=== PATIENT | female | born 1965 | race American Indian/Alaskan Native ===

== ENCOUNTER 2018-04-30 17:01 | Emergency (ER) | payer MEDICARE ==
--- NOTE | 2018-04-30 17:50 | Emergency Department Report ---
Blank Doc - Documentation Documentation: Pt reports cyst on lt breast x 3 days. similar episode abscess on stomach.H/O HIV, DM and HTN. denies fever. Taking HIV medicine and sleeping pills. reports hiv and PCP md TIMMONS Skin: Indurated area to LUQ abdomen. TTP. positive fluctuance his initial assessment diagnostic orders/clinical plan/treatment (s) is/Are subject change based on patient's health status, clinical progression and re- assessment by fellow clinical providers in the ED. Further treatment and work-up at subsequent clinical providers discetion. Patient/guardians urged not to elope from s their condition may be serious if not clinically assessed and managed. Inital order include:incision and drainage of wound, wound CX
[2018-04-30 22:14] LABS: Basophils % (Auto) 0.5 % (0.0-1.8); Eosinophils # (Auto) 0.1 K/mm3 (0.0-0.4); Eosinophils % (Auto) 1.4 % (0.0-4.3); Hematocrit 30.1 % (30.3-42.9); Hemoglobin 10.4 gm/dl (10.1-14.3); Lymphocytes # (Auto) 1.4 K/mm3 (1.2-5.4); Lymphocytes % (Auto) 15.1 % (13.4-35.0); Mean Corpuscular HGB Conc 35 % (30-34); Mean Corpuscular Volume 97 fl (79-97); Monocytes # (Auto) 0.9 K/mm3 (0.0-0.8); Monocytes % (Auto) 9.6 % (0.0-7.3); Platelet Count 262 K/mm3 (140-440); Red Blood Count 3.11 M/mm3 (3.65-5.03); Red Cell Distribution Width 17.3 % (13.2-15.2)
[2018-04-30 22:23] LABS: Alanine Aminotransferase 46 units/L (7-56); Albumin 3.2 g/dL (3.9-5); BUN/Creatinine Ratio 17; Blood Urea Nitrogen 45 mg/dL (7-17); Calcium 8.7 mg/dL (8.4-10.2); Hemolysis Index 4
--- NOTE | 2018-04-30 23:21 | XRay Report ---
PROCEDURE: XR CHEST ROUTINE 2V TECHNIQUE: PA and lateral chest radiographs were obtained. HISTORY: Chest wall pain COMPARISONS: None. FINDINGS: Heart: Normal. Mediastinum/Vessels: Normal. Lungs/Pleural space: Normal. No pneumothorax is noted. Bony thorax: No acute osseous abnormality. No evidence for acute rib fracture is seen. IMPRESSION: No acute cardiopulmonary process seen.. This document is electronically signed by Myrna Wood MD., April 30 2018 10:36:49 PM ET
[2018-05-01] MEDS ORDERED: XYLOCAINE 1%/ EPI 1:100,000 INFILTRATI NR (01:00)
[2018-05-01] MEDS ORDERED: CATAPRES PO ONE (02:42)
--- NOTE | 2018-05-01 03:07 | Emergency Department Report ---
ED General Adult HPI - General Chief complaint: Skin/Abscess/Foreign Body Stated complaint: ABSCESS ON BREAST Time Seen by Provider: 04/30/18 17:44 Source: patient Mode of arrival: Ambulatory Limitations: No Limitations - History of Present Illness Initial comments: She is a 52-year-old female past medical history of HIV who presents with left chest wall abscess. She states that the pain is a 7 out 10 and it is an achy type of pain. Putting pressure on it makes it worse and nothing makes it better. Patient states that it's been there for the last 3 days this incredibly tender to touch. Severity scale (0 -10): 7 - Related Data Previous Rx's Medication Instructions Recorded Last Taken Type Sulfamethoxazole/Trimethoprim 1 each PO BID #12 tablet 05/01/18 Unknown Rx [Bactrim DS TAB] Sulfamethoxazole/Trimethoprim 1 each PO ONCE #12 tablet 05/01/18 Unknown Rx [Bactrim DS TAB] traMADol [Ultram 50 MG tab] 50 mg PO Q6HR PRN #11 tablet 05/01/18 Unknown Rx Allergies Allergy/AdvReac Type Severity Reaction Status Date / Time No Known Allergies Allergy Verified 05/01/18 00:55 ED Review of Systems ROS: Stated complaint: ABSCESS ON BREAST Other details as noted in HPI Constitutional: denies: chills, fever Eyes: denies: eye pain, eye discharge, vision change ENT: denies: ear pain, throat pain Respiratory: denies: cough, shortness of breath, wheezing Cardiovascular: denies: chest pain, palpitations Endocrine: no symptoms reported Gastrointestinal: denies: abdominal pain, nausea, diarrhea Genitourinary: denies: urgency, dysuria, discharge Musculoskeletal: denies: back pain, joint swelling, arthralgia Skin: as per HPI, rash. denies: lesions Neurological: denies: headache, weakness, paresthesias Psychiatric: denies: anxiety, depression Hematological/Lymphatic: denies: easy bleeding, easy bruising ED Past Medical Hx - Past Medical History Hx Hypertension: Yes Hx Diabetes: Yes Hx HIV: Yes - Surgical History Hx Cholecystectomy: Yes Additional Surgical History: abscess removed - Social History Smoking Status: Current Some Day Smoker Substance Use Type: None - Medications Home Medications: Home Medications Medication Instructions Recorded Confirmed Last Taken Type Sulfamethoxazole/Trimethoprim 1 each PO BID #12 tablet 03/03/19 Unknown Rx [Bactrim DS TAB] Sulfamethoxazole/Trimethoprim 1 each PO ONCE #12 tablet 05/01/18 Unknown Rx [Bactrim DS TAB] traMADol [Ultram 50 MG tab] 50 mg PO Q6HR PRN #11 tablet 05/01/18 Unknown Rx ED Physical Exam - General Limitations: No Limitations General appearance: alert, in no apparent distress - Head Head exam: Present: atraumatic, normocephalic - Eye Eye exam: Present: normal appearance - ENT ENT exam: Present: mucous membranes moist - Neck Neck exam: Present: normal inspection - Respiratory Respiratory exam: Present: normal lung sounds bilaterally, other (3x3 cm abscess). Absent: respiratory distress - Cardiovascular Cardiovascular Exam: Present: regular rate, normal rhythm. Absent: systolic murmur, diastolic murmur, rubs, gallop - GI/Abdominal GI/Abdominal exam: Present: soft, normal bowel sounds - Extremities Exam Extremities exam: Present: normal inspection - Back Exam Back exam: Present: normal inspection - Neurological Exam Neurological exam: Present: alert, oriented X3 - Psychiatric Psychiatric exam: Present: normal affect, normal mood - Skin Skin exam: Present: warm, dry, intact, normal color. Absent: rash ED Course Vital Signs 04/30/18 05/01/18 05/01/18 17:06 00:40 00:45 Temperature 98.7 F 99.2 F Pulse Rate 104 H 94 H Respiratory 16 16 Rate Blood Pressure 197/94 Blood Pressure 206/107 [Right] O2 Sat by Pulse 98 100 100 Oximetry 05/01/18 05/01/18 05/01/18 00:46 01:01 02:01 Temperature Pulse Rate 92 H 92 H 89 Respiratory 16 22 27 H Rate Blood Pressure 206/107 220/113 216/108 Blood Pressure [Right] O2 Sat by Pulse 100 99 100 Oximetry 05/01/18 02:55 Temperature Pulse Rate 93 H Respiratory Rate Blood Pressure 216/108 Blood Pressure [Right] O2 Sat by Pulse Oximetry - I & D Left Anterior Type of Procedure: Simple Site: under left breast Blade Size: 11 I & D Procedure: betadine prep, sterile dressing applied ED Medical Decision Making - Lab Data Result diagrams: 04/30/18 21:50 04/30/18 21:50 Lab Results 04/30/18 04/30/18 04/30/18 Range/Units 21:50 21:50 21:50 WBC 9.3 (4.5-11.0) K/mm3 RBC 3.11 L (3.65-5.03) M/mm3 Hgb 10.4 (10.1-14.3) gm/dl Hct 30.1 L (30.3-42.9) % MCV 97 (79-97) fl MCH 34 H (28-32) pg MCHC 35 H (30-34) % RDW 17.3 H (13.2-15.2) % Plt Count 262 (140-440) K/mm3 Lymph % (Auto) 15.1 (13.4-35.0) % [place] % (Auto) 9.6 H (0.0-7.3) % Eos % (Auto) 1.4 (0.0-4.3) % Baso % (Auto) 0.5 (0.0-1.8) % Lymph # 1.4 (1.2-5.4) K/mm3 [place] # 0.9 H (0.0-0.8) K/mm3 Eos # 0.1 (0.0-0.4) K/mm3 Baso # 0.0 (0.0-0.1) K/mm3 Seg Neutrophils % 73.4 H (40.0-70.0) % Seg Neutrophils # 6.8 (1.8-7.7) K/mm3 Sodium 136 L (137-145) mmol/L Potassium 4.2 (3.6-5.0) mmol/L Chloride 104.4 (98-107) mmol/L Carbon Dioxide 19 L (22-30) mmol/L Anion Gap 17 mmol/L BUN 45 H (7-17) mg/dL Creatinine 2.7 H (0.7-1.2) mg/dL Estimated GFR 18 ml/min BUN/Creatinine Ratio 17 % Glucose 105 H (65-100) mg/dL Lactic Acid 0.80 (0.7-2.0) mmol/L Calcium 8.7 (8.4-10.2) mg/dL Total Bilirubin < 0.20 (0.1-1.2) mg/dL AST 22 (5-40) units/L ALT 46 (7-56) units/L Alkaline Phosphatase 138 H (35-129) units/L C-Reactive Protein 2.00 H (0.00-1.30) mg/dL Total Protein 7.4 (6.3-8.2) g/dL Albumin 3.2 L (3.9-5) g/dL Albumin/Globulin Ratio 0.8 % HCG, Qual (Negative) 04/30/18 Range/Units 21:50 WBC (4.5-11.0) K/mm3 RBC (3.65-5.03) M/mm3 Hgb (10.1-14.3) gm/dl Hct (30.3-42.9) % MCV (79-97) fl MCH (28-32) pg MCHC (30-34) % RDW (13.2-15.2) % Plt Count (140-440) K/mm3 Lymph % (Auto) (13.4-35.0) % [place] % (Auto) (0.0-7.3) % Eos % (Auto) (0.0-4.3) % Baso % (Auto) (0.0-1.8) % Lymph # (1.2-5.4) K/mm3 [place] # (0.0-0.8) K/mm3 Eos # (0.0-0.4) K/mm3 Baso # (0.0-0.1) K/mm3 Seg Neutrophils % (40.0-70.0) % Seg Neutrophils # (1.8-7.7) K/mm3 Sodium (137-145) mmol/L Potassium (3.6-5.0) mmol/L Chloride (98-107) mmol/L Carbon Dioxide (22-30) mmol/L Anion Gap mmol/L BUN (7-17) mg/dL Creatinine (0.7-1.2) mg/dL Estimated GFR ml/min BUN/Creatinine Ratio % Glucose (65-100) mg/dL Lactic Acid (0.7-2.0) mmol/L Calcium (8.4-10.2) mg/dL Total Bilirubin (0.1-1.2) mg/dL AST (5-40) units/L ALT (7-56) units/L Alkaline Phosphatase (35-129) units/L C-Reactive Protein (0.00-1.30) mg/dL Total Protein (6.3-8.2) g/dL Albumin (3.9-5) g/dL Albumin/Globulin Ratio % HCG, Qual Negative (Negative) - Radiology Data Radiology results: report reviewed, image reviewed Chest x-ray: Shows no acute cardiopulmonary disease - Medical Decision Making Chief medical diagnosis: Abscess Differential diagnoses: Cellulitis, folliculitis Occupational oral pain medicine and antibiotics and I will incise and drain Patient's blood work is unremarkable I will send patient home with discharge instructions. Additonal verbal discharge instructions were given. Critical care attestation.: If time is entered above; I have spent that time in minutes in the direct care of this critically ill patient, excluding procedure time. ED Disposition Clinical Impression: Abscess Disposition: DC-01 TO HOME OR SELFCARE Is pt being admited?: No Does the pt Need Aspirin: No Condition: Stable Instructions: Abscess Incision and Drainage (ED) Prescriptions: Sulfamethoxazole/Trimethoprim [Bactrim DS TAB] 1 each PO BID #12 tablet traMADol [Ultram 50 MG tab] 50 mg PO Q6HR PRN #11 tablet PRN Reason: Pain Referrals: NAEEM GROVE MD [Staff Physician] - 3-5 Days
[2018-05-01] MEDS ORDERED: BACTRIM DS PO ONE (03:41)
[2018-05-01 04:13] VITALS: BP 197/81
== END 2018-05-01 04:13 | disposition home or self-care (01) ==
LOC: ED 17:01
DX: L02.213 Cutaneous abscess of chest wall (principal); I10 Essential (primary) hypertension; E11.9 Type 2 diabetes mellitus without complications; F17.200 Nicotine dependence, unspecified, uncomplicated
CPT/HCPCS: 36415; 71046; 80053; 82140; 84703; 85025; 86140; 87040; 99283

== ENCOUNTER 2018-05-05 14:19 | Emergency (ER) | payer MEDICARE ==
--- NOTE | 2018-05-05 14:51 | Emergency Department Report ---
HPI - General Chief Complaint: Medical Clearance Time Seen by Provider: 05/05/18 14:42 - HPI HPI: 52-year-old female presents to the emergency department for mental health evaluation. Per previous records, she appears to have a history o f HIV. She was here a few days ago and diagnosed with a chest wall abscess and discharged home. Currently, the patient appears to be having some psychosis and is a poor historian. She was placed in room 17 for evaluation. She took a bucket of medical supplies and fell down onto the ground. She then proceeded to go out into the hallway and laid down on a gurney that had no padding or mattress. The patient can answer a few questions but mostly says "I don't know" to questions asked such as how she got here, the reason she was brought in. ED Past Medical Hx - Past Medical History Hx Hypertension: Yes Hx Diabetes: Yes Hx Psychiatric Treatment: Yes (bipolar, schizophrenia) Hx Dementia: Yes Hx HIV: Yes - Surgical History Hx Cholecystectomy: Yes Additional Surgical History: abscess removed - Social History Smoking Status: Unknown if ever smoked - Medications Home Medications: Home Medications Medication Instructions Recorded Confirmed Last Taken Type Sulfamethoxazole/Trimethoprim 1 each PO BID #12 tablet 05/01/18 Unknown Rx [Bactrim DS TAB] Sulfamethoxazole/Trimethoprim 1 each PO ONCE #12 tablet 05/01/18 Unknown Rx [Bactrim DS TAB] traMADol [Ultram 50 MG tab] 50 mg PO Q6HR PRN #11 tablet 05/01/18 Unknown Rx ED Review of Systems ROS: Stated complaint: PSYCH Other details as noted in HPI Comment: Unobtainable due to pts medical conditions Physical Exam - Physical Exam Vital Signs: Vital Signs 05/05/18 14:36 Temperature 98.7 F Pulse Rate 78 Respiratory 16 Rate Blood Pressure 160/94 [Left] O2 Sat by Pulse 100 Oximetry Physical Exam: GENERAL: The patient is well-developed well-nourished. HEENT: Normocephalic. Atraumatic. Patient has moist mucous membranes. EYES: Extraocular motions are intact. Pupils are equal and reactive to light bilaterally. NECK: Supple. Trachea is midline. CHEST/LUNGS: Clear to auscultation. There is no respiratory distress noted. HEART/CARDIOVASCULAR: Regular. There is no tachycardia. There is no obvious murmur. ABDOMEN: Abdomen is soft, nontender. Patient has normal bowel sounds. There is no abdominal distention. SKIN: Skin is warm and dry. NEURO: Patient is awake but having psychosis. She will follow some commands. No slurred speech. No facial asymmetry. No lateralizing or focal deficits. MUSCULOSKELETAL: There is no tenderness or deformity. There is no limitation range of motion. There is no evidence of acute injury. ED Course Vital Signs 05/05/18 14:36 Temperature 98.7 F Pulse Rate 78 Respiratory 16 Rate Blood Pressure 160/94 [Left] O2 Sat by Pulse 100 Oximetry ED Medical Decision Making - Lab Data Result diagrams: 05/05/18 15:08 05/05/18 15:40 - Medical Decision Making This patient presents to the emergency department via EMS from home after her daughter called because the patient was having some type of a "psychotic break." I'm not aware of any diagnosed psychiatric conditions but apparently she has had this in the past. The patient got to the emergency department she started feeling some of the medical bit onto the ground. She then was found laying on the ground and on a unused gurney in the hallway. We were able to redirect her back into room 17. We're awaiting a urine sample to do a urinalysis and urine drug screen. Normal-appearing CBC and blood alcohol level. The metabolic panel shows some chronic kidney disease as she had a creatinine of 2.7 1 week ago here and it is currently 2.4 the patient has been admitted 1013 as she appears to be having some acute psychosis and would be unable to function or do her ADLs and her current condition. The patient has a urinary tract infection, antibiotics will be added. Vital signs stable throughout her ED course thus far. The patient appears medically cleared for psychiatric placement. - Differential Diagnosis schizophrenia, schizoaffective, bipolar disorder, substance abuse Critical Care Time: No Critical care attestation.: If time is entered above; I have spent that time in minutes in the direct care of this critically ill patient, excluding procedure time. ED Disposition Clinical Impression: Acute psychosis CKD (chronic kidney disease) Qualifiers: Chronic kidney disease stage: unspecified stage Qualified Code(s): N18.9 - Chronic kidney disease, unspecified Hypertension Qualifiers: Hypertension type: essential hypertension Qualified Code(s): I10 - Essential (primary) hypertension UTI (urinary tract infection) Qualifiers: Urinary tract infection type: acute cystitis Hematuria presence: without hematuria Qualified Code(s): N30.00 - Acute cystitis without hematuria Disposition: DC/TX-65 PSY HOSP/PSY UNIT Is pt being admited?: No Condition: Stable Instructions: Hypertension (ED) Referrals: MANDO ZARATE MD [Primary Care Provider] - 3-5 Days Time of Disposition: 19:29
[2018-05-05 15:26] LABS: Hematocrit 35.6 % (30.3-42.9); Hemoglobin 11.4 gm/dl (10.1-14.3); Mean Corpuscular Volume 100 fl (79-97); Red Blood Count 3.56 M/mm3 (3.65-5.03)
[2018-05-05 15:27] LABS: Mean Corpuscular HGB Conc 32 % (30-34); Platelet Count 217 K/mm3 (140-440); Red Cell Distribution Width 17.1 % (13.2-15.2)
[2018-05-05 15:28] LABS: Basophils % (Auto) 0.6 % (0.0-1.8); Eosinophils % (Auto) 2.5 % (0.0-4.3); Lymphocytes # (Auto) 1.3 K/mm3 (1.2-5.4); Lymphocytes % (Auto) 29.3 % (13.4-35.0); Monocytes % (Auto) 9.4 % (0.0-7.3)
[2018-05-05 15:29] LABS: Eosinophils # (Auto) 0.1 K/mm3 (0.0-0.4); Monocytes # (Auto) 0.4 K/mm3 (0.0-0.8)
[2018-05-05] MEDS ORDERED: GEODON IM ONE ×2 (15:51→16:25)
[2018-05-05 16:12] LABS: Calcium 9.2 mg/dL (8.4-10.2)
[2018-05-05] MEDS ORDERED: WATER FOR INJ (PF) ONE (16:25)
[2018-05-05] MEDS ORDERED: CATAPRES PO ONE (19:28)
[2018-05-06 04:26] LABS: Amphetamine Screen,Urine PRESUMPTIVE NEGATIVE; Benzodiazepines Screen,Urine PRESUMPTIVE NEGATIVE; Cannabinoid Screen,Urine PRESUMPTIVE NEGATIVE; Cocaine Screen,Urine PRESUMPTIVE NEGATIVE; Methadone Screen,Urine PRESUMPTIVE NEGATIVE; Opiate Screen,Urine PRESUMPTIVE NEGATIVE
[2018-05-06 04:27] LABS: Bilirubin,Urine NEG (Negative); Blood,Urine LG (Negative); Color,Urine Yellow (Yellow); Urobilinogen,Urine < 2.0 mg/dL (<2.0)
[2018-05-06 04:28] LABS: RBC,Urine > 182.0 /HPF (0.0-6.0); WBC,Urine > 182.0 /HPF (0.0-6.0)
[2018-05-06] MEDS ORDERED: MACROBID PO SCH (10:00)
--- NOTE | 2018-05-06 10:42 | Consultation ---
History of Present Illness - Reason for Consult Consult date: 05/06/18 Reason for consult: Mental health Evaluation Requesting physician: SEBASTIÁN JACOB - Chief Complaint Chief complaint: "What" - History of Present Psychiatric Illness 52-year-old female presents to the emergency department for mental health evaluation. Today the patient is calm, but disorganized during the assessment. She wasn't lucid throughout the interview. She stated that I the provider know why she came to the ER. At this time, the patient isn't a good historian. Medications and Allergies Allergies Allergy/AdvReac Type Severity Reaction Status Date / Time No Known Allergies Allergy Verified 05/05/18 14:30 Home Medications Medication Instructions Recorded Confirmed Last Taken Type Sulfamethoxazole/Trimethoprim 1 each PO BID #12 tablet 05/01/18 Unknown Rx [Bactrim DS TAB] Sulfamethoxazole/Trimethoprim 1 each PO ONCE #12 tablet 05/01/18 Unknown Rx [Bactrim DS TAB] traMADol [Ultram 50 MG tab] 50 mg PO Q6HR PRN #11 tablet 05/01/18 Unknown Rx Active Meds: Active Medications Nitrofurantoin Macrocrystals (Macrobid) 100 mg PO BID JAKE Stop: 05/12/18 22:01 Past psychiatric history - Past Medical History Past Medical History: HIV/AIDS Past Surgical History: Other (Unable to obtain) - past Psychiatric treatment and history psychiatric treatment history: Unable to obtain a psy hx and fam psy hx. - Social History Social history: other (Reside at a intermediate) Mental Status Exam - Vital signs Last Vital Signs Temp 98.2 F 05/06/18 01:42 Pulse 75 05/06/18 01:42 Resp 16 05/06/18 01:42 BP 132/67 05/06/18 01:42 Pulse Ox 97 05/06/18 01:42 - Exam Narrative exam: MSE: Appearance: calm Behavior: regular eye contact Speech: regular rate and loud tone; luxembour[place] speaking Mood: preoccupied, guarded Affect constricted Thought Process: disorganized Thought Content: unable to assess Motor Activity: in the bed Cognition: alert Insight: poor Judgment: unable to assess Results Result Diagrams: 05/05/18 15:08 05/05/18 15:40 Abnormal lab results 05/05/18 05/05/18 05/06/18 Range/Units 15:08 15:40 03:28 RBC 3.56 L (3.65-5.03) M/mm3 MCV 100 H (79-97) fl RDW 17.1 H (13.2-15.2) % [place] % (Auto) 9.4 H (0.0-7.3) % Carbon Dioxide 19 L (22-30) mmol/L BUN 32 H (7-17) mg/dL Creatinine 2.4 H (0.7-1.2) mg/dL Glucose 113 H (65-100) mg/dL Urine WBC (Auto) > 182.0 H (0.0-6.0) /HPF All other labs normal. Assessment and Plan Assessment and plan: Impression: Unspecified Psychosis. Today the patient is calm, but disorganized during the assessment. UDS is negative. DDx: Schizophrenia, Bipolar DO with psychosis Recommendation/Plan: Continue 1013. Diso: The patient was accepted at [facility] for inpatient psy services. Will staff with Dr Zaidi.
[2018-05-06 11:00] VITALS: BP 154/62
== END 2018-05-06 10:01 ==
LOC: ED 14:19
DX: F29 Unspecified psychosis not due to a substance or known physiological condition (principal)
CPT/HCPCS: 36415; 80048; 80307; 81001; 82962; 85025; 96372; 99285; G0480; J3486; 80320

== ENCOUNTER 2018-05-31 14:28 | Emergency (ER) | payer MEDICARE ==
[2018-05-31 14:42] VITALS: BP 198/111
--- NOTE | 2018-05-31 14:44 | Emergency Department Report ---
Blank Doc - Documentation Documentation: pt presents for psych evaluation, she is not anwering questions when asked but [place] and stating she doesnt feel good
[2018-05-31 15:31] LABS: Basophils # (Auto) 0.1 K/mm3 (0.0-0.1); Basophils % (Auto) 0.8 % (0.0-1.8); Eosinophils # (Auto) 0.1 K/mm3 (0.0-0.4); Eosinophils % (Auto) 0.9 % (0.0-4.3); Hematocrit 32.9 % (30.3-42.9); Hemoglobin 10.9 gm/dl (10.1-14.3); Lymphocytes % (Auto) 30.5 % (13.4-35.0); Mean Corpuscular HGB Conc 33 % (30-34); Mean Corpuscular Volume 94 fl (79-97); Monocytes # (Auto) 0.7 K/mm3 (0.0-0.8); Monocytes % (Auto) 11.2 % (0.0-7.3); Platelet Count 305 K/mm3 (140-440); Red Blood Count 3.52 M/mm3 (3.65-5.03); Red Cell Distribution Width 16.6 % (13.2-15.2)
[2018-05-31 15:52] LABS: Albumin 3.3 g/dL (3.9-5); Calcium 8.7 mg/dL (8.4-10.2)
== END 2018-05-31 15:47 | disposition left against medical advice (07) ==
LOC: ED 14:28
DX: F31.9 Bipolar disorder, unspecified (principal); Z53.21 Procedure and treatment not carried out due to patient leaving prior to being seen by health care provider
CPT/HCPCS: 36415; 80053; 80178; 80185; 82962; 85025; G0480; 80320

== ENCOUNTER 2018-05-31 17:00 | Inpatient (IN) | payer MEDICARE ==
--- NOTE | 2018-05-31 17:20 | Emergency Department Report ---
ED Psych HPI - General Stated Complaint: FALL Time Seen by Provider: 05/31/18 17:11 Source: RN notes reviewed, old records reviewed Mode of arrival: Stretcher Limitations: Other - History of Present Illness Initial Comments: 52-year-old female the past medical history HIV, diabetes, bipolar, hypertension, renal insufficiency, and schizophrenia presents to the hospital with pain all over after fall. Patient is a very poor historian. Patient was wheeled into the Department and states she can't walk due to generalized pain. This is patient's second visit today. Medical record reviewed. Patient was here May 05 with a similar presentation that includes psychosis and complaint of falls. She was placed on a 1013 and subsequently transferred to [facility] . Since then patient has been downgraded to the [facility] [place]. She walks here earlier with a unclear complaint other than she did not feel good. The police transported her back to the [place] after inpatient walked back over the patient. Patient was transported back to the ER via wheelchair from the [facility]'s [place] after being found on the lobby floor stating that she fell. She does not provide any other details other than she fell and she hurts all over. [place] was recontacted the patient is reportedly voluntary and they have no idea while patient presented to the ER twice today. - Related Data Previous Rx's Medication Instructions Recorded Last Taken Type Sulfamethoxazole/Trimethoprim 1 each PO BID #12 tablet 05/01/18 Unknown Rx [Bactrim DS TAB] Sulfamethoxazole/Trimethoprim 1 each PO ONCE #12 tablet 05/01/18 Unknown Rx [Bactrim DS TAB] traMADol [Ultram 50 MG tab] 50 mg PO Q6HR PRN #11 tablet 05/01/18 Unknown Rx Allergies Allergy/AdvReac Type Severity Reaction Status Date / Time No Known Allergies Allergy Verified 05/05/18 14:30 ED Review of Systems ROS: Stated complaint: FALL Other details as noted in HPI Comment: Unobtainable due to pts medical conditions ED Past Medical Hx - Past Medical History Hx Hypertension: Yes Hx Diabetes: Yes Hx Psychiatric Treatment: Yes (bipolar, schizophrenia) Hx Dementia: Yes Hx HIV: Yes - Surgical History Hx Cholecystectomy: Yes Additional Surgical History: abscess removed - Social History Smoking Status: Current Every Day Smoker Substance Use Type: Alcohol - Medications Home Medications: Home Medications Medication Instructions Recorded Confirmed Last Taken Type Sulfamethoxazole/Trimethoprim 1 each PO BID #12 tablet 05/01/18 Unknown Rx [Bactrim DS TAB] Sulfamethoxazole/Trimethoprim 1 each PO ONCE #12 tablet 05/01/18 Unknown Rx [Bactrim DS TAB] traMADol [Ultram 50 MG tab] 50 mg PO Q6HR PRN #11 tablet 05/01/18 Unknown Rx ED Physical Exam - Other Other exam information: General: Patient was not reliably follow commands or engage in conversation Head exam: Atraumatic, normocephalic Eyes exam: Normal appearance, pupils equal reactive to light, extraocular movements intact ENT: Moist mucous membrane, Neck exam: Normal inspection, full range of motion, no meningismus nontender Respiratory exam: Clear to auscultation bilateral, no wheezes, rales, crackles Cardiovascular: Normal rate and rhythm Abdomen: Soft, nondistended, and nontender, with normal bowel sounds, no rebound, or guarding Extremity: She complains of pain to all extremities with light palpation with no deformity or gross abnormality noted. Back: Normal Inspection, full range of motion, generalized pain with palpation without contusion noted. Neurologic: Patient is alert but does close her eyes and stopped responding to questions but easily arousable with tactile stimulation. Patient is able to sit up and apparently slouches over light she cannot support her weight but that she does not fall to the ground. She will not stand up or ambulate. Psychiatric: Poor eye contact, flat affect, patient answers I don't know to most questions Skin: Warm, dry, intact ED Course Vital Signs 05/31/18 17:46 Temperature 98.9 F Pulse Rate 101 H Respiratory 18 Rate Blood Pressure 145/84 Blood Pressure 145/84 [Right] O2 Sat by Pulse 98 Oximetry - Consultations Consultation #1: 05/31/18 19:27 Dr Frost (nephro) consulted. Will evaluate pt ED Medical Decision Making - Lab Data Laboratory Results - last 72 hr 05/31/18 05/31/18 05/31/18 17:38 17:56 17:56 POC Glucose 103 Total Creatine Kinase 256 H CK-MB (CK-2) 7.0 H CK-MB (CK-2) Rel Index 2.7 Troponin T 0.023 Plasma/Serum Alcohol < 0.01 please refer to recent visit today for additional labs - EKG Data -: EKG Interpreted by Me EKG shows normal: sinus rhythm, axis (qrs 34), QRS complexes (qrsd 85), ST-T waves (no stemi/t inv) Rate: normal (90) - Radiology Data Radiology results: report reviewed PROCEDURE: CT HEAD/BRAIN WO CON TECHNIQUE: CT images of the head were obtained without the use of IV contrast HISTORY: fall, psychosis COMPARISONS: None FINDINGS: No CT evidence of intracranial mass, hemorrhage, acute territorial infarction, or hydrocephalus. Intracranial arteries are symmetric in density. Calvarium is intact. The visualized paranasal sin uses and mastoids are aerated. IMPRESSION: No CT evidence of acute intracranial abnormality. - Medical Decision Making pt represents with c/o falls. poor historian with hx of psychosis. Pt was able to ambulate with nurse assistance. mild worsening creatine with worsening potassium. ct head, ekg neg. no external/physical signs of injury. Hx of hiv as per med record with no hiv testing or cd4 on record. pt tx with meds for hyperkalemia. nephrology consulted. Urine collection pending since pt had a uti on recent visit. Plan to admit to hospital for further treatment - Differential Diagnosis uti, encephalopathy, psychosis, injury Critical Care Time: No Critical care attestation.: If time is entered above; I have spent that time in minutes in the direct care of this critically ill patient, excluding procedure time. ED Disposition Clinical Impression: Frequent falls, Generalized weakness, History of HIV infection, Schizophrenia, Psychosis, Poor historian, Acute on chronic renal insufficiency, Hyperkalemia Disposition: OP ADMIT IP TO THIS HOSP Is pt being admited?: Yes Condition: Stable Time of Disposition: 19:13 (hosptialist)
[2018-05-31] MEDS ORDERED: KIONEX PO ONE (17:34)
[2018-05-31] MEDS ORDERED: PROVENTIL IH ONE (17:35)
[2018-05-31] MEDS ORDERED: NACL 0.9% 500 ML 500 ML IV ONE (17:39)
[2018-05-31] MEDS ORDERED: LASIX IV ONE (17:40)
[2018-05-31] MEDS ORDERED: NACL 0.9% 1000 ML 1,000 ML IV ONE (17:40)
--- NOTE | 2018-05-31 18:40 | Cat Scan Report ---
PROCEDURE: CT HEAD/BRAIN WO CON TECHNIQUE: CT images of the head were obtained without the use of IV contrast HISTORY: fall, psychosis COMPARISONS: None FINDINGS: No CT evidence of intracranial mass, hemorrhage, acute territorial infarction, or hydrocephalus. Intr acranial arteries are symmetric in density. Calvarium is intact. The visualized paranasal sinuses and mastoids are aerated. IMPRESSION: No CT evidence of acute intracranial abnormality. This document is electronically signed by Beti Simms MD., May 31 2018 06:38:17 PM ET
[2018-05-31] MEDS ORDERED: HumuLIN R IV ONE (19:05)
[2018-05-31] MEDS ORDERED: D50W (25GM) Vial IV ONE (19:05)
[2018-05-31] MEDS ORDERED: D50W (25GM) Syringe IV ONE (20:00)
[2018-05-31 20:11] LABS: Amphetamine Screen,Urine PRESUMPTIVE NEGATIVE; Benzodiazepines Screen,Urine PRESUMPTIVE NEGATIVE; Cannabinoid Screen,Urine PRESUMPTIVE NEGATIVE; Cocaine Screen,Urine PRESUMPTIVE NEGATIVE; Methadone Screen,Urine PRESUMPTIVE NEGATIVE; Opiate Screen,Urine PRESUMPTIVE NEGATIVE
[2018-05-31 20:13] LABS: Bacteria,Urine 1+ /HPF (Negative); Bilirubin,Urine NEG (Negative); Blood,Urine SM (Negative); Color,Urine Yellow (Yellow); Urobilinogen,Urine < 2.0 mg/dL (<2.0)
[2018-05-31 20:15] LABS: WBC,Urine > 182.0 /HPF (0.0-6.0)
[2018-05-31] MEDS ORDERED: SODIUM CHLORIDE FLUSH SYRINGE 10 ML IV PRN (21:28)
[2018-05-31] MEDS ORDERED: TYLENOL PO PRN (21:28)
[2018-05-31] MEDS ORDERED: ZOFRAN IV PRN (21:28)
--- NOTE | 2018-05-31 21:32 | History and Physical Report ---
History of Present Illness Date of examination: 05/31/18 Date of admission: 05/31/2018 Chief complaint: Generalized pain History of present illness: Patient is a 52-year-old female with PMHx of HIV, DM type 2, bipolar, hypertension, renal insufficiency, schizophrenia and morbid obesity who was brought to the hospital after falling in front of the hospital ([facility]) today. Patient is unable to provide any medical history, she complains of pain all over her body mostly from the fall. No family was available, most of the history was obtained from patient's chart and from pt's nurse. Apparently patient is currently in a mental facility, she is unable to recall her medical condition nor provide the list of her home medications. Pt was assessed, Labs were reviewed, cardiac workup was initiated because of troponin level of 0.23. Patient is admitted for further evaluation and treatment. Past History Past Medical History: diabetes, HIV/AIDS, hypertension, hyperlipidemia Past Surgical History: No surgical history Medications and Allergies Allergies Allergy/AdvReac Type Severity Reaction Status Date / Time No Known Allergies Allergy Verified 05/05/18 14:30 Home Medications Medication Instructions Recorded Confirmed Last Taken Type Sulfamethoxazole/Trimethoprim 1 each PO BID #12 tablet 05/01/18 Unknown Rx [Bactrim DS TAB] Sulfamethoxazole/Trimethoprim 1 each PO ONCE #12 tablet 05/01/18 Unknown Rx [Bactrim DS TAB] traMADol [Ultram 50 MG tab] 50 mg PO Q6HR PRN #11 tablet 05/01/18 Unknown Rx Review of Systems Cardiovascular: chest pain Gastrointestinal: abdominal pain Exam - Constitutional Vitals: Temp Pulse Resp BP Pulse Ox 98.9 F 98 H 23 134/80 100 05/31/18 17:46 05/31/18 21:00 05/31/18 21:00 05/31/18 21:00 05/31/18 19:45 General appearance: Present: no acute distress - EENT Eyes: Present: EOM intact ENT: hearing intact - Neck Neck: Present: normal ROM - Respiratory Respiratory effort: normal Respiratory: bilateral: CTA - Cardiovascular Heart Sounds: Present: S1 & S2 Peripheral Pulses: within normal limits - Abdominal General gastrointestinal: Present: tender, distended Female genitourinary: Present: deferred - Rectal Rectal Exam: deferred - Integumentary Integumentary: Present: warm, dry - Musculoskeletal Musculoskeletal: generalized weakness - Psychiatric Psychiatric: cooperative - Neurologic Neurologic: CNII-XII intact Results - Labs CBC & Chem 7: 05/31/18 23:39 Labs: Laboratory Last Values POC Glucose 103 (70-105) 05/31/18 17:38 Total Creatine Kinase 256 units/L (30-135) H 05/31/18 17:56 CK-MB (CK-2) 7.0 ng/mL (0.0-4.0) H 05/31/18 17:56 CK-MB (CK-2) Rel Index 2.7 (0-4) 05/31/18 17:56 Troponin T 0.023 ng/mL (0.00-0.029) 05/31/18 17:56 Urine Color Yellow (Yellow) 05/31/18 19:32 Urine Turbidity Cloudy (Clear) 05/31/18 19:32 Urine pH 6.0 (5.0-7.0) 05/31/18 19:32 Ur Specific [place] 1.009 (1.003-1.030) 05/31/18 19:32 Urine Protein 100 mg/dl mg/dL (Negative) 05/31/18 19:32 Urine Glucose (UA) Neg mg/dL (Negative) 05/31/18 19:32 Urine Ketones Neg mg/dL (Negative) 05/31/18 19:32 Urine Blood Sm (Negative) 05/31/18 19:32 Urine Nitrite Neg (Negative) 05/31/18 19:32 Urine Bilirubin Neg (Negative) 05/31/18 19:32 Urine Urobilinogen < 2.0 mg/dL (<2.0) 05/31/18 19:32 Ur Leukocyte Esterase Lg (Negative) 05/31/18 19:32 Urine WBC (Auto) > 182.0 /HPF (0.0-6.0) H 05/31/18 19:32 Urine RBC (Auto) 83.0 /HPF (0.0-6.0) 05/31/18 19:32 U Epithel Cells (Auto) 4.0 /HPF (0-13.0) 05/31/18 19:32 Urine Bacteria (Auto) 1+ /HPF (Negative) 05/31/18 19:32 Urine WBC Clumps 3+ /HPF 05/31/18 19:32 Urine Yeast (Budding) 2+ /HPF 05/31/18 19:32 Urine Opiates Screen Presumptive negative 05/31/18 19:32 Urine Methadone Screen Presumptive negative 05/31/18 19:32 Ur Barbiturates Screen Presumptive negative 05/31/18 19:32 Ur Phencyclidine Scrn Presumptive negative 05/31/18 19:32 Ur Amphetamines Screen Presumptive negative 05/31/18 19:32 U Benzodiazepines Scrn Presumptive negative 05/31/18 19:32 Urine Cocaine Screen Presumptive negative 05/31/18 19:32 U Marijuana (THC) Screen Presumptive negative 05/31/18 19:32 Drugs of Abuse Note Disclamer 05/31/18 19:32 Plasma/Serum Alcohol < 0.01 % (0-0.07) 05/31/18 17:56 Assessment and Plan Assessment and plan: 1. Elevated troponin I 2. Acute renal insufficiency 3. DM type II 4. Hypertension 5. Hyperlipidemia 6. Morbid obesity 7. Schizophrenia 8. HIV infection (unknown CD4, viral load) 9. Hyperkalemia 10. Dementia Plan: Patient is admitted for acute psychosis Troponin every 6 hours 2 Monitor blood pressure/VS Continue to monitor mental status Resume home meds DVT prophylaxis Accu-Chek before meals and at bedtime with insulin sliding scale Patient's condition and plan of care discussed with Dr. Newell Advance Directives: Yes VTE prophylaxis?: Chemical Plan of care discussed with patient/family: Yes
[2018-05-31] MEDS ORDERED: NITROSTAT SL PRN (21:44)
[2018-06-01 00:13] LABS: Calcium 8.7 mg/dL (8.4-10.2)
[2018-06-01] MEDS ORDERED: NACL 0.9% 1000 ML 1,000 ML ONE (00:34)
[2018-06-01] MEDS: NACL 0.9% 1000 ML 1,000 ML IV SCH ×2 (02:43→06:22)
[2018-06-01] MEDS: HumuLIN R SUB-Q SCH ×4 (02:44→21:25)
[2018-06-01] MEDS: SODIUM CHLORIDE FLUSH SYRINGE 10 ML IV SCH ×3 (02:45→21:25)
[2018-06-01] MEDS: DUONEB *Not for PRN Use IH SCH ×4 (03:05→20:09)
[2018-06-01 05:50] LABS: Basophils % (Auto) 0.7 % (0.0-1.8); Eosinophils # (Auto) 0.1 K/mm3 (0.0-0.4); Eosinophils % (Auto) 1.1 % (0.0-4.3); Hematocrit 29.4 % (30.3-42.9); Hemoglobin 9.7 gm/dl (10.1-14.3); Lymphocytes # (Auto) 1.9 K/mm3 (1.2-5.4); Lymphocytes % (Auto) 40.1 % (13.4-35.0); Mean Corpuscular HGB Conc 33 % (30-34); Mean Corpuscular Volume 93 fl (79-97); Monocytes # (Auto) 0.6 K/mm3 (0.0-0.8); Monocytes % (Auto) 13.7 % (0.0-7.3); Platelet Count 245 K/mm3 (140-440); Red Blood Count 3.16 M/mm3 (3.65-5.03); Red Cell Distribution Width 16.5 % (13.2-15.2)
[2018-06-01 06:23] LABS: Calcium 8.3 mg/dL (8.4-10.2)
[2018-06-01] MEDS: ECOTRIN PO SCH (09:38)
--- NOTE | 2018-06-01 09:49 | Consultation ---
History of Present Illness - Reason for Consult Consult date: 06/01/18 acute renal failure Requesting physician: DALJIT CHIRINOS - History of Present Illness Patient is a 52-year-old female with PMHx of HIV, DM type 2, bipolar, hypertension, renal insufficiency, schizophrenia and morbid obesity who was brought to the hospital after falling [facility]. Patient is unable to provide any medical history, she complains of pain all over her body mostly from the fall. No family was available, most of the history was obtained from patient's chart and from pt's nurse. Apparently patient is currently in a mental facility. Renal consult requested for a serum creatinine of 3.3. Review of records indicate that she had a serum creatinine approximately 2.7 last month. Patient however does not acknowledge any history of kidney disease. Denies any significant nonsteroidal intake Past History Past Medical History: diabetes, HIV/AIDS, hypertension, hyperlipidemia Past Surgical History: No surgical history Medications and Allergies Allergies Allergy/AdvReac Type Severity Reaction Status Date / Time No Known Allergies Allergy Verified 05/05/18 14:30 Home Medications Medication Instructions Recorded Confirmed Last Taken Type Sulfamethoxazole/Trimethoprim 1 each PO BID #12 tablet 05/01/18 Unknown Rx [Bactrim DS TAB] Sulfamethoxazole/Trimethoprim 1 each PO ONCE #12 tablet 05/01/18 Unknown Rx [Bactrim DS TAB] traMADol [Ultram 50 MG tab] 50 mg PO Q6HR PRN #11 tablet 05/01/18 Unknown Rx Active Meds: Active Medications Acetaminophen (Tylenol) 650 mg PO Q4H PRN PRN Reason: Pain MILD(1-3)/Fever >100.5/BROOKS Albuterol/Ipratropium (Duoneb *Not For Prn Use*) 1 ampul IH Q6HRT [facility] Last Admin: 06/01/18 07:51 Dose: 1 ampul Documented by: Aspirin (Ecotrin) 325 mg PO QDAY [facility] Last Admin: 06/01/18 09:38 Dose: 325 mg Documented by: Sodium Chloride (Nacl 0.9% 1000 Ml) 1,000 mls @ 75 mls/hr IV DIRECT [facility] Last Admin: 06/01/18 06:22 Dose: 75 mls/hr Documented by: Insulin Human Regular (Humulin R) 0 units SUB-Q ACHS [facility]; Protocol Last Admin: 06/01/18 08:54 Dose: Not Given Documented by: Nitroglycerin (Nitrostat) 0.4 mg SL .Q5MIN PRN PRN Reason: Chest Pain Ondansetron HCl (Zofran) 4 mg IV Q8H PRN PRN Reason: Nausea And Vomiting Sodium Chloride (Sodium Chloride Flush Syringe 10 Ml) 10 ml IV BID [facility] Last Admin: 06/01/18 09:38 Dose: 10 ml Documented by: Sodium Chloride (Sodium Chloride Flush Syringe 10 Ml) 10 ml IV PRN PRN PRN Reason: LINE FLUSH Review of Systems All systems: negative (negative except as noted above) Exam - Vital Signs Vital signs: Vital Signs Temp Pulse Resp BP Pulse Ox 98.9 F 101 H 18 145/84 98 05/31/18 17:46 05/31/18 17:46 05/31/18 17:46 05/31/18 17:46 05/31/18 17:46 - General Appearance General appearance: well-developed, well-nourished, appears stated age EENT: PERRL, mucous membranes moist Neck: Present: neck supple, trachea midline. Absent: JVD/HJR, Masses Respiratory: Clear to Ascultation Heart: regular, normal heart rate, S1S2, no murmurs Gastrointestinal: Present: normal, normoactive bowel sounds Integumentary: no rash, warm and dry, other (no edema) Results - Lab Results 06/01/18 05:19 06/01/18 05:19 Most recent lab results Calcium 8.3 mg/dL (8.4-10.2) L 06/01/18 05:19 Assessment and Plan Impression * Acute on chronic renal failure * Bipolar disorder * HIV disease * Hypertension * Diabetes * Obesity * Urinary tract infection Recommendations * A urine does show pyuria as well as 2+ dipstick protein. She may have underlying diabetic nephropathy * Check fractional excretion of sodium and urine for eosinophils * Renal ultrasound to assess kidney size and echogenicity * It appears the patient does have a history of underlying chronic kidney disease. * Baseline creatinine however is not known. As noted above her serum creatinine was 2.7 in April 2018 * Recent rise in creatinine may be due to Bactrim which she was taking at the time of admission. She may have a prerenal component as well * Agree with IV hydration * Monitor fluid status and electrolytes closely * Avoid nephrotoxins * Thank you very much for the consultation. Shall follow along with you
--- NOTE | 2018-06-01 13:03 | Progress Note ---
Assessment and Plan Assessment and plan: Acute on chronic kidney disease. Nephrology following. Renal ultrasound to assess kidney size and echogenicity. Baseline creatinine however is not known. As noted above her serum creatinine was 2.7 in April 2018 UTI. IV antibiotics and follow-up blood and urine cultures. HIV disease. Consider ID consultation. Hypertension. Resume antihypertensive medications. Diabetes mellitus type 2. Continue Accu-Cheks and sliding scale regular insulin Schizophrenia. ? Acute psychosis. Psychiatric consultation. Morbid obesity. History Interval history: No new issues since admission. Hospitalist Physical - Constitutional Vitals: Temp Pulse Resp BP Pulse Ox 97.6 F 78 20 151/84 95 06/01/18 09:56 06/01/18 09:56 06/01/18 09:56 06/01/18 09:56 06/01/18 09:56 General appearance: Present: no acute distress - EENT Eyes: Present: PERRL, EOM intact ENT: hearing intact, clear oral mucosa, dentition normal - Neck Neck: Present: supple, normal ROM - Respiratory Respiratory effort: normal Respiratory: bilateral: CTA - Cardiovascular Rhythm: regular Heart Sounds: Present: S1 & S2. Absent: gallop, rub - Extremities Extremities: no ischemia, No edema, Full ROM - Abdominal General gastrointestinal: soft, non-tender, non-distended, normal bowel sounds - Integumentary Integumentary: Present: clear, warm, dry - Neurologic Neurologic: CNII-XII intact, moves all extremities Results - Labs CBC & Chem 7: 06/01/18 05:19 06/01/18 05:19 Labs: Laboratory Last Values WBC 4.7 K/mm3 (4.5-11.0) 06/01/18 05:19 RBC 3.16 M/mm3 (3.65-5.03) L 06/01/18 05:19 Hgb 9.7 gm/dl (10.1-14.3) L 06/01/18 05:19 Hct 29.4 % (30.3-42.9) L 06/01/18 05:19 MCV 93 fl (79-97) 06/01/18 05:19 MCH 31 pg (28-32) 06/01/18 05:19 MCHC 33 % (30-34) 06/01/18 05:19 RDW 16.5 % (13.2-15.2) H 06/01/18 05:19 Plt Count 245 K/mm3 (140-440) 06/01/18 05:19 Lymph % (Auto) 40.1 % (13.4-35.0) H 06/01/18 05:19 [place] % (Auto) 13.7 % (0.0-7.3) H 06/01/18 05:19 Eos % (Auto) 1.1 % (0.0-4.3) 06/01/18 05:19 Baso % (Auto) 0.7 % (0.0-1.8) 06/01/18 05:19 Lymph # 1.9 K/mm3 (1.2-5.4) 06/01/18 05:19 [place] # 0.6 K/mm3 (0.0-0.8) 06/01/18 05:19 Eos # 0.1 K/mm3 (0.0-0.4) 06/01/18 05:19 Baso # 0.0 K/mm3 (0.0-0.1) 06/01/18 05:19 Seg Neutrophils % 44.4 % (40.0-70.0) 06/01/18 05:19 Seg Neutrophils # 2.1 K/mm3 (1.8-7.7) 06/01/18 05:19 Sodium 137 mmol/L (137-145) 06/01/18 05:19 Potassium 4.5 mmol/L (3.6-5.0) 06/01/18 05:19 Chloride 105.6 mmol/L (98-107) 06/01/18 05:19 Carbon Dioxide 21 mmol/L (22-30) L 06/01/18 05:19 Anion Gap 15 mmol/L 06/01/18 05:19 BUN 34 mg/dL (7-17) H 06/01/18 05:19 Creatinine 3.3 mg/dL (0.7-1.2) H 06/01/18 05:19 Estimated GFR 18 ml/min 06/01/18 05:19 BUN/Creatinine Ratio 10 % 06/01/18 05:19 Glucose 95 mg/dL (65-100) 06/01/18 05:19 POC Glucose 86 (70-105) 06/01/18 11:47 Calcium 8.3 mg/dL (8.4-10.2) L 06/01/18 05:19 Total Creatine Kinase 256 units/L (30-135) H 05/31/18 17:56 CK-MB (CK-2) 7.0 ng/mL (0.0-4.0) H 05/31/18 17:56 CK-MB (CK-2) Rel Index 2.7 (0-4) 05/31/18 17:56 Troponin T 0.023 ng/mL (0.00-0.029) 06/01/18 05:19 Urine Color Yellow (Yellow) 05/31/18 19:32 Urine Turbidity Cloudy (Clear) 05/31/18 19:32 Urine pH 6.0 (5.0-7.0) 05/31/18 19:32 Ur Specific [place] 1.009 (1.003-1.030) 05/31/18 19:32 Urine Protein 100 mg/dl mg/dL (Negative) 05/31/18 19:32 Urine Glucose (UA) Neg mg/dL (Negative) 05/31/18 19:32 Urine Ketones Neg mg/dL (Negative) 05/31/18 19:32 Urine Blood Sm (Negative) 05/31/18 19:32 Urine Nitrite Neg (Negative) 05/31/18 19:32 Urine Bilirubin Neg (Negative) 05/31/18 19:32 Urine Urobilinogen < 2.0 mg/dL (<2.0) 05/31/18 19:32 Ur Leukocyte Esterase Lg (Negative) 05/31/18 19:32 Urine WBC (Auto) > 182.0 /HPF (0.0-6.0) H 05/31/18 19:32 Urine RBC (Auto) 83.0 /HPF (0.0-6.0) 05/31/18 19:32 U Epithel Cells (Auto) 4.0 /HPF (0-13.0) 05/31/18 19:32 Urine Bacteria (Auto) 1+ /HPF (Negative) 05/31/18 19:32 Urine WBC Clumps 3+ /HPF 05/31/18 19:32 Urine Yeast (Budding) 2+ /HPF 05/31/18 19:32 Urine Opiates Screen Presumptive negative 05/31/18 19:32 Urine Methadone Screen Presumptive negative 05/31/18 19:32 Ur Barbiturates Screen Presumptive negative 05/31/18 19:32 Ur Phencyclidine Scrn Presumptive negative 05/31/18 19:32 Ur Amphetamines Screen Presumptive negative 05/31/18 19:32 U Benzodiazepines Scrn Presumptive negative 05/31/18 19:32 Urine Cocaine Screen Presumptive negative 05/31/18 19:32 U Marijuana (THC) Screen Presumptive negative 05/31/18 19:32 Drugs of Abuse Note Disclamer 05/31/18 19:32 Plasma/Serum Alcohol < 0.01 % (0-0.07) 05/31/18 17:56 Active Medications - Current Medications Current Medications: Generic Name Dose Route Start Last Admin Trade Name Freq PRN Reason Stop Dose Admin Acetaminophen 650 mg 05/31/18 21:28 Tylenol PO Q4H PRN Pain MILD(1-3)/Fever >100.5/BROOKS Albuterol/Ipratropium 1 ampul 06/01/18 02:00 06/01/18 07:51 Duoneb *Not For Prn Use* IH 1 ampul Q6HRT [facility]KE Administration Aspirin 325 mg 06/01/18 10:00 06/01/18 09:38 Ecotrin PO 325 mg QDAY [facility]KE Administration Sodium Chloride 1,000 mls @ 75 mls/hr 05/31/18 22:00 06/01/18 06:22 Nacl 0.9% 1000 Ml IV 75 mls/hr DIRECT JAKE Administration Insulin Human Regular 0 units 05/31/18 22:00 06/01/18 08:54 Humulin R SUB-Q Not Given ACHS [facility] Protocol Levofloxacin 250 mg 06/01/18 11:00 Levaquin PO Q24HR JAKE Nitroglycerin 0.4 mg 05/31/18 21:44 Nitrostat SL .Q5MIN PRN Chest Pain Ondansetron HCl 4 mg 05/31/18 21:28 Zofran IV Q8H PRN Nausea And Vomiting Sodium Chloride 10 ml 05/31/18 22:00 06/01/18 09:38 Sodium Chloride Flush Syringe 10 Ml IV 10 ml BID JAKE Administration Sodium Chloride 10 ml 05/31/18 21:28 Sodium Chloride Flush Syringe 10 Ml IV PRN PRN LINE FLUSH
[2018-06-01 13:22] LABS: Chol/HDL Ratio 6.37 %
[2018-06-01] MEDS: LEVAQUIN PO SCH (15:01)
[2018-06-01] MEDS ORDERED: PROVENTIL IH PRN (21:52)
[2018-06-02] MEDS: NACL 0.9% 1000 ML 1,000 ML IV SCH (00:11)
[2018-06-02 05:33] LABS: Basophils % (Auto) 0.6 % (0.0-1.8); Eosinophils # (Auto) 0.1 K/mm3 (0.0-0.4); Eosinophils % (Auto) 2.1 % (0.0-4.3); Hematocrit 30.5 % (30.3-42.9); Hemoglobin 9.9 gm/dl (10.1-14.3); Lymphocytes # (Auto) 1.5 K/mm3 (1.2-5.4); Lymphocytes % (Auto) 32.8 % (13.4-35.0); Mean Corpuscular HGB Conc 33 % (30-34); Mean Corpuscular Volume 95 fl (79-97); Monocytes # (Auto) 0.6 K/mm3 (0.0-0.8); Platelet Count 258 K/mm3 (140-440); Red Blood Count 3.23 M/mm3 (3.65-5.03)
[2018-06-02 05:59] LABS: Calcium 8.2 mg/dL (8.4-10.2)
[2018-06-02] MEDS: HumuLIN R SUB-Q SCH ×3 (09:27→22:31)
[2018-06-02] MEDS: SODIUM CHLORIDE FLUSH SYRINGE 10 ML IV SCH ×2 (09:28→22:31)
[2018-06-02] MEDS: ECOTRIN PO SCH (09:28)
[2018-06-02] MEDS: LEVAQUIN PO SCH (09:28)
--- NOTE | 2018-06-02 09:58 | Progress Note ---
Assessment and Plan Impression * Acute on chronic renal failure * Bipolar disorder * HIV disease * Hypertension * Diabetes * Obesity * Urinary tract infection Recommendations * Patient's renal function seems to be improving. She may have had a prerenal component. Continue IV hydration for now * Renal function shows a left kidney to be smaller and a right nonobstructing kidney stone * A urine does show some eosinophils. * It appears the patient does have a history of underlying chronic kidney disease. * Baseline creatinine however is not known. Serum creatinine was 2.7 in April 2018 * Recent rise in creatinine may be due to Bactrim which she was taking at the time of admission. She may have a prerenal component as well * Monitor fluid status and electrolytes closely * Avoid nephrotoxins Subjective Date of service: 06/02/18 Interval history: Patient is comfortable today. Denies any shortness of breath. Still has some nausea. Objective - Vital Signs Vital signs: Vital Signs - 12hr 06/01/18 06/02/18 06/02/18 23:43 00:00 03:30 Temperature 98.1 F 98.3 F Pulse Rate 91 H 78 Respiratory 16 16 Rate Blood Pressure 142/77 148/86 O2 Sat by Pulse 96 98 Oximetry 06/02/18 06/02/18 04:00 08:24 Temperature 97.9 F Pulse Rate 81 68 Respiratory 16 Rate Blood Pressure 189/84 O2 Sat by Pulse 99 Oximetry - General Appearance General appearance: well-developed, well-nourished, appears stated age, obese EENT: PERRL, mucous membranes moist Neck: no JVD, no thyromegaly, no carotid bruit, supple Respiratory: Present: Clear to Ascultation Cardiology: regular, normal heart rate, S1S2, no murmurs Gastrointestinal: normal, normoactive bowel sounds Integumentary: no rash, other (no edema) - Lab 06/02/18 04:59 06/02/18 04:59 Most recent lab results Calcium 8.2 mg/dL (8.4-10.2) L 06/02/18 04:59 Magnesium 1.80 mg/dL (1.7-2.3) 06/02/18 04:59 Medications & Allergies - Medications Allergies/Adverse Reactions: Allergies No Known Allergies Allergy (Verified 05/05/18 14:30) Home Medications: Home Medications Medication Instructions Recorded Confirmed Last Taken Type Sulfamethoxazole/Trimethoprim 1 each PO BID #12 tablet 05/01/18 Unknown Rx [Bactrim DS TAB] Sulfamethoxazole/Trimethoprim 1 each PO ONCE #12 tablet 05/01/18 Unknown Rx [Bactrim DS TAB] traMADol [Ultram 50 MG tab] 50 mg PO Q6HR PRN #11 tablet 05/01/18 Unknown Rx Active Medications: Generic Name Dose Route Start Last Admin Trade Name Freq PRN Reason Stop Dose Admin Acetaminophen 650 mg 05/31/18 21:28 Tylenol PO Q4H PRN Pain MILD(1-3)/Fever >100.5/BROOKS Albuterol 2.5 mg 06/01/18 21:52 Proventil IH Q4HRT PRN Shortness Of Breath Aspirin 325 mg 06/01/18 10:00 06/02/18 09:28 Ecotrin PO 325 mg QDAY [facility] Administration Sodium Chloride 1,000 mls @ 75 mls/hr 05/31/18 22:00 06/02/18 00:11 Nacl 0.9% 1000 Ml IV 75 mls/hr DIRECT JAKE Administration Insulin Human Regular 0 units 05/31/18 22:00 06/02/18 09:27 Humulin R SUB-Q Not Given ACHS [facility] Protocol Levofloxacin 250 mg 06/01/18 11:00 06/02/18 09:28 Levaquin PO 250 mg Q24HR [facility] Administration Nitroglycerin 0.4 mg 05/31/18 21:44 Nitrostat SL .Q5MIN PRN Chest Pain Ondansetron HCl 4 mg 05/31/18 21:28 Zofran IV Q8H PRN Nausea And Vomiting Sodium Chloride 10 ml 05/31/18 22:00 06/02/18 09:28 Sodium Chloride Flush Syringe 10 Ml IV 10 ml BID [facility]KE Administration Sodium Chloride 10 ml 05/31/18 21:28 Sodium Chloride Flush Syringe 10 Ml IV PRN PRN LINE FLUSH
--- NOTE | 2018-06-02 12:33 | Consultation ---
History of Present Illness Consult date: 06/02/18 Requesting physician: MICHELLE SHEN Consult reason: bradycardia History of present illness: The pt is a 52-year-old female with PMHx of HIV, DM type 2, bipolar, hypertension, renal insufficiency, schizophrenia and morbid obesity. She c/o weakness. She is a rather poor historian and does not provide any additional d etails. Per the chart, she was brought to the hospital after falling in front of the hospital ([facility]) today. Medical record reviewed. Patient was here May 05 with a similar presentation that includes psychosis and complaint of falls. She was placed on a 1013 and subsequently transferred to [facility]. Since then patient has been downgraded to the [facility] [place]. Patient was transported back to the ER via wheelchair from the [facility] after being found on the lobby floor stating that she fell. Pt does admit that she has "fell out a heap of times" over the past several months. It is unclear whether these were syncopal events. Pt was found to have inter mittent wenckebach AV block on telemetry and thus cardiology has been consulted. Past History Past Medical History: diabetes, HIV/AIDS, hypertension, hyperlipidemia Past Surgical History: No surgical history Medications and Allergies Allergies Allergy/AdvReac Type Severity Reaction Status Date / Time No Known Allergies Allergy Verified 05/05/18 14:30 Home Medications Medication Instructions Recorded Confirmed Last Taken Type Sulfamethoxazole/Trimethoprim 1 each PO BID #12 tablet 05/01/18 Unknown Rx [Bactrim DS TAB] Sulfamethoxazole/Trimethoprim 1 each PO ONCE #12 tablet 05/01/18 Unknown Rx [Bactrim DS TAB] traMADol [Ultram 50 MG tab] 50 mg PO Q6HR PRN #11 tablet 05/01/18 Unknown Rx Active Meds: Active Medications Acetaminophen (Tylenol) 650 mg PO Q4H PRN PRN Reason: Pain MILD(1-3)/Fever >100.5/BROOKS Albuterol (Proventil) 2.5 mg IH Q4HRT PRN PRN Reason: Shortness Of Breath Aspirin (Ecotrin) 325 mg PO QDAY [facility] Last Admin: 06/02/18 09:28 Dose: 325 mg Documented by: Sodium Chloride (Nacl 0.9% 1000 Ml) 1,000 mls @ 75 mls/hr IV DIRECT [facility] Last Admin: 06/02/18 00:11 Dose: 75 mls/hr Documented by: Insulin Human Regular (Humulin R) 0 units SUB-Q ACHS [facility]; Protocol Last Admin: 06/02/18 09:27 Dose: Not Given Documented by: Levofloxacin (Levaquin) 250 mg PO Q24HR [facility] Last Admin: 06/02/18 09:28 Dose: 250 mg Documented by: Nitroglycerin (Nitrostat) 0.4 mg SL .Q5MIN PRN PRN Reason: Chest Pain Ondansetron HCl (Zofran) 4 mg IV Q8H PRN PRN Reason: Nausea And Vomiting Sodium Chloride (Sodium Chloride Flush Syringe 10 Ml) 10 ml IV BID [facility] Last Admin: 06/02/18 09:28 Dose: 10 ml Documented by: Sodium Chloride (Sodium Chloride Flush Syringe 10 Ml) 10 ml IV PRN PRN PRN Reason: LINE FLUSH Review of Systems All systems: negative Constitutional: weakness (generalized) Physical Examination Vital Signs Temp Pulse Resp BP Pulse Ox 98.9 F 101 H 18 145/84 98 05/31/18 17:46 05/31/18 17:46 05/31/18 17:46 05/31/18 17:46 05/31/18 17:46 General appearance: no acute distress HEENT: Positive: PERRL, Normocephaly, Mucus Membranes Moist Neck: Positive: neck supple, trachea midline Cardiac: Positive: Reg Rate and Rhythm Lungs: Positive: Normal Exam Neuro: Positive: Grossly Intact, Other (sleepy) Abdomen: Negative: Tender Skin: Negative: Rash Musculoskeletal: No Pain Extremities: Absent: edema Results 06/02/18 04:59 06/02/18 04:59 Lipids 06/01/18 Range/Units 11:51 Triglycerides 150 H (2-149) mg/dL Cholesterol 204 H (50-199) mg/dL HDL Cholesterol 32 L (40-59) mg/dL Cholesterol/HDL Ratio 6.37 % CBC 06/02/18 Range/Units 04:59 WBC 4.7 (4.5-11.0) K/mm3 RBC 3.23 L (3.65-5.03) M/mm3 Hgb 9.9 L (10.1-14.3) gm/dl Hct 30.5 (30.3-42.9) % Plt Count 258 (140-440) K/mm3 Lymph # 1.5 (1.2-5.4) K/mm3 Long # 0.6 (0.0-0.8) K/mm3 Eos # 0.1 (0.0-0.4) K/mm3 Baso # 0.0 (0.0-0.1) K/mm3 Comprehensive Metabolic Panel 06/01/18 06/02/18 Range/Units 09:51 04:59 Sodium 140 142 (137-145) mmol/L Potassium 4.6 (3.6-5.0) mmol/L Chloride 107.1 H (98-107) mmol/L Carbon Dioxide 22 (22-30) mmol/L BUN 33 H (7-17) mg/dL Creatinine 3.0 H 2.9 H (0.7-1.2) mg/dL Glucose 90 (65-100) mg/dL Calcium 8.2 L (8.4-10.2) mg/dL - Imaging and Cardiology Echo: pending EKG: report reviewed, image reviewed EKG interpretations - Telemetry EKG Rhythm: Sinus Rhythm - EKG Sinus rhythms and dysrhythmias: sinus rhythm Assessment and Plan Pt known to have frequent falls. Pt does admit that she has "fell out a heap of times" over the past several months. It is unclear whether these were syncopal events. Pt was found to have intermittent wenckebach AV block on telemetry and thus cardiology has been consulted. Unable to discern if pt's falls are r/t AV block. Pt noted to be sleeping deeply on evaluation - ? sleep apnea. Will obtain echo and check thyroid. Avoid AV jacklyn blocking agents. ECG shows NSR with normal QT. Recommend OP sleep study for possible TAMMY and can consider 30 day event monitor as OP. The patient has been seen in conjunction with Dr. Dawn who agrees with the assessment and plan of care. - Patient Problems (1) Wenckebach second degree AV block Current Visit: Yes Status: Acute (2) Frequent falls Current Visit: Yes Status: Acute (3) Generalized weakness Current Visit: Yes Status: Acute (4) HTN (hypertension) Current Visit: Yes Status: Chronic (5) Diabetes Current Visit: Yes Status: Chronic (6) Psychiatric disorder Current Visit: Yes Status: Acute (7) UTI (urinary tract infection) Current Visit: Yes Status: Acute (8) Acute on chronic renal insufficiency Current Visit: Yes Status: Acute (9) History of HIV infection Current Visit: Yes Status: Chronic
--- NOTE | 2018-06-02 13:16 | Progress Note ---
Assessment and Plan Assessment and plan: Virgilio second-degree AV block. Check thyroid function and echocardiogram. Cardiology consulted and following. Can consider 30 day event monitor as OP. Frequent falls. Etiology likely secondary to above Acute on chronic kidney disease. Nephrology following. Renal ultrasound to assess kidney size and echogenicity. Baseline creatinine however is not known. As noted above her serum creatinine was 2.7 in April 2018 UTI. IV antibiotics and follow-up blood and urine cultures. HIV disease. Consider ID consultation. Hypertension. Resume antihypertensive medications. Diabetes mellitus type 2. Continue Accu-Cheks and sliding scale regular insulin Schizophrenia. Psychiatric consultation. Morbid obesity. History Interval history: Patient with episode of AV block captured on telemetry monitoring. Hospitalist Physical - Constitutional Vitals: Temp Pulse Resp BP Pulse Ox 97.9 F 68 16 189/84 99 06/02/18 08:24 06/02/18 08:24 06/02/18 08:24 06/02/18 08:24 06/02/18 08:24 General appearance: Present: no acute distress - EENT Eyes: Present: PERRL, EOM intact ENT: hearing intact, clear oral mucosa, dentition normal - Neck Neck: Present: supple, normal ROM - Respiratory Respiratory effort: normal Respiratory: bilateral: CTA - Cardiovascular Rhythm: regular Heart Sounds: Present: S1 & S2. Absent: gallop, rub - Extremities Extremities: no ischemia, No edema, Full ROM - Abdominal General gastrointestinal: soft, non-tender, non-distended, normal bowel sounds - Integumentary Integumentary: Present: clear, warm, dry - Neurologic Neurologic: CNII-XII intact, moves all extremities Results - Labs CBC & Chem 7: 06/02/18 04:59 06/02/18 04:59 Labs: Laboratory Last Values WBC 4.7 K/mm3 (4.5-11.0) 06/02/18 04:59 RBC 3.23 M/mm3 (3.65-5.03) L 06/02/18 04:59 Hgb 9.9 gm/dl (10.1-14.3) L 06/02/18 04:59 Hct 30.5 % (30.3-42.9) 06/02/18 04:59 MCV 95 fl (79-97) 06/02/18 04:59 MCH 31 pg (28-32) 06/02/18 04:59 MCHC 33 % (30-34) 06/02/18 04:59 RDW 17.0 % (13.2-15.2) H 06/02/18 04:59 Plt Count 258 K/mm3 (140-440) 06/02/18 04:59 Lymph % (Auto) 32.8 % (13.4-35.0) 06/02/18 04:59 [place] % (Auto) 12.0 % (0.0-7.3) H 06/02/18 04:59 Eos % (Auto) 2.1 % (0.0-4.3) 06/02/18 04:59 Baso % (Auto) 0.6 % (0.0-1.8) 06/02/18 04:59 Lymph # 1.5 K/mm3 (1.2-5.4) 06/02/18 04:59 [place] # 0.6 K/mm3 (0.0-0.8) 06/02/18 04:59 Eos # 0.1 K/mm3 (0.0-0.4) 06/02/18 04:59 Baso # 0.0 K/mm3 (0.0-0.1) 06/02/18 04:59 Seg Neutrophils % 52.5 % (40.0-70.0) 06/02/18 04:59 Seg Neutrophils # 2.5 K/mm3 (1.8-7.7) 06/02/18 04:59 Sodium 142 mmol/L (137-145) 06/02/18 04:59 Potassium 4.6 mmol/L (3.6-5.0) 06/02/18 04:59 Chloride 107.1 mmol/L (98-107) H 06/02/18 04:59 Carbon Dioxide 22 mmol/L (22-30) 06/02/18 04:59 Anion Gap 18 mmol/L 06/02/18 04:59 BUN 33 mg/dL (7-17) H 06/02/18 04:59 Creatinine 2.9 mg/dL (0.7-1.2) H 06/02/18 04:59 Estimated GFR 20 ml/min 06/02/18 04:59 BUN/Creatinine Ratio 11 % 06/02/18 04:59 Glucose 90 mg/dL (65-100) 06/02/18 04:59 POC Glucose 95 (70-105) 06/02/18 12:11 Calcium 8.2 mg/dL (8.4-10.2) L 06/02/18 04:59 Magnesium 1.80 mg/dL (1.7-2.3) 06/02/18 04:59 Total Creatine Kinase 256 units/L (30-135) H 05/31/18 17:56 CK-MB (CK-2) 7.0 ng/mL (0.0-4.0) H 05/31/18 17:56 CK-MB (CK-2) Rel Index 2.7 (0-4) 05/31/18 17:56 Troponin T 0.030 ng/mL (0.00-0.029) H D 06/01/18 11:51 Triglycerides 150 mg/dL (2-149) H 06/01/18 11:51 Cholesterol 204 mg/dL (50-199) H 06/01/18 11:51 LDL Cholesterol Direct 167 mg/dL (50-130) H 06/01/18 11:51 HDL Cholesterol 32 mg/dL (40-59) L 06/01/18 11:51 Cholesterol/HDL Ratio 6.37 % 06/01/18 11:51 Urine Color Yellow (Yellow) 05/31/18 19:32 Urine Turbidity Cloudy (Clear) 05/31/18 19:32 Urine pH 6.0 (5.0-7.0) 05/31/18 19:32 Ur Specific [place] 1.009 (1.003-1.030) 05/31/18 19:32 Urine Protein 100 mg/dl mg/dL (Negative) 05/31/18 19:32 Urine Glucose (UA) Neg mg/dL (Negative) 05/31/18 19:32 Urine Ketones Neg mg/dL (Negative) 05/31/18 19:32 Urine Blood Sm (Negative) 05/31/18 19:32 Urine Nitrite Neg (Negative) 05/31/18 19:32 Urine Bilirubin Neg (Negative) 05/31/18 19:32 Urine Urobilinogen < 2.0 mg/dL (<2.0) 05/31/18 19:32 Ur Leukocyte Esterase Lg (Negative) 05/31/18 19:32 Urine WBC (Auto) > 182.0 /HPF (0.0-6.0) H 05/31/18 19:32 Urine RBC (Auto) 83.0 /HPF (0.0-6.0) 05/31/18 19:32 U Epithel Cells (Auto) 4.0 /HPF (0-13.0) 05/31/18 19:32 Urine Bacteria (Auto) 1+ /HPF (Negative) 05/31/18 19:32 Urine WBC Clumps 3+ /HPF 05/31/18 19:32 Urine Yeast (Budding) 2+ /HPF 05/31/18 19:32 Urine Eosinophils >5% (None Seen) 06/01/18 14:30 Urine Opiates Screen Presumptive negative 05/31/18 19:32 Urine Methadone Screen Presumptive negative 05/31/18 19:32 Ur Barbiturates Screen Presumptive negative 05/31/18 19:32 Ur Phencyclidine Scrn Presumptive negative 05/31/18 19:32 Ur Amphetamines Screen Presumptive negative 05/31/18 19:32 U Benzodiazepines Scrn Presumptive negative 05/31/18 19:32 Urine Cocaine Screen Presumptive negative 05/31/18 19:32 U Marijuana (THC) Screen Presumptive negative 05/31/18 19:32 Drugs of Abuse Note Disclamer 05/31/18 19:32 Plasma/Serum Alcohol < 0.01 % (0-0.07) 05/31/18 17:56 Active Medications - Current Medications Current Medications: Generic Name Dose Route Start Last Admin Trade Name Freq PRN Reason Stop Dose Admin Acetaminophen 650 mg 05/31/18 21:28 Tylenol PO Q4H PRN Pain MILD(1-3)/Fever >100.5/BROOKS Albuterol 2.5 mg 06/01/18 21:52 Proventil IH Q4HRT PRN Shortness Of Breath Aspirin 325 mg 06/01/18 10:00 06/02/18 09:28 Ecotrin PO 325 mg QDAY JAKE Administration Sodium Chloride 1,000 mls @ 75 mls/hr 05/31/18 22:00 06/02/18 00:11 Nacl 0.9% 1000 Ml IV 75 mls/hr DIRECT JAKE Administration Insulin Human Regular 0 units 05/31/18 22:00 06/02/18 09:27 Humulin R SUB-Q Not Given ACHS JAKE Protocol Levofloxacin 250 mg 06/01/18 11:00 06/02/18 09:28 Levaquin PO 250 mg Q24HR JAKE Administration Nitroglycerin 0.4 mg 05/31/18 21:44 Nitrostat SL .Q5MIN PRN Chest Pain Ondansetron HCl 4 mg 05/31/18 21:28 Zofran IV Q8H PRN Nausea And Vomiting Sodium Chloride 10 ml 05/31/18 22:00 06/02/18 09:28 Sodium Chloride Flush Syringe 10 Ml IV 10 ml BID JAKE Administration Sodium Chloride 10 ml 05/31/18 21:28 Sodium Chloride Flush Syringe 10 Ml IV PRN PRN LINE FLUSH
--- NOTE | 2018-06-02 14:42 | Ultrasound Report ---
Renal sonogram: History: JOSE. Findings: Right kidney 12.9 x 5.6 x 5.5 cm. Cortical thickness 1.3 cm. Single nonobstructing calculus upper pole right kidney measures 2.3 x 0.2 cm. Single nonobstructing calculus upper lateral right kidney measures 0.2 x 0.2 cm. Left kidney 9.8 x 6.3 x 6.1 cm. Cortical thickness to centimeter. Bladder not optimally visualized due to patient body habitus. Impression: Nonobstructing calculi right kidney.
--- NOTE | 2018-06-02 16:50 | Consultation ---
History of Present Illness - Reason for Consult Consult date: 06/02/18 Reason for consult: Initial Psychiatric Evaluation - History of Present Psychiatric Illness Patient is a 52 female who presents to the emergency room with a past medical history HIV, diabetes, hypertension, and renal insufficiency. Patient has a PPHx of schizophrenia and bipolar. She presented to the hospital with pain all over after fall. Patient is a very poor historian. Patient was wheeled into the Department and states she can't walk due to generalized pain.Today the patient is calm and cooperative during the assessment. She presents with impoverished thought content. She endorses intermittent auditory hallucinations. She reports appropriate energy, sleep fluctuations, and good appetite. She denies SI/HI, VH's, and delusions. Patient is unable to recall the last time she was compliant with psychiatric medication. Current Psychiatric Medications: " I don't know." Past Psychiatric History: Schizophrenia ( " I don't know") ; " I don't know"- previous inpatient psychiatric hospitalization; no outpatient psychiatrist; no previous suicide attempt. Past Medication Trials: " I don't know." History of Alcohol/ Drug Abuse: Patient denies drug/alcohol abuse. History of Trauma/Abuse: Patient denies sexual, physical, and mental abuse. Social History: 10th grade- highest level of education; monthly income SSI- " I don't know"- amount ; 1 daughter- 25 years old; single ; poor support system; no pending legal issues. Family History of Psychiatric Illness/Substance Abuse: Patient denies. Medications and Allergies Allergies Allergy/AdvReac Type Severity Reaction Status Date / Time No Known Allergies Allergy Verified 05/05/18 14:30 Home Medications Medication Instructions Recorded Confirmed Last Taken Type Atovaquone [Mepron] 750 mg PO DAILY 06/02/18 06/02/18 Unknown History Citalopram Hydrobromide 20 mg PO DAILY 06/02/18 06/02/18 Unknown History [Citalopram HBr] Dolutegravir [Tivicay] 50 mg PO DAILY 06/02/18 06/02/18 Unknown History Lisinopril [Prinivil] 5 mg PO DAILY 06/02/18 06/02/18 Unknown History Montelukast Sodium 10 mg PO DAILY 06/02/18 06/02/18 Unknown History Quetiapine Fumarate [QUEtiapine 400 mg PO BID 06/02/18 06/02/18 Unknown History Fumarate] Rilpivirine (Nf) [Edurant (Nf)] 25 mg PO QDAY 06/02/18 06/02/18 Unknown History Rosuvastatin (Nf) [Crestor] 5 mg PO QHS 06/02/18 06/02/18 Unknown History hydrALAZINE [Apresoline] 25 mg PO Q8HR 06/02/18 06/02/18 Unknown History lamiVUDine [Lamivudine] 150 mg PO DAILY 06/02/18 06/02/18 Unknown History Active Meds: Active Medications Acetaminophen (Tylenol) 650 mg PO Q4H PRN PRN Reason: Pain MILD(1-3)/Fever >100.5/BROOKS Albuterol (Proventil) 2.5 mg IH Q4HRT PRN PRN Reason: Shortness Of Breath Aspirin (Ecotrin) 325 mg PO QDAY [facility] Last Admin: 06/02/18 09:28 Dose: 325 mg Documented by: Sodium Chloride (Nacl 0.9% 1000 Ml) 1,000 mls @ 75 mls/hr IV DIRECT [facility] Last Admin: 06/02/18 00:11 Dose: 75 mls/hr Documented by: Insulin Human Regular (Humulin R) 0 units SUB-Q ACHS [facility]; Protocol Last Admin: 06/02/18 09:27 Dose: Not Given Documented by: Levofloxacin (Levaquin) 250 mg PO Q24HR [facility] Last Admin: 06/02/18 09:28 Dose: 250 mg Documented by: Nitroglycerin (Nitrostat) 0.4 mg SL .Q5MIN PRN PRN Reason: Chest Pain Ondansetron HCl (Zofran) 4 mg IV Q8H PRN PRN Reason: Nausea And Vomiting Sodium Chloride (Sodium Chloride Flush Syringe 10 Ml) 10 ml IV BID [facility] Last Admin: 06/02/18 09:28 Dose: 10 ml Documented by: Sodium Chloride (Sodium Chloride Flush Syringe 10 Ml) 10 ml IV PRN PRN PRN Reason: LINE FLUSH Mental Status Exam - Vital signs Last Vital Signs Temp 97.9 F 06/02/18 08:24 Pulse 68 06/02/18 08:24 Resp 16 06/02/18 08:24 BP 189/84 06/02/18 08:24 Pulse Ox 99 06/02/18 08:24 - Exam Narrative exam: Mental Status Exam Appearance: calm Behavior: regular eye contact Speech: regular rate and tone Mood: " I feel alright" Affect: congruent to mood Thought Process: organized; impoverished Thought Content: no gestures of SI/HI's, VH's, and delusions; intermittent AH's - currently denies Motor Activity: ambulatory Cognition: A/O x 3 Insight: poor Judgment: fair Results Result Diagrams: 06/02/18 04:59 06/02/18 04:59 Abnormal lab results 06/02/18 06/02/18 Range/Units 04:59 04:59 RBC 3.23 L (3.65-5.03) M/mm3 Hgb 9.9 L (10.1-14.3) gm/dl RDW 17.0 H (13.2-15.2) % [place] % (Auto) 12.0 H (0.0-7.3) % Chloride 107.1 H (98-107) mmol/L BUN 33 H (7-17) mg/dL Creatinine 2.9 H (0.7-1.2) mg/dL Calcium 8.2 L (8.4-10.2) mg/dL All other labs normal. Assessment and Plan Assessment and plan: Impression: PPHx Schizophrenia. Psychosis Unspecified. Today the patient is calm and cooperative during the assessment. She denies SI/HI's, A/VH's, and delusions. Thought content is impoverished. UDS negative. Recommendation/Plan: 1. Will reassess in 24 hour. 2. Attempt to gain collateral to determine proper disposition. 3. Start Risperdal 0.5 mg po QHS psychosis. Discussed metabolic side effects. Disposition: Will reassess in 24 hours. Medication management. Staffed with Dr. Melanie Moreno.
[2018-06-02] MEDS: RisperDAL PO SCH (22:30)
[2018-06-03 05:53] LABS: Calcium 8.5 mg/dL (8.4-10.2)
[2018-06-03] MEDS: HumuLIN R SUB-Q SCH ×4 (08:00→21:35)
[2018-06-03] MEDS: ECOTRIN PO SCH (10:09)
[2018-06-03] MEDS: LEVAQUIN PO SCH (10:09)
[2018-06-03] MEDS: SODIUM CHLORIDE FLUSH SYRINGE 10 ML IV SCH ×2 (10:11→21:33)
--- NOTE | 2018-06-03 11:08 | Progress Note ---
Assessment and Plan Echo reviewed - EF 55-60%, mild LVH, no significant valvular abnormalities. Thyroid profile WNL. No acute events noted on tele overnight although pt is not wearing tele box this morning. Cont to avoid AV jacklyn blocking agents. ECG shows NSR with normal QT. Recommend OP sleep study for possible TAMMY and can consider 30 day event monitor as OP. Currently stable cardiac status. Nothing further to add from cardiac perspective at this time. Will sign off. Recommend follow up in our office with Dr. Dawn within 1-2 weeks of hospital discharge ([phone]). The patient has been seen in conjunction with Dr. Dawn who agrees with the assessment and plan of care. - Patient Problems (1) Wenckebach second degree AV block Current Visit: Yes Status: Acute (2) Frequent falls Current Visit: Yes Status: Acute (3) Generalized weakness Current Visit: Yes Status: Acute (4) HTN (hypertension) Current Visit: Yes Status: Chronic (5) Diabetes Current Visit: Yes Status: Chronic (6) Psychiatric disorder Current Visit: Yes Status: Acute (7) UTI (urinary tract infection) Current Visit: Yes Status: Acute (8) Acute on chronic renal insufficiency Current Visit: Yes Status: Acute (9) History of HIV infection Current Visit: Yes Status: Chronic Subjective Date of service: 06/03/18 Principal diagnosis: wenckebach Interval history: pt resting in bed, no current cardiac complaints. Tele reviewed - no acute events noted on tele overnight although pt is not wearing tele box this morning. Objective Vital Signs Temp Pulse Resp BP Pulse Ox 06/03/18 04:09 97.7 F 74 12 140/66 98 06/02/18 23:14 97.8 F 74 16 156/92 94 06/02/18 21:25 18 97 06/02/18 19:22 72 06/02/18 19:18 98.2 F 71 16 141/80 100 06/02/18 17:04 98.6 F 76 16 156/70 99 - Physical Examination General: No Apparent Distress HEENT: Positive: PERRL, Normocephaly, Mucus Membranes Moist Neck: Positive: neck supple, trachea midline Cardiac: Positive: Reg Rate and Rhythm, S1/S2 Lungs: Positive: clear to auscultation Neuro: Positive: Grossly Intact, Other (sleepy) Abdomen: Negative: Tender Skin: Negative: Rash Musculoskeletal: No Pain Extremities: Absent: edema - Labs and Meds Comprehensive Metabolic Panel 06/03/18 Range/Units 05:08 Sodium 139 (137-145) mmol/L Potassium 4.7 (3.6-5.0) mmol/L Chloride 107.7 H (98-107) mmol/L Carbon Dioxide 21 L (22-30) mmol/L BUN 33 H (7-17) mg/dL Creatinine 3.0 H (0.7-1.2) mg/dL Glucose 93 (65-100) mg/dL Calcium 8.5 (8.4-10.2) mg/dL - Imaging and Cardiology EKG: report reviewed, image reviewed Echo: pending - EKG Sinus rhythms and dysrhythmias: sinus rhythm
--- NOTE | 2018-06-03 13:05 | Progress Note ---
Assessment and Plan Assessment and plan: Virgilio second-degree AV block. Check thyroid function and echocardiogram. Cardiology consulted and following. Consider 30 day event monitor as OP. Frequent falls. ?Etiology likely secondary to above Acute on chronic kidney disease. Nephrology following. Renal ultrasound reveals no obstruction. Baseline creatinine however is not known. As noted above her serum creatinine was 2.7 in April 2018 UTI. IV antibiotics and follow-up blood and urine cultures. HIV disease. Consider ID consultation. Hypertension. Resume antihypertensive medications. Diabetes mellitus type 2. Continue Accu-Cheks and sliding scale regular insulin Schizophrenia/psychosis. Psychiatry following Morbid obesity. History Interval history: Patient no issues overnight Hospitalist Physical - Constitutional Vitals: Temp Pulse Resp BP Pulse Ox 97.7 F 74 12 140/66 98 06/03/18 04:09 06/03/18 04:09 06/03/18 04:09 06/03/18 04:09 06/03/18 04:09 General appearance: Present: no acute distress - EENT Eyes: Present: PERRL, EOM intact ENT: hearing intact, clear oral mucosa, dentition normal - Neck Neck: Present: supple, normal ROM - Respiratory Respiratory effort: normal Respiratory: bilateral: CTA - Cardiovascular Rhythm: regular Heart Sounds: Present: S1 & S2. Absent: gallop, rub - Extremities Extremities: no ischemia, No edema, Full ROM - Abdominal General gastrointestinal: soft, non-tender, non-distended, normal bowel sounds - Integumentary Integumentary: Present: clear, warm, dry - Neurologic Neurologic: CNII-XII intact, moves all extremities Results - Labs CBC & Chem 7: 06/02/18 04:59 06/03/18 05:08 Labs: Laboratory Last Values WBC 4.7 K/mm3 (4.5-11.0) 06/02/18 04:59 RBC 3.23 M/mm3 (3.65-5.03) L 06/02/18 04:59 Hgb 9.9 gm/dl (10.1-14.3) L 06/02/18 04:59 Hct 30.5 % (30.3-42.9) 06/02/18 04:59 MCV 95 fl (79-97) 06/02/18 04:59 MCH 31 pg (28-32) 06/02/18 04:59 MCHC 33 % (30-34) 06/02/18 04:59 RDW 17.0 % (13.2-15.2) H 06/02/18 04:59 Plt Count 258 K/mm3 (140-440) 06/02/18 04:59 Lymph % (Auto) 32.8 % (13.4-35.0) 06/02/18 04:59 [place] % (Auto) 12.0 % (0.0-7.3) H 06/02/18 04:59 Eos % (Auto) 2.1 % (0.0-4.3) 06/02/18 04:59 Baso % (Auto) 0.6 % (0.0-1.8) 06/02/18 04:59 Lymph # 1.5 K/mm3 (1.2-5.4) 06/02/18 04:59 [place] # 0.6 K/mm3 (0.0-0.8) 06/02/18 04:59 Eos # 0.1 K/mm3 (0.0-0.4) 06/02/18 04:59 Baso # 0.0 K/mm3 (0.0-0.1) 06/02/18 04:59 Seg Neutrophils % 52.5 % (40.0-70.0) 06/02/18 04:59 Seg Neutrophils # 2.5 K/mm3 (1.8-7.7) 06/02/18 04:59 Sodium 139 mmol/L (137-145) 06/03/18 05:08 Potassium 4.7 mmol/L (3.6-5.0) 06/03/18 05:08 Chloride 107.7 mmol/L (98-107) H 06/03/18 05:08 Carbon Dioxide 21 mmol/L (22-30) L 06/03/18 05:08 Anion Gap 15 mmol/L 06/03/18 05:08 BUN 33 mg/dL (7-17) H 06/03/18 05:08 Creatinine 3.0 mg/dL (0.7-1.2) H 06/03/18 05:08 Estimated GFR 20 ml/min 06/03/18 05:08 BUN/Creatinine Ratio 11 % 06/03/18 05:08 Glucose 93 mg/dL (65-100) 06/03/18 05:08 POC Glucose 83 (70-105) 06/03/18 07:51 Calcium 8.5 mg/dL (8.4-10.2) 06/03/18 05:08 Magnesium 1.80 mg/dL (1.7-2.3) 06/02/18 04:59 Total Creatine Kinase 256 units/L (30-135) H 05/31/18 17:56 CK-MB (CK-2) 7.0 ng/mL (0.0-4.0) H 05/31/18 17:56 CK-MB (CK-2) Rel Index 2.7 (0-4) 05/31/18 17:56 Troponin T 0.030 ng/mL (0.00-0.029) H D 06/01/18 11:51 Triglycerides 150 mg/dL (2-149) H 06/01/18 11:51 Cholesterol 204 mg/dL (50-199) H 06/01/18 11:51 LDL Cholesterol Direct 167 mg/dL (50-130) H 06/01/18 11:51 HDL Cholesterol 32 mg/dL (40-59) L 06/01/18 11:51 Cholesterol/HDL Ratio 6.37 % 06/01/18 11:51 TSH 1.750 mlU/mL (0.270-4.200) 06/02/18 13:29 Free T4 1.03 ng/dL (0.76-1.46) 06/02/18 13:29 Urine Color Yellow (Yellow) 05/31/18 19:32 Urine Turbidity Cloudy (Clear) 05/31/18 19:32 Urine pH 6.0 (5.0-7.0) 05/31/18 19:32 Ur Specific [place] 1.009 (1.003-1.030) 05/31/18 19:32 Urine Protein 100 mg/dl mg/dL (Negative) 05/31/18 19:32 Urine Glucose (UA) Neg mg/dL (Negative) 05/31/18 19:32 Urine Ketones Neg mg/dL (Negative) 05/31/18 19:32 Urine Blood Sm (Negative) 05/31/18 19:32 Urine Nitrite Neg (Negative) 05/31/18 19:32 Urine Bilirubin Neg (Negative) 05/31/18 19:32 Urine Urobilinogen < 2.0 mg/dL (<2.0) 05/31/18 19:32 Ur Leukocyte Esterase Lg (Negative) 05/31/18 19:32 Urine WBC (Auto) > 182.0 /HPF (0.0-6.0) H 05/31/18 19:32 Urine RBC (Auto) 83.0 /HPF (0.0-6.0) 05/31/18 19:32 U Epithel Cells (Auto) 4.0 /HPF (0-13.0) 05/31/18 19:32 Urine Bacteria (Auto) 1+ /HPF (Negative) 05/31/18 19:32 Urine WBC Clumps 3+ /HPF 05/31/18 19:32 Urine Yeast (Budding) 2+ /HPF 05/31/18 19:32 Urine Eosinophils >5% (None Seen) 06/01/18 14:30 Urine Opiates Screen Presumptive negative 05/31/18 19:32 Urine Methadone Screen Presumptive negative 05/31/18 19:32 Ur Barbiturates Screen Presumptive negative 05/31/18 19:32 Ur Phencyclidine Scrn Presumptive negative 05/31/18 19:32 Ur Amphetamines Screen Presumptive negative 05/31/18 19:32 U Benzodiazepines Scrn Presumptive negative 05/31/18 19:32 Urine Cocaine Screen Presumptive negative 05/31/18 19:32 U Marijuana (THC) Screen Presumptive negative 05/31/18 19:32 Drugs of Abuse Note Disclamer 05/31/18 19:32 Plasma/Serum Alcohol < 0.01 % (0-0.07) 05/31/18 17:56 Active Medications - Current Medications Current Medications: Generic Name Dose Route Start Last Admin Trade Name Freq PRN Reason Stop Dose Admin Acetaminophen 650 mg 05/31/18 21:28 Tylenol PO Q4H PRN Pain MILD(1-3)/Fever >100.5/BROOKS Albuterol 2.5 mg 06/01/18 21:52 Proventil IH Q4HRT PRN Shortness Of Breath Aspirin 325 mg 06/01/18 10:00 06/03/18 10:09 Ecotrin PO 325 mg QDAY JAKE Administration Sodium Chloride 1,000 mls @ 75 mls/hr 05/31/18 22:00 06/02/18 00:11 Nacl 0.9% 1000 Ml IV 75 mls/hr DIRECT JAKE Administration Insulin Human Regular 0 units 04/02/19 22:00 06/02/18 22:31 Humulin R SUB-Q Not Given ACHS [facility] Protocol Levofloxacin 250 mg 06/01/18 11:00 06/03/18 10:09 Levaquin PO 250 mg Q24HR JAKE Administration Nitroglycerin 0.4 mg 05/31/18 21:44 Nitrostat SL .Q5MIN PRN Chest Pain Ondansetron HCl 4 mg 05/31/18 21:28 Zofran IV Q8H PRN Nausea And Vomiting Risperidone 0.5 mg 06/02/18 22:00 06/02/18 22:30 Risperdal PO 0.5 mg QHS JAKE Administration Sodium Chloride 10 ml 05/31/18 22:00 06/03/18 10:11 Sodium Chloride Flush Syringe 10 Ml IV 10 ml BID JAKE Administration Sodium Chloride 10 ml 05/31/18 21:28 Sodium Chloride Flush Syringe 10 Ml IV PRN PRN LINE FLUSH
--- NOTE | 2018-06-03 15:19 | Progress Note ---
Assessment and Plan Impression * Acute on chronic renal failure * Bipolar disorder * HIV disease * Hypertension * Diabetes * Obesity * Urinary tract infection Recommendations * Her serum creatinine seems to be leveling off. Continue IV hydration for now * Renal function shows a left kidney to be smaller and a right nonobstructing kidney stone * Her urine does show some eosinophils. If renal function deteriorates, may need to give her a trial of steroids * It appears the patient does have a history of underlying chronic kidney disease. * Baseline creatinine however is not known. Serum creatinine was 2.7 in April 2018 * Recent rise in creatinine may be due to Bactrim which she was taking at the time of admission. She may have a prerenal component as well * Monitor fluid status and electrolytes closely * Avoid nephrotoxins Subjective Date of service: 06/03/18 Principal diagnosis: [email or web address] Interval history: Patient is comfortable today. Denies any shortness of breath. No nausea or vomiting. Objective - Vital Signs Vital signs: Vital Signs - 12hr 06/03/18 06/03/18 06/03/18 04:09 07:48 12:42 Temperature 97.7 F 98.2 F 98.5 F Pulse Rate 74 80 77 Respiratory 12 20 20 Rate Blood Pressure 140/66 152/83 168/82 O2 Sat by Pulse 98 99 100 Oximetry - General Appearance General appearance: well-developed, well-nourished, appears stated age EENT: PERRL, mucous membranes moist Neck: no JVD, no thyromegaly, no carotid bruit, supple Respiratory: Present: Clear to Ascultation Cardiology: regular, normal heart rate, S1S2, no murmurs Gastrointestinal: normal, normoactive bowel sounds Integumentary: no rash, other (no edema) - Lab 06/02/18 04:59 06/03/18 05:08 Most recent lab results Calcium 8.5 mg/dL (8.4-10.2) 06/03/18 05:08 Magnesium 1.80 mg/dL (1.7-2.3) 06/02/18 04:59 Medications & Allergies - Medications Allergies/Adverse Reactions: Allergies No Known Allergies Allergy (Verified 05/05/18 14:30) Home Medications: Home Medications Medication Instructions Recorded Confirmed Last Taken Type Atovaquone [Mepron] 750 mg PO DAILY 06/02/18 06/02/18 Unknown History Citalopram Hydrobromide 20 mg PO DAILY 06/02/18 06/02/18 Unknown History [Citalopram HBr] Dolutegravir [Tivicay] 50 mg PO DAILY 06/02/18 06/02/18 Unknown History Lisinopril [Prinivil] 5 mg PO DAILY 06/02/18 06/02/18 Unknown History Montelukast Sodium 10 mg PO DAILY 06/02/18 06/02/18 Unknown History Quetiapine Fumarate [QUEtiapine 400 mg PO BID 06/02/18 06/02/18 Unknown History Fumarate] Rilpivirine (Nf) [Edurant (Nf)] 25 mg PO QDAY 06/02/18 06/02/18 Unknown History Rosuvastatin (Nf) [Crestor] 5 mg PO QHS 06/02/18 06/02/18 Unknown History hydrALAZINE [Apresoline] 25 mg PO Q8HR 06/02/18 06/02/18 Unknown History lamiVUDine [Lamivudine] 150 mg PO DAILY 06/02/18 06/02/18 Unknown History Active Medications: Generic Name Dose Route Start Last Admin Trade Name Freq PRN Reason Stop Dose Admin Acetaminophen 650 mg 05/31/18 21:28 Tylenol PO Q4H PRN Pain MILD(1-3)/Fever >100.5/BROOKS Albuterol 2.5 mg 06/01/18 21:52 Proventil IH Q4HRT PRN Shortness Of Breath Aspirin 325 mg 06/01/18 10:00 06/03/18 10:09 Ecotrin PO 325 mg QDAY JAKE Administration Sodium Chloride 1,000 mls @ 75 mls/hr 05/31/18 22:00 06/02/18 00:11 Nacl 0.9% 1000 Ml IV 75 mls/hr DIRECT JAKE Administration Insulin Human Regular 0 units 05/31/18 22:00 06/02/18 22:31 Humulin R SUB-Q Not Given ACHS JAKE Protocol Levofloxacin 250 mg 06/01/18 11:00 06/03/18 10:09 Levaquin PO 250 mg Q24HR JAKE Administration Nitroglycerin 0.4 mg 05/31/18 21:44 Nitrostat SL .Q5MIN PRN Chest Pain Ondansetron HCl 4 mg 05/31/18 21:28 Zofran IV Q8H PRN Nausea And Vomiting Risperidone 0.5 mg 06/02/18 22:00 06/02/18 22:30 Risperdal PO 0.5 mg QHS JAKE Administration Sodium Chloride 10 ml 05/31/18 22:00 06/03/18 10:11 Sodium Chloride Flush Syringe 10 Ml IV 10 ml BID JAKE Administration Sodium Chloride 10 ml 05/31/18 21:28 Sodium Chloride Flush Syringe 10 Ml IV PRN PRN LINE FLUSH
[2018-06-03] MEDS: RisperDAL PO SCH (21:32)
[2018-06-04 05:44] LABS: Basophils % (Auto) 0.4 % (0.0-1.8); Eosinophils # (Auto) 0.1 K/mm3 (0.0-0.4); Hemoglobin 9.9 gm/dl (10.1-14.3); Lymphocytes # (Auto) 1.9 K/mm3 (1.2-5.4); Lymphocytes % (Auto) 36.8 % (13.4-35.0); Mean Corpuscular HGB Conc 33 % (30-34); Mean Corpuscular Volume 93 fl (79-97); Monocytes # (Auto) 0.6 K/mm3 (0.0-0.8); Monocytes % (Auto) 11.5 % (0.0-7.3); Platelet Count 253 K/mm3 (140-440); Red Blood Count 3.22 M/mm3 (3.65-5.03)
[2018-06-04 06:02] LABS: Calcium 8.5 mg/dL (8.4-10.2)
[2018-06-04] MEDS: HumuLIN R SUB-Q SCH ×4 (09:22→22:16)
[2018-06-04] MEDS: SODIUM CHLORIDE FLUSH SYRINGE 10 ML IV SCH ×2 (10:25→21:37)
[2018-06-04] MEDS: ECOTRIN PO SCH (10:25)
[2018-06-04] MEDS: LEVAQUIN PO SCH (10:25)
--- NOTE | 2018-06-04 12:04 | Progress Note ---
Assessment and Plan Impression * Acute on chronic renal failure * Bipolar disorder * HIV disease * Hypertension * Diabetes * Obesity * Urinary tract infection Recommendations * Her serum creatinine has improved. Renal function is back to baseline. * Discontinue IV fluid * Renal ultrasound shows a left kidney to be smaller and a right nonobstructing kidney stone * It appears the patient does have a history of underlying chronic kidney disease. * Baseline creatinine however is not known. Serum creatinine was 2.7 in April 2018 * Recent rise in creatinine may be due to Bactrim which she was taking at the time of admission. She may have a prerenal component as well * Monitor fluid status and electrolytes closely * Avoid nephrotoxins * No objection to discharge from renal standpoint Subjective Date of service: 06/04/18 Principal diagnosis: [email or web address] Interval history: Patient is comfortable today. Denies any shortness of breath. No nausea or vomiting. Objective - Vital Signs Vital signs: Vital Signs - 12hr 06/04/18 06/04/18 06/04/18 04:56 08:00 09:20 Temperature 98.3 F 98.3 F Pulse Rate 80 Respiratory 20 20 Rate Blood Pressure 151/83 142/82 - General Appearance General appearance: well-developed, well-nourished, appears stated age EENT: PERRL, mucous membranes moist Neck: no JVD, no thyromegaly, no carotid bruit, supple Respiratory: Present: Clear to Ascultation Cardiology: regular, normal heart rate, S1S2, no murmurs Gastrointestinal: normal, normoactive bowel sounds Integumentary: no rash, other (no edema) - Lab 06/04/18 05:13 06/04/18 05:13 Most recent lab results Calcium 8.5 mg/dL (8.4-10.2) 06/04/18 05:13 Magnesium 1.80 mg/dL (1.7-2.3) 06/02/18 04:59 Medications & Allergies - Medications Allergies/Adverse Reactions: Allergies No Known Allergies Allergy (Verified 05/05/18 14:30) Home Medications: Home Medications Medication Instructions Recorded Confirmed Last Taken Type Atovaquone [Mepron] 750 mg PO DAILY 06/02/18 06/02/18 Unknown History Citalopram Hydrobromide 20 mg PO DAILY 06/02/18 06/02/18 Unknown History [Citalopram HBr] Dolutegravir [Tivicay] 50 mg PO DAILY 06/02/18 06/02/18 Unknown History Lisinopril [Prinivil] 5 mg PO DAILY 06/02/18 06/02/18 Unknown History Montelukast Sodium 10 mg PO DAILY 06/02/18 06/02/18 Unknown History Quetiapine Fumarate [QUEtiapine 400 mg PO BID 06/02/18 06/02/18 Unknown History Fumarate] Rilpivirine (Nf) [Edurant (Nf)] 25 mg PO QDAY 06/02/18 06/02/18 Unknown History Rosuvastatin (Nf) [Crestor] 5 mg PO QHS 06/02/18 06/02/18 Unknown History hydrALAZINE [Apresoline] 25 mg PO Q8HR 06/02/18 06/02/18 Unknown History lamiVUDine [Lamivudine] 150 mg PO DAILY 06/02/18 06/02/18 Unknown History Active Medications: Generic Name Dose Route Start Last Admin Trade Name Freq PRN Reason Stop Dose Admin Acetaminophen 650 mg 05/31/18 21:28 Tylenol PO Q4H PRN Pain MILD(1-3)/Fever >100.5/BROOKS Albuterol 2.5 mg 06/01/18 21:52 Proventil IH Q4HRT PRN Shortness Of Breath Aspirin 325 mg 06/01/18 10:00 06/04/18 10:25 Ecotrin PO 325 mg QDAY JAKE Administration Sodium Chloride 1,000 mls @ 75 mls/hr 05/31/18 22:00 06/02/18 00:11 Nacl 0.9% 1000 Ml IV 75 mls/hr DIRECT JAKE Administration Insulin Human Regular 0 units 05/31/18 22:00 06/04/18 11:56 Humulin R SUB-Q Not Given ACHS JAKE Protocol Levofloxacin 250 mg 06/01/18 11:00 06/04/18 10:25 Levaquin PO 250 mg Q24HR JAKE Administration Nitroglycerin 0.4 mg 05/31/18 21:44 Nitrostat SL .Q5MIN PRN Chest Pain Ondansetron HCl 4 mg 05/31/18 21:28 Zofran IV Q8H PRN Nausea And Vomiting Risperidone 0.5 mg 06/02/18 22:00 06/03/18 21:32 Risperdal PO 0.5 mg QHS JAKE Administration Sodium Chloride 10 ml 05/31/18 22:00 06/04/18 10:25 Sodium Chloride Flush Syringe 10 Ml IV 10 ml BID JAKE Administration Sodium Chloride 10 ml 05/31/18 21:28 Sodium Chloride Flush Syringe 10 Ml IV PRN PRN LINE FLUSH
--- NOTE | 2018-06-04 12:55 | Progress Note ---
Assessment and Plan Assessment and plan: Virgilio second-degree AV block. Echo reviewed - EF 55-60%, mild LVH, no significant valvular abnormalities. Thyroid profile WNL. Consider 30 day event monitor as OP. Frequent falls. ?Etiology likely secondary to above Acute on chronic kidney disease. Nephrology following. Renal ultrasound re veals no obstruction. Baseline creatinine however is not known. As noted above her serum creatinine was 2.7 in April 2018 UTI. IV antibiotics and follow-up blood and urine cultures. HIV disease. Consider ID consultation. Hypertension. Resume antihypertensive medications. Diabetes mellitus type 2. Continue Accu-Cheks and sliding scale regular insulin Schizophrenia/psychosis. Psychiatry following Morbid obesity. Disposition. Anticipate discharge in a.m. PT evaluation. History Interval history: Patient no issues overnight Hospitalist Physical - Constitutional Vitals: Temp Pulse Resp BP Pulse Ox 98.3 F 80 20 142/82 98 06/04/18 09:20 06/04/18 08:00 06/04/18 09:20 06/04/18 09:20 06/03/18 20:25 General appearance: Present: no acute distress - EENT Eyes: Present: PERRL, EOM intact ENT: hearing intact, clear oral mucosa, dentition normal - Neck Neck: Present: supple, normal ROM - Respiratory Respiratory effort: normal Respiratory: bilateral: CTA - Cardiovascular Rhythm: regular Heart Sounds: Present: S1 & S2. Absent: gallop, rub - Extremities Extremities: no ischemia, No edema, Full ROM - Abdominal General gastrointestinal: soft, non-tender, non-distended, normal bowel sounds - Integumentary Integumentary: Present: clear, warm, dry - Neurologic Neurologic: CNII-XII intact, moves all extremities Results - Labs CBC & Chem 7: 06/04/18 05:13 06/04/18 05:13 Labs: Laboratory Last Values WBC 5.2 K/mm3 (4.5-11.0) 06/04/18 05:13 RBC 3.22 M/mm3 (3.65-5.03) L 06/04/18 05:13 Hgb 9.9 gm/dl (10.1-14.3) L 06/04/18 05:13 Hct 30.0 % (30.3-42.9) L 06/04/18 05:13 MCV 93 fl (79-97) 06/04/18 05:13 MCH 31 pg (28-32) 06/04/18 05:13 MCHC 33 % (30-34) 06/04/18 05:13 RDW 17.0 % (13.2-15.2) H 06/04/18 05:13 Plt Count 253 K/mm3 (140-440) 06/04/18 05:13 Lymph % (Auto) 36.8 % (13.4-35.0) H 06/04/18 05:13 Hyde % (Auto) 11.5 % (0.0-7.3) H 06/04/18 05:13 Eos % (Auto) 2.0 % (0.0-4.3) 06/04/18 05:13 Baso % (Auto) 0.4 % (0.0-1.8) 06/04/18 05:13 Lymph # 1.9 K/mm3 (1.2-5.4) 06/04/18 05:13 Hyde # 0.6 K/mm3 (0.0-0.8) 06/04/18 05:13 Eos # 0.1 K/mm3 (0.0-0.4) 06/04/18 05:13 Baso # 0.0 K/mm3 (0.0-0.1) 06/04/18 05:13 Seg Neutrophils % 49.3 % (40.0-70.0) 06/04/18 05:13 Seg Neutrophils # 2.6 K/mm3 (1.8-7.7) 06/04/18 05:13 Sodium 137 mmol/L (137-145) 06/04/18 05:13 Potassium 4.8 mmol/L (3.6-5.0) 06/04/18 05:13 Chloride 106.8 mmol/L (98-107) 06/04/18 05:13 Carbon Dioxide 19 mmol/L (22-30) L 06/04/18 05:13 Anion Gap 16 mmol/L 06/04/18 05:13 BUN 30 mg/dL (7-17) H 06/04/18 05:13 Creatinine 2.4 mg/dL (0.7-1.2) H 06/04/18 05:13 Estimated GFR 25 ml/min 06/04/18 05:13 BUN/Creatinine Ratio 13 % 06/04/18 05:13 Glucose 99 mg/dL (65-100) 06/04/18 05:13 POC Glucose 72 (70-105) 06/04/18 11:47 Calcium 8.5 mg/dL (8.4-10.2) 06/04/18 05:13 Magnesium 1.80 mg/dL (1.7-2.3) 06/02/18 04:59 Total Creatine Kinase 256 units/L (30-135) H 05/31/18 17:56 CK-MB (CK-2) 7.0 ng/mL (0.0-4.0) H 05/31/18 17:56 CK-MB (CK-2) Rel Index 2.7 (0-4) 05/31/18 17:56 Troponin T 0.030 ng/mL (0.00-0.029) H D 06/01/18 11:51 Triglycerides 150 mg/dL (2-149) H 06/01/18 11:51 Cholesterol 204 mg/dL (50-199) H 06/01/18 11:51 LDL Cholesterol Direct 167 mg/dL (50-130) H 06/01/18 11:51 HDL Cholesterol 32 mg/dL (40-59) L 06/01/18 11:51 Cholesterol/HDL Ratio 6.37 % 06/01/18 11:51 TSH 1.750 mlU/mL (0.270-4.200) 06/02/18 13:29 Free T4 1.03 ng/dL (0.76-1.46) 06/02/18 13:29 Urine Color Yellow (Yellow) 05/31/18 19:32 Urine Turbidity Cloudy (Clear) 05/31/18 19:32 Urine pH 6.0 (5.0-7.0) 05/31/18 19:32 Ur Specific Burna 1.009 (1.003-1.030) 05/31/18 19:32 Urine Protein 100 mg/dl mg/dL (Negative) 05/31/18 19:32 Urine Glucose (UA) Neg mg/dL (Negative) 05/31/18 19:32 Urine Ketones Neg mg/dL (Negative) 05/31/18 19:32 Urine Blood Sm (Negative) 05/31/18 19:32 Urine Nitrite Neg (Negative) 05/31/18 19:32 Urine Bilirubin Neg (Negative) 05/31/18 19:32 Urine Urobilinogen < 2.0 mg/dL (<2.0) 05/31/18 19:32 Ur Leukocyte Esterase Lg (Negative) 05/31/18 19:32 Urine WBC (Auto) > 182.0 /HPF (0.0-6.0) H 05/31/18 19:32 Urine RBC (Auto) 83.0 /HPF (0.0-6.0) 05/31/18 19:32 U Epithel Cells (Auto) 4.0 /HPF (0-13.0) 05/31/18 19:32 Urine Bacteria (Auto) 1+ /HPF (Negative) 05/31/18 19:32 Urine WBC Clumps 3+ /HPF 05/31/18 19:32 Urine Yeast (Budding) 2+ /HPF 05/31/18 19:32 Urine Eosinophils >5% (None Seen) 06/01/18 14:30 Urine Opiates Screen Presumptive negative 05/31/18 19:32 Urine Methadone Screen Presumptive negative 05/31/18 19:32 Ur Barbiturates Screen Presumptive negative 05/31/18 19:32 Ur Phencyclidine Scrn Presumptive negative 05/31/18 19:32 Ur Amphetamines Screen Presumptive negative 05/31/18 19:32 U Benzodiazepines Scrn Presumptive negative 05/31/18 19:32 Urine Cocaine Screen Presumptive negative 05/31/18 19:32 U Marijuana (THC) Screen Presumptive negative 05/31/18 19:32 Drugs of Abuse Note Disclamer 05/31/18 19:32 Plasma/Serum Alcohol < 0.01 % (0-0.07) 05/31/18 17:56 Active Medications - Current Medications Current Medications: Generic Name Dose Route Start Last Admin Trade Name Freq PRN Reason Stop Dose Admin Acetaminophen 650 mg 05/31/18 21:28 Tylenol PO Q4H PRN Pain MILD(1-3)/Fever >100.5/BROOKS Albuterol 2.5 mg 06/01/18 21:52 Proventil IH Q4HRT PRN Shortness Of Breath Aspirin 325 mg 06/01/18 10:00 06/04/18 10:25 Ecotrin PO 325 mg QDAY JAKE Administration Insulin Human Regular 0 units 05/31/18 22:00 06/04/18 11:56 Humulin R SUB-Q Not Given ACHS [facility] Protocol Levofloxacin 250 mg 06/01/18 11:00 06/04/18 10:25 Levaquin PO 250 mg Q24HR JAKE Administration Nitroglycerin 0.4 mg 05/31/18 21:44 Nitrostat SL .Q5MIN PRN Chest Pain Ondansetron HCl 4 mg 05/31/18 21:28 Zofran IV Q8H PRN Nausea And Vomiting Risperidone 0.5 mg 06/02/18 22:00 06/03/18 21:32 Risperdal PO 0.5 mg QHS JAKE Administration Sodium Chloride 10 ml 05/31/18 22:00 06/04/18 10:25 Sodium Chloride Flush Syringe 10 Ml IV 10 ml BID JAKE Administration Sodium Chloride 10 ml 05/31/18 21:28 Sodium Chloride Flush Syringe 10 Ml IV PRN PRN LINE FLUSH
[2018-06-04] MEDS: RisperDAL PO SCH (21:36)
[2018-06-05 08:00] LABS: Basophils % (Auto) 0.4 % (0.0-1.8); Eosinophils # (Auto) 0.1 K/mm3 (0.0-0.4); Hematocrit 29.9 % (30.3-42.9); Hemoglobin 9.8 gm/dl (10.1-14.3); Lymphocytes # (Auto) 1.9 K/mm3 (1.2-5.4); Lymphocytes % (Auto) 37.5 % (13.4-35.0); Mean Corpuscular HGB Conc 33 % (30-34); Mean Corpuscular Volume 94 fl (79-97); Monocytes # (Auto) 0.5 K/mm3 (0.0-0.8); Monocytes % (Auto) 10.5 % (0.0-7.3); Platelet Count 242 K/mm3 (140-440); Red Blood Count 3.19 M/mm3 (3.65-5.03); Red Cell Distribution Width 16.6 % (13.2-15.2)
[2018-06-05 08:20] LABS: Calcium 8.4 mg/dL (8.4-10.2)
[2018-06-05] MEDS: HumuLIN R SUB-Q SCH ×4 (08:52→21:42)
[2018-06-05] MEDS: SODIUM CHLORIDE FLUSH SYRINGE 10 ML IV SCH ×2 (10:52→21:42)
[2018-06-05] MEDS: LEVAQUIN PO SCH (10:52)
[2018-06-05] MEDS: ECOTRIN PO SCH (10:52)
--- NOTE | 2018-06-05 11:18 | Progress Note ---
Assessment and Plan Impression * Acute on chronic renal failure * Bipolar disorder * HIV disease * Hypertension * Diabetes * Obesity * Urinary tract infection Recommendations * Her serum creatinine has improved. Renal function is back to baseline. * Off IV fluid * Renal ultrasound shows a left kidney to be smaller and a right nonobstructing kidney stone * It appears the patient does have a history of underlying chronic kidney disease. * Baseline creatinine however is not known. Serum creatinine was 2.7 in April 2018 * Recent rise in creatinine may be due to Bactrim which she was taking at the time of admission. She may have a prerenal component as well * Monitor fluid status and electrolytes closely * Avoid nephrotoxins * No objection to discharge from renal standpoint Subjective Date of service: 06/05/18 Principal diagnosis: [email or web address] Interval history: Patient is comfortable today. Denies any shortness of breath. No nausea or vomiting. Objective - Vital Signs Vital signs: Vital Signs - 12hr 06/04/18 06/05/18 23:46 04:04 Temperature 98.0 F 98.0 F Pulse Rate 75 Respiratory 18 18 Rate Blood Pressure 154/70 122/73 O2 Sat by Pulse 99 Oximetry - General Appearance General appearance: well-developed, well-nourished, appears stated age EENT: PERRL, mucous membranes moist Neck: no JVD, no thyromegaly, no carotid bruit, supple Respiratory: Present: Clear to Ascultation Cardiology: regular, normal heart rate, S1S2, no murmurs Gastrointestinal: normal, normoactive bowel sounds Integumentary: no rash, other (no edema) - Lab 06/05/18 07:31 06/05/18 07:31 Most recent lab results Calcium 8.4 mg/dL (8.4-10.2) 06/05/18 07:31 Magnesium 1.80 mg/dL (1.7-2.3) 06/02/18 04:59 Medications & Allergies - Medications Allergies/Adverse Reactions: Allergies No Known Allergies Allergy (Verified 05/05/18 14:30) Home Medications: Home Medications Medication Instructions Recorded Confirmed Last Taken Type Atovaquone [Mepron] 750 mg PO DAILY 06/02/18 06/02/18 Unknown History Citalopram Hydrobromide 20 mg PO DAILY 06/02/18 06/02/18 Unknown History [Citalopram HBr] Dolutegravir [Tivicay] 50 mg PO DAILY 06/02/18 06/02/18 Unknown History Lisinopril [Prinivil] 5 mg PO DAILY 06/02/18 06/02/18 Unknown History Montelukast Sodium 10 mg PO DAILY 06/02/18 06/02/18 Unknown History Quetiapine Fumarate [QUEtiapine 400 mg PO BID 06/02/18 06/02/18 Unknown History Fumarate] Rilpivirine (Nf) [Edurant (Nf)] 25 mg PO QDAY 06/02/18 06/02/18 Unknown History Rosuvastatin (Nf) [Crestor] 5 mg PO QHS 06/02/18 06/02/18 Unknown History hydrALAZINE [Apresoline] 25 mg PO Q8HR 06/02/18 06/02/18 Unknown History lamiVUDine [Lamivudine] 150 mg PO DAILY 06/02/18 06/02/18 Unknown History Active Medications: Generic Name Dose Route Start Last Admin Trade Name Freq PRN Reason Stop Dose Admin Acetaminophen 650 mg 05/31/18 21:28 Tylenol PO Q4H PRN Pain MILD(1-3)/Fever >100.5/BROOKS Albuterol 2.5 mg 06/01/18 21:52 Proventil IH Q4HRT PRN Shortness Of Breath Aspirin 325 mg 06/01/18 10:00 06/05/18 10:52 Ecotrin PO 325 mg QDAY JAKE Administration Insulin Human Regular 0 units 05/31/18 22:00 06/05/18 08:52 Humulin R SUB-Q Not Given [facility] Protocol Levofloxacin 250 mg 06/01/18 11:00 06/05/18 10:52 Levaquin PO 250 mg Q24HR JAKE Administration Nitroglycerin 0.4 mg 05/31/18 21:44 Nitrostat SL .Q5MIN PRN Chest Pain Ondansetron HCl 4 mg 05/31/18 21:28 Zofran IV Q8H PRN Nausea And Vomiting Risperidone 0.5 mg 06/02/18 22:00 06/04/18 21:36 Risperdal PO 0.5 mg QHS JAKE Administration Sodium Chloride 10 ml 05/31/18 22:00 06/05/18 10:52 Sodium Chloride Flush Syringe 10 Ml IV 10 ml BID JAKE Administration Sodium Chloride 10 ml 05/31/18 21:28 Sodium Chloride Flush Syringe 10 Ml IV PRN PRN LINE FLUSH
--- NOTE | 2018-06-05 11:23 | Progress Note ---
Assessment and Plan Assessment and plan: Virgilio second-degree AV block. Echo reviewed - EF 55-60%, mild LVH, no significant valvular abnormalities. Thyroid profile WNL. Consider 30 day event monitor as OP. Frequent falls. ?Etiology likely secondary to above Acute on chronic kidney disease. Nephrology following. Renal ultrasound re veals no obstruction. Baseline creatinine however is not known. As noted above her serum creatinine was 2.7 in April 2018 UTI. IV antibiotics and follow-up blood and urine cultures. HIV disease. Consider ID consultation. Hypertension. Resume antihypertensive medications. Diabetes mellitus type 2. Continue Accu-Cheks and sliding scale regular insulin Schizophrenia/psychosis. Psychiatry following Morbid obesity. Disposition. Await PT evaluation for discharge disposition. History Interval history: Patient no issues overnight Hospitalist Physical - Constitutional Vitals: Temp Pulse Resp BP Pulse Ox 98.0 F 75 18 122/73 99 06/05/18 04:04 06/04/18 23:46 06/05/18 04:04 06/05/18 04:04 06/04/18 23:46 General appearance: Present: no acute distress - EENT Eyes: Present: PERRL, EOM intact ENT: hearing intact, clear oral mucosa, dentition normal - Neck Neck: Present: supple, normal ROM - Respiratory Respiratory effort: normal Respiratory: bilateral: CTA - Cardiovascular Rhythm: regular Heart Sounds: Present: S1 & S2. Absent: gallop, rub - Extremities Extremities: no ischemia, No edema, Full ROM - Abdominal General gastrointestinal: soft, non-tender, non-distended, normal bowel sounds - Integumentary Integumentary: Present: clear, warm, dry - Neurologic Neurologic: CNII-XII intact, moves all extremities Results - Labs CBC & Chem 7: 06/05/18 07:31 06/05/18 07:31 Labs: Laboratory Last Values WBC 5.2 K/mm3 (4.5-11.0) 06/05/18 07:31 RBC 3.19 M/mm3 (3.65-5.03) L 06/05/18 07:31 Hgb 9.8 gm/dl (10.1-14.3) L 06/05/18 07:31 Hct 29.9 % (30.3-42.9) L 06/05/18 07:31 MCV 94 fl (79-97) 06/05/18 07:31 MCH 31 pg (28-32) 06/05/18 07:31 MCHC 33 % (30-34) 06/05/18 07:31 RDW 16.6 % (13.2-15.2) H 06/05/18 07:31 Plt Count 242 K/mm3 (140-440) 06/05/18 07:31 Lymph % (Auto) 37.5 % (13.4-35.0) H 06/05/18 07:31 [place] % (Auto) 10.5 % (0.0-7.3) H 06/05/18 07:31 Eos % (Auto) 2.0 % (0.0-4.3) 06/05/18 07:31 Baso % (Auto) 0.4 % (0.0-1.8) 06/05/18 07:31 Lymph # 1.9 K/mm3 (1.2-5.4) 06/05/18 07:31 [place] # 0.5 K/mm3 (0.0-0.8) 06/05/18 07:31 Eos # 0.1 K/mm3 (0.0-0.4) 06/05/18 07:31 Baso # 0.0 K/mm3 (0.0-0.1) 06/05/18 07:31 Seg Neutrophils % 49.6 % (40.0-70.0) 06/05/18 07:31 Seg Neutrophils # 2.6 K/mm3 (1.8-7.7) 06/05/18 07:31 Sodium 138 mmol/L (137-145) 06/05/18 07:31 Potassium 5.0 mmol/L (3.6-5.0) 06/05/18 07:31 Chloride 108.4 mmol/L (98-107) H 06/05/18 07:31 Carbon Dioxide 22 mmol/L (22-30) 06/05/18 07:31 Anion Gap 13 mmol/L 06/05/18 07:31 BUN 33 mg/dL (7-17) H 06/05/18 07:31 Creatinine 2.5 mg/dL (0.7-1.2) H 06/05/18 07:31 Estimated GFR 24 ml/min 06/05/18 07:31 BUN/Creatinine Ratio 13 % 06/05/18 07:31 Glucose 90 mg/dL (65-100) 06/05/18 07:31 POC Glucose 195 (70-105) H 06/05/18 11:17 Calcium 8.4 mg/dL (8.4-10.2) 06/05/18 07:31 Magnesium 1.80 mg/dL (1.7-2.3) 06/02/18 04:59 Total Creatine Kinase 256 units/L (30-135) H 05/31/18 17:56 CK-MB (CK-2) 7.0 ng/mL (0.0-4.0) H 05/31/18 17:56 CK-MB (CK-2) Rel Index 2.7 (0-4) 05/31/18 17:56 Troponin T 0.030 ng/mL (0.00-0.029) H D 06/01/18 11:51 Triglycerides 150 mg/dL (2-149) H 06/01/18 11:51 Cholesterol 204 mg/dL (50-199) H 06/01/18 11:51 LDL Cholesterol Direct 167 mg/dL (50-130) H 06/01/18 11:51 HDL Cholesterol 32 mg/dL (40-59) L 06/01/18 11:51 Cholesterol/HDL Ratio 6.37 % 06/01/18 11:51 TSH 1.750 mlU/mL (0.270-4.200) 06/02/18 13:29 Free T4 1.03 ng/dL (0.76-1.46) 06/02/18 13:29 Urine Color Yellow (Yellow) 05/31/18 19:32 Urine Turbidity Cloudy (Clear) 05/31/18 19:32 Urine pH 6.0 (5.0-7.0) 05/31/18 19:32 Ur Specific [place] 1.009 (1.003-1.030) 05/31/18 19:32 Urine Protein 100 mg/dl mg/dL (Negative) 05/31/18 19:32 Urine Glucose (UA) Neg mg/dL (Negative) 05/31/18 19:32 Urine Ketones Neg mg/dL (Negative) 05/31/18 19:32 Urine Blood Sm (Negative) 05/31/18 19:32 Urine Nitrite Neg (Negative) 05/31/18 19:32 Urine Bilirubin Neg (Negative) 05/31/18 19:32 Urine Urobilinogen < 2.0 mg/dL (<2.0) 05/31/18 19:32 Ur Leukocyte Esterase Lg (Negative) 05/31/18 19:32 Urine WBC (Auto) > 182.0 /HPF (0.0-6.0) H 05/31/18 19:32 Urine RBC (Auto) 83.0 /HPF (0.0-6.0) 05/31/18 19:32 U Epithel Cells (Auto) 4.0 /HPF (0-13.0) 05/31/18 19:32 Urine Bacteria (Auto) 1+ /HPF (Negative) 05/31/18 19:32 Urine WBC Clumps 3+ /HPF 05/31/18 19:32 Urine Yeast (Budding) 2+ /HPF 05/31/18 19:32 Urine Eosinophils >5% (None Seen) 06/01/18 14:30 Urine Opiates Screen Presumptive negative 05/31/18 19:32 Urine Methadone Screen Presumptive negative 05/31/18 19:32 Ur Barbiturates Screen Presumptive negative 05/31/18 19:32 Ur Phencyclidine Scrn Presumptive negative 05/31/18 19:32 Ur Amphetamines Screen Presumptive negative 05/31/18 19:32 U Benzodiazepines Scrn Presumptive negative 05/31/18 19:32 Urine Cocaine Screen Presumptive negative 05/31/18 19:32 U Marijuana (THC) Screen Presumptive negative 05/31/18 19:32 Drugs of Abuse Note Disclamer 05/31/18 19:32 Plasma/Serum Alcohol < 0.01 % (0-0.07) 05/31/18 17:56 Active Medications - Current Medications Current Medications: Generic Name Dose Route Start Last Admin Trade Name Freq PRN Reason Stop Dose Admin Acetaminophen 650 mg 05/31/18 21:28 Tylenol PO Q4H PRN Pain MILD(1-3)/Fever >100.5/BROOKS Albuterol 2.5 mg 06/01/18 21:52 Proventil IH Q4HRT PRN Shortness Of Breath Aspirin 325 mg 06/01/18 10:00 06/05/18 10:52 Ecotrin PO 325 mg QDAY JAKE Administration Insulin Human Regular 0 units 05/31/18 22:00 06/05/18 08:52 Humulin R SUB-Q Not Given ACHS [facility] Protocol Levofloxacin 250 mg 06/01/18 11:00 06/05/18 10:52 Levaquin PO 250 mg Q24HR JAKE Administration Nitroglycerin 0.4 mg 05/31/18 21:44 Nitrostat SL .Q5MIN PRN Chest Pain Ondansetron HCl 4 mg 05/31/18 21:28 Zofran IV Q8H PRN Nausea And Vomiting Risperidone 0.5 mg 06/02/18 22:00 06/04/18 21:36 Risperdal PO 0.5 mg QHS JAKE Administration Sodium Chloride 10 ml 05/31/18 22:00 06/05/18 10:52 Sodium Chloride Flush Syringe 10 Ml IV 10 ml BID JAKE Administration Sodium Chloride 10 ml 05/31/18 21:28 Sodium Chloride Flush Syringe 10 Ml IV PRN PRN LINE FLUSH
--- NOTE | 2018-06-05 17:55 | Progress Note ---
Subjective - Reason for Consult Consult date: 06/05/18 Reason for consult: follow up - Chief Complaint Chief complaint: "I'm doing much better." Patient is a 52 female who presents to the emergency room with a past medical history HIV, diabetes, hypertension, and renal insufficiency. Patient has a PPHx of schizophrenia and bipolar. She is out of bed and talked about the fall which brought her to the hospital. She states she is doing much better. She said she takes a medication for voices twice a day at home but does not know the name. She plans to continue it when she leaves. Narrative exam: Mental Status Exam Appearance: calm Behavior: regular eye contact Speech: regular rate and tone Mood: " I feel good" Affect: congruent to mood Thought Process: organized; impoverished Thought Content: no gestures of SI/HI, denies AVH Motor Activity: ambulatory Cognition: A/O x 3 Insight: poor Judgment: fair Assessment and plan: Impression: PPHx Schizophrenia. Psychosis Unspecified. Today the patient is calm and cooperative during the assessment. She denies SI/HI's, A/VH's, and delusions. UDS negative. Recommendation/Plan: Continue risperdal 0.5mg hs Disposition: Medication management. She will follow up with outpatient psychiatric provider Staffed with Dr. Melanie Moreno. Mental Status Exam - Vital signs Last Vital Signs Temp 98.7 F 06/05/18 16:13 Pulse 72 06/05/18 16:13 Resp 20 06/05/18 16:13 BP 167/83 06/05/18 16:13 Pulse Ox 97 06/05/18 16:13
[2018-06-05] MEDS: RisperDAL PO SCH (21:41)
[2018-06-06 06:06] LABS: Calcium 8.7 mg/dL (8.4-10.2)
[2018-06-06] MEDS: HumuLIN R SUB-Q SCH ×4 (08:26→22:00)
--- NOTE | 2018-06-06 09:56 | Progress Note ---
Assessment and Plan Assessment and plan: Virgilio second-degree AV block. Echo reviewed - EF 55-60%, mild LVH, no significant valvular abnormalities. Thyroid profile WNL. Consider 30 day event monitor as OP. Frequent falls. ?Etiology likely secondary to above Acute on chronic kidney disease. Nephrology following. Renal ultrasound re veals no obstruction. Baseline creatinine however is not known. As noted above her serum creatinine was 2.7 in April 2018 UTI. IV antibiotics and follow-up blood and urine cultures. HIV disease. Consider ID consultation. Hypertension. Resume antihypertensive medications. Diabetes mellitus type 2. Continue Accu-Cheks and sliding scale regular insulin Schizophrenia/psychosis. Psychiatry following Morbid obesity. Disposition. Await PT evaluation/determination for discharge disposition. History Interval history: Patient no issues overnight Hospitalist Physical - Constitutional Vitals: Temp Pulse Resp BP Pulse Ox 97.9 F 78 18 143/85 96 06/06/18 08:43 06/06/18 08:43 06/06/18 08:43 06/06/18 08:43 06/06/18 08:43 General appearance: Present: no acute distress - EENT Eyes: Present: PERRL, EOM intact ENT: hearing intact, clear oral mucosa, dentition normal - Neck Neck: Present: supple, normal ROM - Respiratory Respiratory effort: normal Respiratory: bilateral: CTA - Cardiovascular Rhythm: regular Heart Sounds: Present: S1 & S2. Absent: gallop, rub - Extremities Extremities: no ischemia, No edema, Full ROM - Abdominal General gastrointestinal: soft, non-tender, non-distended, normal bowel sounds - Integumentary Integumentary: Present: clear, warm, dry - Neurologic Neurologic: CNII-XII intact, moves all extremities Results - Labs CBC & Chem 7: 06/05/18 07:31 06/06/18 04:59 Labs: Laboratory Last Values WBC 5.2 K/mm3 (4.5-11.0) 06/05/18 07:31 RBC 3.19 M/mm3 (3.65-5.03) L 06/05/18 07:31 Hgb 9.8 gm/dl (10.1-14.3) L 06/05/18 07:31 Hct 29.9 % (30.3-42.9) L 06/05/18 07:31 MCV 94 fl (79-97) 06/05/18 07:31 MCH 31 pg (28-32) 06/05/18 07:31 MCHC 33 % (30-34) 06/05/18 07:31 RDW 16.6 % (13.2-15.2) H 06/05/18 07:31 Plt Count 242 K/mm3 (140-440) 06/05/18 07:31 Lymph % (Auto) 37.5 % (13.4-35.0) H 06/05/18 07:31 [place] % (Auto) 10.5 % (0.0-7.3) H 06/05/18 07:31 Eos % (Auto) 2.0 % (0.0-4.3) 06/05/18 07:31 Baso % (Auto) 0.4 % (0.0-1.8) 06/05/18 07:31 Lymph # 1.9 K/mm3 (1.2-5.4) 06/05/18 07:31 [place] # 0.5 K/mm3 (0.0-0.8) 06/05/18 07:31 Eos # 0.1 K/mm3 (0.0-0.4) 06/05/18 07:31 Baso # 0.0 K/mm3 (0.0-0.1) 06/05/18 07:31 Seg Neutrophils % 49.6 % (40.0-70.0) 06/05/18 07:31 Seg Neutrophils # 2.6 K/mm3 (1.8-7.7) 06/05/18 07:31 Sodium 138 mmol/L (137-145) 06/06/18 04:59 Potassium 4.7 mmol/L (3.6-5.0) 06/06/18 04:59 Chloride 106.8 mmol/L (98-107) 06/06/18 04:59 Carbon Dioxide 20 mmol/L (22-30) L 06/06/18 04:59 Anion Gap 16 mmol/L 06/06/18 04:59 BUN 35 mg/dL (7-17) H 06/06/18 04:59 Creatinine 2.7 mg/dL (0.7-1.2) H 06/06/18 04:59 Estimated GFR 22 ml/min 06/06/18 04:59 BUN/Creatinine Ratio 13 % 06/06/18 04:59 Glucose 88 mg/dL (65-100) 06/06/18 04:59 POC Glucose 78 (70-105) 06/06/18 07:52 Calcium 8.7 mg/dL (8.4-10.2) 06/06/18 04:59 Magnesium 1.80 mg/dL (1.7-2.3) 06/02/18 04:59 Total Creatine Kinase 256 units/L (30-135) H 05/31/18 17:56 CK-MB (CK-2) 7.0 ng/mL (0.0-4.0) H 05/31/18 17:56 CK-MB (CK-2) Rel Index 2.7 (0-4) 05/31/18 17:56 Troponin T 0.030 ng/mL (0.00-0.029) H D 06/01/18 11:51 Triglycerides 150 mg/dL (2-149) H 06/01/18 11:51 Cholesterol 204 mg/dL (50-199) H 06/01/18 11:51 LDL Cholesterol Direct 167 mg/dL (50-130) H 06/01/18 11:51 HDL Cholesterol 32 mg/dL (40-59) L 06/01/18 11:51 Cholesterol/HDL Ratio 6.37 % 06/01/18 11:51 TSH 1.750 mlU/mL (0.270-4.200) 06/02/18 13:29 Free T4 1.03 ng/dL (0.76-1.46) 06/02/18 13:29 Urine Color Yellow (Yellow) 05/31/18 19:32 Urine Turbidity Cloudy (Clear) 05/31/18 19:32 Urine pH 6.0 (5.0-7.0) 05/31/18 19:32 Ur Specific [place] 1.009 (1.003-1.030) 05/31/18 19:32 Urine Protein 100 mg/dl mg/dL (Negative) 05/31/18 19:32 Urine Glucose (UA) Neg mg/dL (Negative) 05/31/18 19:32 Urine Ketones Neg mg/dL (Negative) 05/31/18 19:32 Urine Blood Sm (Negative) 05/31/18 19:32 Urine Nitrite Neg (Negative) 05/31/18 19:32 Urine Bilirubin Neg (Negative) 05/31/18 19:32 Urine Urobilinogen < 2.0 mg/dL (<2.0) 05/31/18 19:32 Ur Leukocyte Esterase Lg (Negative) 05/31/18 19:32 Urine WBC (Auto) > 182.0 /HPF (0.0-6.0) H 05/31/18 19:32 Urine RBC (Auto) 83.0 /HPF (0.0-6.0) 05/31/18 19:32 U Epithel Cells (Auto) 4.0 /HPF (0-13.0) 05/31/18 19:32 Urine Bacteria (Auto) 1+ /HPF (Negative) 05/31/18 19:32 Urine WBC Clumps 3+ /HPF 05/31/18 19:32 Urine Yeast (Budding) 2+ /HPF 05/31/18 19:32 Urine Eosinophils >5% (None Seen) 06/01/18 14:30 Urine Opiates Screen Presumptive negative 05/31/18 19:32 Urine Methadone Screen Presumptive negative 05/31/18 19:32 Ur Barbiturates Screen Presumptive negative 05/31/18 19:32 Ur Phencyclidine Scrn Presumptive negative 05/31/18 19:32 Ur Amphetamines Screen Presumptive negative 05/31/18 19:32 U Benzodiazepines Scrn Presumptive negative 05/31/18 19:32 Urine Cocaine Screen Presumptive negative 05/31/18 19:32 U Marijuana (THC) Screen Presumptive negative 05/31/18 19:32 Drugs of Abuse Note Disclamer 05/31/18 19:32 Plasma/Serum Alcohol < 0.01 % (0-0.07) 05/31/18 17:56 Active Medications - Current Medications Current Medications: Generic Name Dose Route Start Last Admin Trade Name Freq PRN Reason Stop Dose Admin Acetaminophen 650 mg 05/31/18 21:28 Tylenol PO Q4H PRN Pain MILD(1-3)/Fever >100.5/BROOKS Albuterol 2.5 mg 06/01/18 21:52 Proventil IH Q4HRT PRN Shortness Of Breath Aspirin 325 mg 06/01/18 10:00 06/05/18 10:52 Ecotrin PO 325 mg QDAY JAKE Administration Insulin Human Regular 0 units 05/31/18 22:00 06/06/18 08:26 Humulin R SUB-Q Not Given ACHS [facility] Protocol Levofloxacin 250 mg 06/01/18 11:00 06/05/18 10:52 Levaquin PO 250 mg Q24HR JAKE Administration Nitroglycerin 0.4 mg 05/31/18 21:44 Nitrostat SL .Q5MIN PRN Chest Pain Ondansetron HCl 4 mg 05/31/18 21:28 Zofran IV Q8H PRN Nausea And Vomiting Risperidone 0.5 mg 06/02/18 22:00 06/05/18 21:41 Risperdal PO 0.5 mg QHS JAKE Administration Sodium Chloride 10 ml 05/31/18 22:00 06/05/18 21:42 Sodium Chloride Flush Syringe 10 Ml IV 10 ml BID JAKE Administration Sodium Chloride 10 ml 05/31/18 21:28 Sodium Chloride Flush Syringe 10 Ml IV PRN PRN LINE FLUSH
[2018-06-06] MEDS: LEVAQUIN PO SCH (10:29)
[2018-06-06] MEDS: ECOTRIN PO SCH (10:29)
[2018-06-06] MEDS: SODIUM CHLORIDE FLUSH SYRINGE 10 ML IV SCH ×2 (10:29→21:58)
--- NOTE | 2018-06-06 11:24 | Progress Note ---
Subjective - Reason for Consult Consult date: 06/06/18 Reason for consult: Psychiatry Follow-up - Chief Complaint Chief complaint: "Hello" 52 female who presents to the emergency room with a past medical history HIV, diabetes, hypertension, and renal insufficiency. Today the patient is calm and cooperative during the assessment. She stated that she feel much better "mentally and physically." She stated that she would need a referral for outpatient psy services. She denies SI/HI's and AVH's. She denies any side effects of her medication. Mental Status Exam - Vital signs Last Vital Signs Temp 97.9 F 06/06/18 08:43 Pulse 78 06/06/18 08:43 Resp 18 06/06/18 08:43 BP 143/85 06/06/18 08:43 Pulse Ox 96 06/06/18 08:43 - Exam Narrative exam: MSE: Appearance: calm, cooperative Behavior: regular eye contact Speech: regular rate and tone Mood: "okay" Affect: congruent to mood Thought Process: circumstantial Thought Content: denies SI/HI's and AVH's Motor Activity: ambulatory Cognition: A/O x 3 Insight: fair Judgment: fair Assessment and Plan Impression: Unspecified Psychosis. Today the patient is calm and cooperative during the assessment. No overt psychosis with this patient. DDx: R/O Schizophrenia Recommendation/Plan: Continue Risperdal 0.5 mg PO HS mg HS. Discussed possible metabolic side effects of Risperdal with the patient. Dispo: The patient can follow up with [facility] for outpatient psy services. Will staff with Dr. Melanie Moreno.
--- NOTE | 2018-06-06 15:22 | Progress Note ---
Assessment and Plan Impression * Acute on chronic renal failure * Bipolar disorder * HIV disease * Hypertension * Diabetes * Obesity * Urinary tract infection Recommendations * Her serum creatinine is stable Renal function is back to baseline. * Off IV fluid * Renal ultrasound shows a left kidney to be smaller and a right nonobstructing kidney stone * It appears the patient does have a history of underlying chronic kidney disease. * Baseline creatinine however is not known. Serum creatinine was 2.7 in April 2018 * Recent rise in creatinine may be due to Bactrim which she was taking at the time of admission. She may have a prerenal component as well * Monitor fluid status and electrolytes closely * Avoid nephrotoxins * No objection to discharge from renal standpoint Subjective Date of service: 06/06/18 Principal diagnosis: wenckebach Interval history: resting in bed Objective - Exam Narrative Exam: General appearance: well-developed, well-nourished, appears stated age EENT: PERRL, mucous membranes moist Neck: no JVD, no thyromegaly, no carotid bruit, supple Respiratory: Present: Clear to Ascultation Cardiology: regular, normal heart rate, S1S2, no murmurs Gastrointestinal: normal, normoactive bowel sounds Integumentary: no rash, other (no edema) - Vital Signs Vital signs: Vital Signs - 12hr 06/06/18 06/06/18 06/06/18 03:38 04:00 08:43 Temperature 98.2 F 97.9 F Pulse Rate 78 78 Respiratory 12 18 Rate Blood Pressure 161/74 143/85 O2 Sat by Pulse 97 96 Oximetry 06/06/18 10:00 Temperature Pulse Rate 77 Respiratory Rate Blood Pressure O2 Sat by Pulse Oximetry - Lab 06/05/18 07:31 06/06/18 04:59 Most recent lab results Calcium 8.7 mg/dL (8.4-10.2) 06/06/18 04:59 Magnesium 1.80 mg/dL (1.7-2.3) 06/02/18 04:59 Medications & Allergies - Medications Allergies/Adverse Reactions: Allergies No Known Allergies Allergy (Verified 05/05/18 14:30) Home Medications: Home Medications Medication Instructions Recorded Confirmed Last Taken Type Atovaquone [Mepron] 750 mg PO DAILY 06/02/18 06/02/18 Unknown History Citalopram Hydrobromide 20 mg PO DAILY 06/02/18 06/02/18 Unknown History [Citalopram HBr] Dolutegravir [Tivicay] 50 mg PO DAILY 06/02/18 06/02/18 Unknown History Lisinopril [Prinivil] 5 mg PO DAILY 06/02/18 06/02/18 Unknown History Montelukast Sodium 10 mg PO DAILY 06/02/18 06/02/18 Unknown History Quetiapine Fumarate [QUEtiapine 400 mg PO BID 06/02/18 06/02/18 Unknown History Fumarate] Rilpivirine (Nf) [[place]ur[place] (Nf)] 25 mg PO QDAY 06/02/18 06/02/18 Unknown History Rosuvastatin (Nf) [Crestor] 5 mg PO QHS 06/02/18 06/02/18 Unknown History hydrALAZINE [Apresoline] 25 mg PO Q8HR 06/02/18 06/02/18 Unknown History lamiVUDine [Lamivudine] 150 mg PO DAILY 06/02/18 06/02/18 Unknown History Active Medications: Generic Name Dose Route Start Last Admin Trade Name Freq PRN Reason Stop Dose Admin Acetaminophen 650 mg 05/31/18 21:28 Tylenol PO Q4H PRN Pain MILD(1-3)/Fever >100.5/BROOKS Albuterol 2.5 mg 06/01/18 21:52 Proventil IH Q4HRT PRN Shortness Of Breath Aspirin 325 mg 06/01/18 10:00 06/06/18 10:29 Ecotrin PO 325 mg QDAY JAKE Administration Insulin Human Regular 0 units 05/31/18 22:00 06/06/18 15:02 Humulin R SUB-Q Not Given [facility] Protocol Levofloxacin 250 mg 06/01/18 11:00 06/06/18 10:29 Levaquin PO 06/07/18 10:01 250 mg Q24HR JAKE Administration Nitroglycerin 0.4 mg 05/31/18 21:44 Nitrostat SL .Q5MIN PRN Chest Pain Ondansetron HCl 4 mg 05/31/18 21:28 Zofran IV Q8H PRN Nausea And Vomiting Risperidone 0.5 mg 06/02/18 22:00 06/05/18 21:41 Risperdal PO 0.5 mg QHS JAKE Administration Sodium Chloride 10 ml 05/31/18 22:00 06/06/18 10:29 Sodium Chloride Flush Syringe 10 Ml IV 10 ml BID JAKE Administration Sodium Chloride 10 ml 05/31/18 21:28 Sodium Chloride Flush Syringe 10 Ml IV PRN PRN LINE FLUSH
[2018-06-06] MEDS: RisperDAL PO SCH (21:57)
[2018-06-07 05:59] LABS: Basophils % (Auto) 0.6 % (0.0-1.8); Eosinophils # (Auto) 0.2 K/mm3 (0.0-0.4); Eosinophils % (Auto) 2.7 % (0.0-4.3); Hematocrit 30.5 % (30.3-42.9); Hemoglobin 10.1 gm/dl (10.1-14.3); Lymphocytes # (Auto) 2.1 K/mm3 (1.2-5.4); Lymphocytes % (Auto) 34.6 % (13.4-35.0); Mean Corpuscular HGB Conc 33 % (30-34); Mean Corpuscular Volume 93 fl (79-97); Monocytes # (Auto) 0.7 K/mm3 (0.0-0.8); Platelet Count 235 K/mm3 (140-440); Red Blood Count 3.27 M/mm3 (3.65-5.03); Red Cell Distribution Width 16.9 % (13.2-15.2)
[2018-06-07 06:17] LABS: Calcium 8.9 mg/dL (8.4-10.2)
[2018-06-07] MEDS: HumuLIN R SUB-Q SCH ×4 (08:40→21:41)
[2018-06-07] MEDS: SODIUM CHLORIDE FLUSH SYRINGE 10 ML IV SCH ×2 (10:40→21:41)
[2018-06-07] MEDS: LEVAQUIN PO SCH (10:40)
[2018-06-07] MEDS: ECOTRIN PO SCH (10:40)
--- NOTE | 2018-06-07 10:58 | Discharge Summary ---
Providers - Providers Date of Admission: 05/31/18 21:28 Date of discharge: 06/10/18 Attending physician: SUDHIR NAPIER MD 05/31/18 Consult to Cardiac Rehabilitation [CONS] Routine Reason For Exam: Phase 1 05/31/18 19:27 Consult to Physician [CONS] Urgent Comment: Consulting Provider: HARSHA OVIEDO Physician Instructions: Reason For Exam: acute on chronic renal failure 06/01/18 13:03 psychiatry consult [Consult to Mental Health] [CONS] Routine Reason For Exam: schizophrenia Place consult to:: mental health Notified:: Regine MARCOS Phone number called:: [phone]. [phone] Was contact made?: Yes If yes, spoke with:: [facility] Time called:: 14:15 06/04/18 12:55 Physical Therapy Evaluation and Treat [CONS] Routine Comment: Reason For Exam: deconditioning 06/04/18 18:09 Consult to Case Management [CONS] Routine Services Needed at Discharge: Other Notified:: case management [facility] Reason for admission: Frequent falls, HIV/AIDS, heart block, DM Condition: Stable Pertinent studies: Head CT, echo, renal ultrasound Hospital course: Patient is a 52-year-old female with PMHx of HIV, DM type 2, bipolar, hypertension, renal insufficiency, schizophrenia and morbid obesity who was bro ught to the hospital after fall. Patient was unable to provide much medical history, she complained of pain all over her body mostly from the fall. No family was available, most of the history was obtained from patient's chart and from pt's nurse. Apparently patient was currently in a mental facility. Renal consult requested for a serum creatinine of 3.3. Review of records indicate that she had a serum creatinine approximately 2.7 last month. Patient however does not acknowledge any history of kidney disease. Patient was admitted to the floor and extensive workup was done and found to have Wenckebach second-degree AV block, acute on chronic renal failure, UTI, HIV-AIDS, hypertension, diabetes mellitus type 2, schizophrenia/psychosis. Patient was treated appropriately and showed improvement. Patient was seen by cardiology and recommended 30 day event monitor as an outpatient. Patient scheduled to see cardiology within a week. Discussed with the patient. Nephrology was consulted and cleared for discharge with outpatient follow-up. UTI was treated with antibiotic and resolved. Patient's advised to continue her HIV, psych and diabetic medications. PT evaluated the patient and recommended home health PT but daughter refused to take the patient home and discharged to Home Care. Disposition: DC-[id number] TO HOME OR SELFCARE Time spent for discharge: 32 minutes - Discharge Diagnoses (1) Acute on chronic renal insufficiency Status: Acute (2) Frequent falls Status: Acute (3) Generalized weakness Status: Acute (4) Hyperkalemia Status: Acute (5) Psychiatric disorder Status: Acute (6) Psychosis Status: Chronic Qualifiers: Psychosis type: schizophrenia (7) Schizophrenia Status: Chronic (8) UTI (urinary tract infection) Status: Acute (9) Wenckebach second degree AV block Status: Acute (10) Diabetes Status: Chronic Qualifiers: Diabetes mellitus type: type 2 Diabetes mellitus manager long term care insulin use: without manager long term care use Diabetes mellitus complication status: without complic ation Qualified Code(s): E11.9 - Type 2 diabetes mellitus without complications Core Measure Documentation - Palliative Care Palliative Care/ Comfort Measures: Not Applicable - Core Measures Any of the following diagnoses?: none Exam - Physical Exam Narrative exam: Not in cardiopulmonary distress. The patient is obese. Vital signs as documented. Head exam is unremarkable. No scleral icterus . Neck is without jugular venous distension, thyromegaly, or carotid bruits. Lungs are clear to auscultation. Cardiac exam reveals regular rate and Rhythm. First and second heart sounds normal. No murmurs, rubs or gallops. Abdominal exam reveals normal bowel sounds, no masses, no organomegaly and no aortic enlargement. Extremities are nonedematous and both femoral and pedal pulses are normal. MAYONNAISE MIXER: Alert and oriented 3. No focal weakness. Skin; whitish lesions around the hair lines. - Constitutional Vitals: Temp Pulse Resp BP Pulse Ox 98.2 F 84 20 149/81 96 06/07/18 09:22 06/07/18 09:22 06/07/18 09:22 06/07/18 09:22 06/07/18 09:22 Plan Activity: no restrictions Weight Bearing Status: Full Weight Bearing Diet: low salt, diabetic, renal Additional Instructions: Patient advised to have f/u with her ID. mental health F/U Follow up with: [facility] [Outside] - 7 Days HOLLEY APARICIO MD [Staff Physician] - 7 Days MARLA CHAU MD [Staff Physician] - 7 Days LEFLORE MANDO NOEL MD [Primary Care Provider] - 3-5 Days Prescriptions: risperiDONE [RisperDAL] 0.5 mg PO QHS #20 tablet cephALEXin [Keflex] 500 mg PO Q8HR #15 cap
--- NOTE | 2018-06-07 16:09 | Progress Note ---
Assessment and Plan Impression * JOSE vs chronic kidney disease --Renal ultrasound: shows a left kidney to be smaller and a right nonobstructing kidney stone * Urinary tract infection * Bipolar disorder * HIV disease * Hypertension * Type II diabetes mellitus Recommendations * Renal function is stable - patient likely with CKD * Abx per primary team * AntiHTN meds on hold * Monitor fluid status and electrolytes closely * Avoid nephrotoxins * No objection to discharge from renal standpoint Subjective Date of service: 06/07/18 Principal diagnosis: wenckebach Interval history: Patient has no complaints. She states that she is feeling better. Objective - Vital Signs Vital signs: Vital Signs - 12hr 06/07/18 06/07/18 06/07/18 09:22 10:00 12:21 Temperature 98.2 F Pulse Rate 84 76 82 Respiratory 20 20 Rate Blood Pressure 149/79 Blood Pressure 149/81 [Right] O2 Sat by Pulse 96 98 100 Oximetry 06/07/18 12:22 Temperature 97.6 F Pulse Rate Respiratory Rate Blood Pressure Blood Pressure [Right] O2 Sat by Pulse Oximetry - General Appearance General appearance: well-developed, well-nourished EENT: ATNC Respiratory: Present: Clear to Ascultation Cardiology: regular, S1S2 Gastrointestinal: normal, no tenderness, no distended Integumentary: no rash, warm and dry Neurologic: no focal deficit Musculoskeletal: other (no edema) Psychiatric: cooperative - Lab 06/07/18 05:42 06/07/18 05:42 Most recent lab results Calcium 8.9 mg/dL (8.4-10.2) 06/07/18 05:42 Magnesium 1.80 mg/dL (1.7-2.3) 06/02/18 04:59 Medications & Allergies - Medications Allergies/Adverse Reactions: Allergies No Known Allergies Allergy (Verified 05/05/18 14:30) Home Medications: Home Medications Medication Instructions Recorded Confirmed Last Taken Type Atovaquone [Mepron] 750 mg PO DAILY 06/02/18 06/02/18 Unknown History Citalopram Hydrobromide 20 mg PO DAILY 06/02/18 06/02/18 Unknown History [Citalopram HBr] Dolutegravir [Tivicay] 50 mg PO DAILY 06/02/18 06/02/18 Unknown History Lisinopril [Prinivil] 5 mg PO DAILY 06/02/18 06/02/18 Unknown History Montelukast Sodium 10 mg PO DAILY 06/02/18 06/02/18 Unknown History Quetiapine Fumarate [QUEtiapine 400 mg PO BID 06/02/18 06/02/18 Unknown History Fumarate] Rilpivirine (Nf) [Edurant (Nf)] 25 mg PO QDAY 06/02/18 06/02/18 Unknown History Rosuvastatin (Nf) [Crestor] 5 mg PO QHS 06/02/18 06/02/18 Unknown History hydrALAZINE [Apresoline TAB] 25 mg PO Q8HR 06/02/18 06/02/18 Unknown History lamiVUDine [Lamivudine] 150 mg PO DAILY 06/02/18 06/02/18 Unknown History cephALEXin [Keflex] 500 mg PO Q8HR #15 cap 06/07/18 Unknown Rx risperiDONE [RisperDAL] 0.5 mg PO QHS #20 tablet 06/07/18 Unknown Rx Active Medications: Generic Name Dose Route Start Last Admin Trade Name Freq PRN Reason Stop Dose Admin Acetaminophen 650 mg 05/31/18 21:28 Tylenol PO Q4H PRN Pain MILD(1-3)/Fever >100.5/BROOKS Albuterol 2.5 mg 06/01/18 21:52 Proventil IH Q4HRT PRN Shortness Of Breath Aspirin 325 mg 06/01/18 10:00 06/07/18 10:40 Ecotrin PO 325 mg QDAY JAKE Administration Insulin Human Regular 0 units 05/31/18 22:00 06/07/18 12:41 Humulin R SUB-Q Not Given ACHS [facility] Protocol Nitroglycerin 0.4 mg 05/31/18 21:44 Nitrostat SL .Q5MIN PRN Chest Pain Ondansetron HCl 4 mg 05/31/18 21:28 Zofran IV Q8H PRN Nausea And Vomiting Risperidone 0.5 mg 06/02/18 22:00 06/06/18 21:57 Risperdal PO 0.5 mg QHS JAKE Administration Sodium Chloride 10 ml 05/31/18 22:00 06/07/18 10:40 Sodium Chloride Flush Syringe 10 Ml IV 10 ml BID JAKE Administration Sodium Chloride 10 ml 05/31/18 21:28 Sodium Chloride Flush Syringe 10 Ml IV PRN PRN LINE FLUSH
--- NOTE | 2018-06-07 17:17 | Progress Note ---
Assessment and Plan Assessment and plan: Wenkebach second-degree AV block. Echo reviewed - EF 55-60%, mild LVH, no significant valvular abnormalities. Thyroid profile WNL. Consider 30 day event monitor as OP. Frequent falls. ?Etiology likely secondary to above Acute on chronic kidney disease. Nephrology following. Renal ultrasound r eveals no obstruction. Baseline creatinine however is not known. As noted above her serum creatinine was 2.7 in April 2018 UTI. IV antibiotics and follow-up blood and urine cultures. HIV disease. Consider ID consultation. Hypertension. Resume antihypertensive medications. Diabetes mellitus type 2. Continue Accu-Cheks and sliding scale regular insulin Schizophrenia/psychosis. Psychiatry following Morbid obesity. Disposition. Patient was discharged but daughter refused to take her. will transfer to medical floor. - Patient Problems (1) Acute on chronic renal insufficiency Current Visit: Yes Status: Acute (2) Frequent falls Current Visit: Yes Status: Acute (3) Generalized weakness Current Visit: Yes Status: Acute (4) Hyperkalemia Current Visit: Yes Status: Acute (5) Psychiatric disorder Current Visit: Yes Status: Acute (6) Psychosis Current Visit: Yes Status: Acute (7) Schizophrenia Current Visit: Yes Status: Acute (8) UTI (urinary tract infection) Current Visit: Yes Status: Acute (9) Wenckebach second degree AV block Current Visit: Yes Status: Acute (10) Diabetes Current Visit: Yes Status: Chronic History Interval history: Patient was seen and evaluated this morning, patient didn't have any complaints. Hospitalist Physical - Physical exam Narrative exam: Not in cardiopulmonary distress. The patient is obese. Vital signs as documented. Head exam is unremarkable. No scleral icterus . Neck is without jugular venous distension, thyromegaly, or carotid bruits. Lungs are clear to auscultation. Cardiac exam reveals regular rate and Rhythm. First and second heart sounds normal. No murmurs, rubs or gallops. Abdominal exam reveals normal bowel sounds, no masses, no organomegaly and no aortic enlargement. Extremities are nonedematous and both femoral and pedal pulses are normal. HEAD BANQUET WAITER/WAITRESS: Alert and oriented 3. No focal weakness. Skin; whitish lesions around the hair lines. - Constitutional Vitals: Temp Pulse Resp BP Pulse Ox 97.5 F L 86 20 185/96 100 06/07/18 16:25 06/07/18 16:23 06/07/18 16:23 06/07/18 16:23 06/07/18 16:23 General appearance: Present: no acute distress Results - Labs CBC & Chem 7: 06/07/18 05:42 06/07/18 05:42 Labs: Laboratory Last Values WBC 6.1 K/mm3 (4.5-11.0) 06/07/18 05:42 RBC 3.27 M/mm3 (3.65-5.03) L 06/07/18 05:42 Hgb 10.1 gm/dl (10.1-14.3) 06/07/18 05:42 Hct 30.5 % (30.3-42.9) 06/07/18 05:42 MCV 93 fl (79-97) 06/07/18 05:42 MCH 31 pg (28-32) 06/07/18 05:42 MCHC 33 % (30-34) 06/07/18 05:42 RDW 16.9 % (13.2-15.2) H 06/07/18 05:42 Plt Count 235 K/mm3 (140-440) 06/07/18 05:42 Lymph % (Auto) 34.6 % (13.4-35.0) 06/07/18 05:42 Dixon % (Auto) 12.0 % (0.0-7.3) H 06/07/18 05:42 Eos % (Auto) 2.7 % (0.0-4.3) 06/07/18 05:42 Baso % (Auto) 0.6 % (0.0-1.8) 06/07/18 05:42 Lymph # 2.1 K/mm3 (1.2-5.4) 06/07/18 05:42 Dixon # 0.7 K/mm3 (0.0-0.8) 06/07/18 05:42 Eos # 0.2 K/mm3 (0.0-0.4) 06/07/18 05:42 Baso # 0.0 K/mm3 (0.0-0.1) 06/07/18 05:42 Seg Neutrophils % 50.1 % (40.0-70.0) 06/07/18 05:42 Seg Neutrophils # 3.0 K/mm3 (1.8-7.7) 06/07/18 05:42 Sodium 138 mmol/L (137-145) 06/07/18 05:42 Potassium 5.0 mmol/L (3.6-5.0) 06/07/18 05:42 Chloride 105.8 mmol/L (98-107) 06/07/18 05:42 Carbon Dioxide 21 mmol/L (22-30) L 06/07/18 05:42 Anion Gap 16 mmol/L 06/07/18 05:42 BUN 36 mg/dL (7-17) H 06/07/18 05:42 Creatinine 2.8 mg/dL (0.7-1.2) H 06/07/18 05:42 Estimated GFR 21 ml/min 06/07/18 05:42 BUN/Creatinine Ratio 13 % 06/07/18 05:42 Glucose 92 mg/dL (65-100) 06/07/18 05:42 POC Glucose 127 (70-105) H 06/07/18 11:38 Calcium 8.9 mg/dL (8.4-10.2) 06/07/18 05:42 Magnesium 1.80 mg/dL (1.7-2.3) 06/02/18 04:59 Total Creatine Kinase 256 units/L (30-135) H 05/31/18 17:56 CK-MB (CK-2) 7.0 ng/mL (0.0-4.0) H 05/31/18 17:56 CK-MB (CK-2) Rel Index 2.7 (0-4) 05/31/18 17:56 Troponin T 0.030 ng/mL (0.00-0.029) H D 06/01/18 11:51 Triglycerides 150 mg/dL (2-149) H 06/01/18 11:51 Cholesterol 204 mg/dL (50-199) H 06/01/18 11:51 LDL Cholesterol Direct 167 mg/dL (50-130) H 06/01/18 11:51 HDL Cholesterol 32 mg/dL (40-59) L 06/01/18 11:51 Cholesterol/HDL Ratio 6.37 % 06/01/18 11:51 TSH 1.750 mlU/mL (0.270-4.200) 06/02/18 13:29 Free T4 1.03 ng/dL (0.76-1.46) 06/02/18 13:29 Urine Color Yellow (Yellow) 05/31/18 19:32 Urine Turbidity Cloudy (Clear) 05/31/18 19:32 Urine pH 6.0 (5.0-7.0) 05/31/18 19:32 Ur Specific [place] 1.009 (1.003-1.030) 05/31/18 19:32 Urine Protein 100 mg/dl mg/dL (Negative) 05/31/18 19:32 Urine Glucose (UA) Neg mg/dL (Negative) 05/31/18 19:32 Urine Ketones Neg mg/dL (Negative) 05/31/18 19:32 Urine Blood Sm (Negative) 05/31/18 19:32 Urine Nitrite Neg (Negative) 05/31/18 19:32 Urine Bilirubin Neg (Negative) 05/31/18 19:32 Urine Urobilinogen < 2.0 mg/dL (<2.0) 05/31/18 19:32 Ur Leukocyte Esterase Lg (Negative) 05/31/18 19:32 Urine WBC (Auto) > 182.0 /HPF (0.0-6.0) H 05/31/18 19:32 Urine RBC (Auto) 83.0 /HPF (0.0-6.0) 05/31/18 19:32 U Epithel Cells (Auto) 4.0 /HPF (0-13.0) 05/31/18 19:32 Urine Bacteria (Auto) 1+ /HPF (Negative) 05/31/18 19:32 Urine WBC Clumps 3+ /HPF 05/31/18 19:32 Urine Yeast (Budding) 2+ /HPF 05/31/18 19:32 Urine Eosinophils >5% (None Seen) 06/01/18 14:30 Urine Opiates Screen Presumptive negative 05/31/18 19:32 Urine Methadone Screen Presumptive negative 05/31/18 19:32 Ur Barbiturates Screen Presumptive negative 05/31/18 19:32 Ur Phencyclidine Scrn Presumptive negative 05/31/18 19:32 Ur Amphetamines Screen Presumptive negative 05/31/18 19:32 U Benzodiazepines Scrn Presumptive negative 05/31/18 19:32 Urine Cocaine Screen Presumptive negative 05/31/18 19:32 U Marijuana (THC) Screen Presumptive negative 05/31/18 19:32 Drugs of Abuse Note Disclamer 05/31/18 19:32 Plasma/Serum Alcohol < 0.01 % (0-0.07) 05/31/18 17:56 Active Medications - Current Medications Current Medications: Generic Name Dose Route Start Last Admin Trade Name Freq PRN Reason Stop Dose Admin Acetaminophen 650 mg 05/31/18 21:28 Tylenol PO Q4H PRN Pain MILD(1-3)/Fever >100.5/BROOKS Albuterol 2.5 mg 06/01/18 21:52 Proventil IH Q4HRT PRN Shortness Of Breath Aspirin 325 mg 06/01/18 10:00 06/07/18 10:40 Ecotrin PO 325 mg QDAY JAKE Administration Insulin Human Regular 0 units 05/31/18 22:00 06/07/18 16:59 Humulin R SUB-Q Not Given ACHS JAKE Protocol Nitroglycerin 0.4 mg 05/31/18 21:44 Nitrostat SL .Q5MIN PRN Chest Pain Ondansetron HCl 4 mg 05/31/18 21:28 Zofran IV Q8H PRN Nausea And Vomiting Risperidone 0.5 mg 06/02/18 22:00 06/06/18 21:57 Risperdal PO 0.5 mg QHS JAKE Administration Sodium Chloride 10 ml 05/31/18 22:00 06/07/18 10:40 Sodium Chloride Flush Syringe 10 Ml IV 10 ml BID JAKE Administration Sodium Chloride 10 ml 05/31/18 21:28 Sodium Chloride Flush Syringe 10 Ml IV PRN PRN LINE FLUSH Nutrition/Malnutrition Assess - Dietary Evaluation Nutrition/Malnutrition Findings: Nutrition Notes Start: 06/07/18 14:53 Freq: Status: Active Protocol: Document 06/07/18 14:54 LM (Rec: 06/07/18 14:55 LM [id number]) Co-Sign 06/07/18 14:54 LP Nutrition Notes Need for Assessment generated from: LOS Initial or Follow up Brief Note Subjective/Other Information Screen for LOS. 100% intakes in chart. BMI of 37.3. Nutrition Intervention Revisit per MD consult or patient Sign Off request:
[2018-06-07] MEDS: RisperDAL PO SCH (21:41)
[2018-06-08] MEDS: HumuLIN R SUB-Q SCH ×4 (09:13→22:54)
--- NOTE | 2018-06-08 10:36 | Progress Note ---
Assessment and Plan Impression * Acute on chronic renal failure * Bipolar disorder * HIV disease * Hypertension * Diabetes * Obesity * Urinary tract infection Recommendations * Her serum creatinine is stable Renal function is back to baseline. * Off IV fluid * Renal ultrasound shows a left kidney to be smaller and a right nonobstructing kidney stone * It appears the patient does have a history of underlying chronic kidney disease. * Baseline creatinine however is not known. Serum creatinine was 2.7 in April 2018 * Recent rise in creatinine may be due to Bactrim which she was taking at the time of admission. She may have a prerenal component as well * Monitor fluid status and electrolytes closely * Avoid nephrotoxins * No objection to discharge from renal standpoint Subjective Date of service: 06/08/18 Principal diagnosis: wenckebach Interval history: resting in bed Objective - Exam Narrative Exam: General appearance: well-developed, well-nourished, appears stated age EENT: PERRL, mucous membranes moist Neck: no JVD, no thyromegaly, no carotid bruit, supple Respiratory: Present: Clear to Ascultation Cardiology: regular, normal heart rate, S1S2, no murmurs Gastrointestinal: normal, normoactive bowel sounds Integumentary: no rash, other (no edema) - Vital Signs Vital signs: Vital Signs - 12hr 06/08/18 06/08/18 00:07 05:36 Temperature 98.4 F 98.1 F Pulse Rate 85 87 Respiratory 20 20 Rate Blood Pressure 147/78 140/78 O2 Sat by Pulse 98 98 Oximetry - Lab 06/07/18 05:42 06/07/18 05:42 Most recent lab results Calcium 8.9 mg/dL (8.4-10.2) 06/07/18 05:42 Magnesium 1.80 mg/dL (1.7-2.3) 06/02/18 04:59 Medications & Allergies - Medications Allergies/Adverse Reactions: Allergies No Known Allergies Allergy (Verified 05/05/18 14:30) Home Medications: Home Medications Medication Instructions Recorded Confirmed Last Taken Type Atovaquone [Mepron] 750 mg PO DAILY 06/02/18 06/02/18 Unknown History Citalopram Hydrobromide 20 mg PO DAILY 06/02/18 06/02/18 Unknown History [Citalopram HBr] Dolutegravir [Tivicay] 50 mg PO DAILY 06/02/18 06/02/18 Unknown History Lisinopril [Prinivil] 5 mg PO DAILY 06/02/18 06/02/18 Unknown History Montelukast Sodium 10 mg PO DAILY 06/02/18 06/02/18 Unknown History Quetiapine Fumarate [QUEtiapine 400 mg PO BID 06/02/18 06/02/18 Unknown History Fumarate] Rilpivirine (Nf) [Edurant (Nf)] 25 mg PO QDAY 06/02/18 06/02/18 Unknown History Rosuvastatin (Nf) [Crestor] 5 mg PO QHS 06/02/18 06/02/18 Unknown History hydrALAZINE [Apresoline TAB] 25 mg PO Q8HR 06/02/18 06/02/18 Unknown History lamiVUDine [Lamivudine] 150 mg PO DAILY 06/02/18 06/02/18 Unknown History cephALEXin [Keflex] 500 mg PO Q8HR #15 cap 06/07/18 Unknown Rx risperiDONE [RisperDAL] 0.5 mg PO QHS #20 tablet 06/07/18 Unknown Rx Active Medications: Generic Name Dose Route Start Last Admin Trade Name Freq PRN Reason Stop Dose Admin Acetaminophen 650 mg 05/31/18 21:28 Tylenol PO Q4H PRN Pain MILD(1-3)/Fever >100.5/BROOKS Albuterol 2.5 mg 06/01/18 21:52 Proventil IH Q4HRT PRN Shortness Of Breath Aspirin 325 mg 06/01/18 10:00 06/07/18 10:40 Ecotrin PO 325 mg QDAY JAKE Administration Insulin Human Regular 0 units 05/31/18 22:00 06/08/18 09:13 Humulin R SUB-Q Not Given ACHS JAKE Protocol Nitroglycerin 0.4 mg 05/31/18 21:44 Nitrostat SL .Q5MIN PRN Chest Pain Ondansetron HCl 4 mg 05/31/18 21:28 Zofran IV Q8H PRN Nausea And Vomiting Risperidone 0.5 mg 06/02/18 22:00 06/07/18 21:41 Risperdal PO 0.5 mg QHS JAKE Administration Sodium Chloride 10 ml 05/31/18 22:00 06/07/18 21:41 Sodium Chloride Flush Syringe 10 Ml IV 10 ml BID JAKE Administration Sodium Chloride 10 ml 05/31/18 21:28 Sodium Chloride Flush Syringe 10 Ml IV PRN PRN LINE FLUSH
[2018-06-08] MEDS: ECOTRIN PO SCH (12:20)
[2018-06-08] MEDS: SODIUM CHLORIDE FLUSH SYRINGE 10 ML IV SCH ×2 (12:20→22:54)
--- NOTE | 2018-06-08 14:17 | Progress Note ---
Assessment and Plan Assessment and plan: Wenkebach second-degree AV block. Echo reviewed - EF 55-60%, mild LVH, no significant valvular abnormalities. Thyroid profile WNL. Consider 30 day event monitor as OP. Frequent falls. ?Etiology likely secondary to above Acute on chronic kidney disease. Nephrology following. Renal ultrasound r eveals no obstruction. Baseline creatinine however is not known. As noted above her serum creatinine was 2.7 in April 2018 UTI. IV antibiotics and follow-up blood and urine cultures. HIV disease. Consider ID consultation. Hypertension. Resume antihypertensive medications. Diabetes mellitus type 2. Continue Accu-Cheks and sliding scale regular insulin Schizophrenia/psychosis. Psychiatry following Morbid obesity. Disposition. Patient was discharged but daughter refused to take her. CM and SW aware of it and working on it. - Patient Problems (1) Acute on chronic renal insufficiency Current Visit: Yes Status: Acute (2) Frequent falls Current Visit: Yes Status: Acute (3) Generalized weakness Current Visit: Yes Status: Acute (4) Hyperkalemia Current Visit: Yes Status: Acute (5) Psychiatric disorder Current Visit: Yes Status: Acute (6) Psychosis Current Visit: Yes Status: Acute (7) Schizophrenia Current Visit: Yes Status: Acute (8) UTI (urinary tract infection) Current Visit: Yes Status: Acute (9) Wenckebach second degree AV block Current Visit: Yes Status: Acute (10) Diabetes Current Visit: Yes Status: Chronic History Interval history: Patient was seen and evaluated this morning, patient didn't have any complaints. Hospitalist Physical - Physical exam Narrative exam: Not in cardiopulmonary distress. The patient is obese. Vital signs as documented. Head exam is unremarkable. No scleral icterus . Neck is without jugular venous distension, thyromegaly, or carotid bruits. Lungs are clear to auscultation. Cardiac exam reveals regular rate and Rhythm. First and second heart sounds normal. No murmurs, rubs or gallops. Abdominal exam reveals normal bowel sounds, no masses, no organomegaly and no aortic enlargement. Extremities are nonedematous and both femoral and pedal pulses are normal. 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 No focal weakness. Skin; whitish lesions around the hair lines. - Constitutional Vitals: Temp Pulse Resp BP Pulse Ox 98.5 F 88 22 148/67 99 06/08/18 11:33 06/08/18 11:33 06/08/18 11:33 06/08/18 11:33 06/08/18 11:33 General appearance: Present: no acute distress Results - Labs CBC & Chem 7: 06/07/18 05:42 06/07/18 05:42 Labs: Laboratory Last Values WBC 6.1 K/mm3 (4.5-11.0) 06/07/18 05:42 RBC 3.27 M/mm3 (3.65-5.03) L 06/07/18 05:42 Hgb 10.1 gm/dl (10.1-14.3) 06/07/18 05:42 Hct 30.5 % (30.3-42.9) 06/07/18 05:42 MCV 93 fl (79-97) 06/07/18 05:42 MCH 31 pg (28-32) 06/07/18 05:42 MCHC 33 % (30-34) 06/07/18 05:42 RDW 16.9 % (13.2-15.2) H 06/07/18 05:42 Plt Count 235 K/mm3 (140-440) 06/07/18 05:42 Lymph % (Auto) 34.6 % (13.4-35.0) 06/07/18 05:42 [place] % (Auto) 12.0 % (0.0-7.3) H 06/07/18 05:42 Eos % (Auto) 2.7 % (0.0-4.3) 06/07/18 05:42 Baso % (Auto) 0.6 % (0.0-1.8) 06/07/18 05:42 Lymph # 2.1 K/mm3 (1.2-5.4) 06/07/18 05:42 [place] # 0.7 K/mm3 (0.0-0.8) 06/07/18 05:42 Eos # 0.2 K/mm3 (0.0-0.4) 06/07/18 05:42 Baso # 0.0 K/mm3 (0.0-0.1) 06/07/18 05:42 Seg Neutrophils % 50.1 % (40.0-70.0) 06/07/18 05:42 Seg Neutrophils # 3.0 K/mm3 (1.8-7.7) 06/07/18 05:42 Sodium 138 mmol/L (137-145) 06/07/18 05:42 Potassium 5.0 mmol/L (3.6-5.0) 06/07/18 05:42 Chloride 105.8 mmol/L (98-107) 06/07/18 05:42 Carbon Dioxide 21 mmol/L (22-30) L 06/07/18 05:42 Anion Gap 16 mmol/L 06/07/18 05:42 BUN 36 mg/dL (7-17) H 06/07/18 05:42 Creatinine 2.8 mg/dL (0.7-1.2) H 06/07/18 05:42 Estimated GFR 21 ml/min 06/07/18 05:42 BUN/Creatinine Ratio 13 % 06/07/18 05:42 Glucose 92 mg/dL (65-100) 06/07/18 05:42 POC Glucose 99 (70-105) 06/08/18 11:35 Calcium 8.9 mg/dL (8.4-10.2) 06/07/18 05:42 Magnesium 1.80 mg/dL (1.7-2.3) 06/02/18 04:59 Total Creatine Kinase 256 units/L (30-135) H 05/31/18 17:56 CK-MB (CK-2) 7.0 ng/mL (0.0-4.0) H 05/31/18 17:56 CK-MB (CK-2) Rel Index 2.7 (0-4) 05/31/18 17:56 Troponin T 0.030 ng/mL (0.00-0.029) H D 06/01/18 11:51 Triglycerides 150 mg/dL (2-149) H 06/01/18 11:51 Cholesterol 204 mg/dL (50-199) H 06/01/18 11:51 LDL Cholesterol Direct 167 mg/dL (50-130) H 06/01/18 11:51 HDL Cholesterol 32 mg/dL (40-59) L 06/01/18 11:51 Cholesterol/HDL Ratio 6.37 % 06/01/18 11:51 TSH 1.750 mlU/mL (0.270-4.200) 06/02/18 13:29 Free T4 1.03 ng/dL (0.76-1.46) 06/02/18 13:29 Urine Color Yellow (Yellow) 05/31/18 19:32 Urine Turbidity Cloudy (Clear) 05/31/18 19:32 Urine pH 6.0 (5.0-7.0) 05/31/18 19:32 Ur Specific [place] 1.009 (1.003-1.030) 05/31/18 19:32 Urine Protein 100 mg/dl mg/dL (Negative) 05/31/18 19:32 Urine Glucose (UA) Neg mg/dL (Negative) 05/31/18 19:32 Urine Ketones Neg mg/dL (Negative) 05/31/18 19:32 Urine Blood Sm (Negative) 05/31/18 19:32 Urine Nitrite Neg (Negative) 05/31/18 19:32 Urine Bilirubin Neg (Negative) 05/31/18 19:32 Urine Urobilinogen < 2.0 mg/dL (<2.0) 05/31/18 19:32 Ur Leukocyte Esterase Lg (Negative) 05/31/18 19:32 Urine WBC (Auto) > 182.0 /HPF (0.0-6.0) H 05/31/18 19:32 Urine RBC (Auto) 83.0 /HPF (0.0-6.0) 05/31/18 19:32 U Epithel Cells (Auto) 4.0 /HPF (0-13.0) 05/31/18 19:32 Urine Bacteria (Auto) 1+ /HPF (Negative) 05/31/18 19:32 Urine WBC Clumps 3+ /HPF 05/31/18 19:32 Urine Yeast (Budding) 2+ /HPF 05/31/18 19:32 Urine Eosinophils >5% (None Seen) 06/01/18 14:30 Urine Opiates Screen Presumptive negative 05/31/18 19:32 Urine Methadone Screen Presumptive negative 05/31/18 19:32 Ur Barbiturates Screen Presumptive negative 05/31/18 19:32 Ur Phencyclidine Scrn Presumptive negative 05/31/18 19:32 Ur Amphetamines Screen Presumptive negative 05/31/18 19:32 U Benzodiazepines Scrn Presumptive negative 05/31/18 19:32 Urine Cocaine Screen Presumptive negative 05/31/18 19:32 U Marijuana (THC) Screen Presumptive negative 05/31/18 19:32 Drugs of Abuse Note Disclamer 05/31/18 19:32 Plasma/Serum Alcohol < 0.01 % (0-0.07) 05/31/18 17:56 Active Medications - Current Medications Current Medications: Generic Name Dose Route Start Last Admin Trade Name Freq PRN Reason Stop Dose Admin Acetaminophen 650 mg 05/31/18 21:28 Tylenol PO Q4H PRN Pain MILD(1-3)/Fever >100.5/BROOKS Albuterol 2.5 mg 06/01/18 21:52 Proventil IH Q4HRT PRN Shortness Of Breath Aspirin 325 mg 06/01/18 10:00 06/08/18 12:20 Ecotrin PO 325 mg QDAY JAKE Administration Insulin Human Regular 0 units 05/31/18 22:00 06/08/18 12:28 Humulin R SUB-Q Not Given ACHS COUNT INCLUDES [facility] Protocol Nitroglycerin 0.4 mg 05/31/18 21:44 Nitrostat SL .Q5MIN PRN Chest Pain Ondansetron HCl 4 mg 05/31/18 21:28 Zofran IV Q8H PRN Nausea And Vomiting Risperidone 0.5 mg 06/02/18 22:00 06/07/18 21:41 Risperdal PO 0.5 mg QHS JAKE Administration Sodium Chloride 10 ml 05/31/18 22:00 06/08/18 12:20 Sodium Chloride Flush Syringe 10 Ml IV 10 ml BID JAKE Administration Sodium Chloride 10 ml 05/31/18 21:28 Sodium Chloride Flush Syringe 10 Ml IV PRN PRN LINE FLUSH Nutrition/Malnutrition Assess - Dietary Evaluation Nutrition/Malnutrition Findings: Nutrition Notes Start: 06/07/18 14:53 Freq: Status: Active Protocol: Document 06/07/18 14:54 LM (Rec: 06/07/18 14:55 LM [id number]) Co-Sign 06/07/18 14:54 LP Nutrition Notes Need for Assessment generated from: LOS Initial or Follow up Brief Note Subjective/Other Information Screen for LOS. 100% intakes in chart. BMI of 37.3. Nutrition Intervention Revisit per MD consult or patient Sign Off request:
[2018-06-08] MEDS: RisperDAL PO SCH (22:53)
[2018-06-09 05:39] LABS: Calcium 8.2 mg/dL (8.4-10.2)
[2018-06-09] MEDS: HumuLIN R SUB-Q SCH ×3 (09:06→21:08)
[2018-06-09] MEDS: ECOTRIN PO SCH (11:44)
--- NOTE | 2018-06-09 12:10 | Progress Note ---
Assessment and Plan Impression * Acute on chronic renal failure * Bipolar disorder * HIV disease * Hypertension * Diabetes * Obesity * Urinary tract infection Recommendations * Her serum creatinine is sligthly elevated, follow up UA * gentle IV fluid * Renal ultrasound shows a left kidney to be smaller and a right nonobstructing kidney stone * It appears the patient does have a history of underlying chronic kidney disease. * Baseline creatinine however is not known. Serum creatinine was 2.7 in April 2018 * Recent rise in creatinine may be due to Bactrim which she was taking at the time of admission. She may have a prerenal component as well * Monitor fluid status and electrolytes closely * Avoid nephrotoxins * No objection to discharge from renal standpoint Subjective Date of service: 06/09/18 Principal diagnosis: wenckebach Interval history: resting in bed Objective - Exam Narrative Exam: General appearance: well-developed, well-nourished, appears stated age EENT: PERRL, mucous membranes moist Neck: no JVD, no thyromegaly, no carotid bruit, supple Respiratory: Present: Clear to Ascultation Cardiology: regular, normal heart rate, S1S2, no murmurs Gastrointestinal: normal, normoactive bowel sounds Integumentary: no rash, other (no edema) - Vital Signs Vital signs: Vital Signs - 12hr 06/09/18 06/09/18 05:40 12:06 Temperature 98.7 F 97.8 F Pulse Rate 95 H Respiratory 20 20 Rate Blood Pressure 138/77 169/96 O2 Sat by Pulse 96 Oximetry - Lab 06/07/18 05:42 06/09/18 04:52 Most recent lab results Calcium 8.2 mg/dL (8.4-10.2) L 06/09/18 04:52 Magnesium 1.80 mg/dL (1.7-2.3) 06/02/18 04:59 Medications & Allergies - Medications Allergies/Adverse Reactions: Allergies No Known Allergies Allergy (Verified 05/05/18 14:30) Home Medications: Home Medications Medication Instructions Recorded Confirmed Last Taken Type Atovaquone [Mepron] 750 mg PO DAILY 06/02/18 06/02/18 Unknown History Citalopram Hydrobromide 20 mg PO DAILY 06/02/18 06/02/18 Unknown History [Citalopram HBr] Dolutegravir [Tivicay] 50 mg PO DAILY 06/02/18 06/02/18 Unknown History Lisinopril [Prinivil] 5 mg PO DAILY 06/02/18 06/02/18 Unknown History Montelukast Sodium 10 mg PO DAILY 06/02/18 06/02/18 Unknown History Quetiapine Fumarate [QUEtiapine 400 mg PO BID 06/02/18 06/02/18 Unknown History Fumarate] Rilpivirine (Nf) [Edurant (Nf)] 25 mg PO QDAY 06/02/18 06/02/18 Unknown History Rosuvastatin (Nf) [Crestor] 5 mg PO QHS 06/02/18 06/02/18 Unknown History hydrALAZINE [Apresoline TAB] 25 mg PO Q8HR 06/02/18 06/02/18 Unknown History lamiVUDine [Lamivudine] 150 mg PO DAILY 06/02/18 06/02/18 Unknown History cephALEXin [Keflex] 500 mg PO Q8HR #15 cap 06/07/18 Unknown Rx risperiDONE [RisperDAL] 0.5 mg PO QHS #20 tablet 06/07/18 Unknown Rx Active Medications: Generic Name Dose Route Start Last Admin Trade Name Freq PRN Reason Stop Dose Admin Acetaminophen 650 mg 05/31/18 21:28 Tylenol PO Q4H PRN Pain MILD(1-3)/Fever >100.5/BROOKS Albuterol 2.5 mg 06/01/18 21:52 Proventil IH Q4HRT PRN Shortness Of Breath Aspirin 325 mg 06/01/18 10:00 06/09/18 11:44 Ecotrin PO 325 mg QDAY JAKE Administration Insulin Human Regular 0 units 05/31/18 22:00 06/09/18 09:06 Humulin R SUB-Q Not Given ACHS JAKE Protocol Nitroglycerin 0.4 mg 05/31/18 21:44 Nitrostat SL .Q5MIN PRN Chest Pain Ondansetron HCl 4 mg 05/31/18 21:28 Zofran IV Q8H PRN Nausea And Vomiting Risperidone 0.5 mg 06/02/18 22:00 06/08/18 22:53 Risperdal PO 0.5 mg QHS JAKE Administration Sodium Chloride 10 ml 05/31/18 22:00 06/08/18 22:54 Sodium Chloride Flush Syringe 10 Ml IV 10 ml BID JAKE Administration Sodium Chloride 10 ml 05/31/18 21:28 Sodium Chloride Flush Syringe 10 Ml IV PRN PRN LINE FLUSH
[2018-06-09] MEDS ORDERED: ATARAX PO PRN (12:57)
--- NOTE | 2018-06-09 12:57 | Progress Note ---
Assessment and Plan Assessment and plan: Wenkebach second-degree AV block. Echo reviewed - EF 55-60%, mild LVH, no significant valvular abnormalities. Thyroid profile WNL. Consider 30 day event monitor as OP. Frequent falls. ?Etiology likely secondary to above Acute on chronic kidney disease. Nephrology following. Renal ultrasound r eveals no obstruction. Baseline creatinine however is not known. As noted above her serum creatinine was 2.7 in April 2018 UTI. IV antibiotics and follow-up blood and urine cultures. HIV disease. Consider ID consultation. Hypertension. Resume antihypertensive medications. Diabetes mellitus type 2. Continue Accu-Cheks and sliding scale regular insulin Schizophrenia/psychosis. Psychiatry following Morbid obesity. Disposition. Patient was discharged but daughter refused to take her. CM and SW aware of it and working on it. - Patient Problems (1) Acute on chronic renal insufficiency Current Visit: Yes Status: Acute (2) Frequent falls Current Visit: Yes Status: Acute (3) Generalized weakness Current Visit: Yes Status: Acute (4) Hyperkalemia Current Visit: Yes Status: Acute (5) Psychiatric disorder Current Visit: Yes Status: Acute (6) Psychosis Current Visit: Yes Status: Acute (7) Schizophrenia Current Visit: Yes Status: Acute (8) UTI (urinary tract infection) Current Visit: Yes Status: Acute (9) Wenckebach second degree AV block Current Visit: Yes Status: Acute (10) Diabetes Current Visit: Yes Status: Chronic History Interval history: Patient was seen and evaluated this morning, patient didn't have any complaints. Hospitalist Physical - Physical exam Narrative exam: Not in cardiopulmonary distress. The patient is obese. Vital signs as documented. Head exam is unremarkable. No scleral icterus . Neck is without jugular venous distension, thyromegaly, or carotid bruits. Lungs are clear to auscultation. Cardiac exam reveals regular rate and Rhythm. First and second heart sounds normal. No murmurs, rubs or gallops. Abdominal exam reveals normal bowel sounds, no masses, no organomegaly and no aortic enlargement. Extremities are nonedematous and both femoral and pedal pulses are normal. 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 No focal weakness. Skin; whitish lesions around the hair lines. - Constitutional Vitals: Temp Pulse Resp BP Pulse Ox 97.8 F 95 H 20 169/96 96 06/09/18 12:06 06/09/18 12:06 06/09/18 12:06 06/09/18 12:06 06/09/18 12:06 General appearance: Present: no acute distress Results - Labs CBC & Chem 7: 06/07/18 05:42 06/09/18 04:52 Labs: Laboratory Last Values WBC 6.1 K/mm3 (4.5-11.0) 06/07/18 05:42 RBC 3.27 M/mm3 (3.65-5.03) L 06/07/18 05:42 Hgb 10.1 gm/dl (10.1-14.3) 06/07/18 05:42 Hct 30.5 % (30.3-42.9) 06/07/18 05:42 MCV 93 fl (79-97) 06/07/18 05:42 MCH 31 pg (28-32) 06/07/18 05:42 MCHC 33 % (30-34) 06/07/18 05:42 RDW 16.9 % (13.2-15.2) H 06/07/18 05:42 Plt Count 235 K/mm3 (140-440) 06/07/18 05:42 Lymph % (Auto) 34.6 % (13.4-35.0) 06/07/18 05:42 [place] % (Auto) 12.0 % (0.0-7.3) H 06/07/18 05:42 Eos % (Auto) 2.7 % (0.0-4.3) 06/07/18 05:42 Baso % (Auto) 0.6 % (0.0-1.8) 06/07/18 05:42 Lymph # 2.1 K/mm3 (1.2-5.4) 06/07/18 05:42 [place] # 0.7 K/mm3 (0.0-0.8) 06/07/18 05:42 Eos # 0.2 K/mm3 (0.0-0.4) 06/07/18 05:42 Baso # 0.0 K/mm3 (0.0-0.1) 06/07/18 05:42 Seg Neutrophils % 50.1 % (40.0-70.0) 06/07/18 05:42 Seg Neutrophils # 3.0 K/mm3 (1.8-7.7) 06/07/18 05:42 Sodium 135 mmol/L (137-145) L 06/09/18 04:52 Potassium 4.5 mmol/L (3.6-5.0) 06/09/18 04:52 Chloride 106.0 mmol/L (98-107) 06/09/18 04:52 Carbon Dioxide 19 mmol/L (22-30) L 06/09/18 04:52 Anion Gap 15 mmol/L 06/09/18 04:52 BUN 40 mg/dL (7-17) H 06/09/18 04:52 Creatinine 2.9 mg/dL (0.7-1.2) H 06/09/18 04:52 Estimated GFR 20 ml/min 06/09/18 04:52 BUN/Creatinine Ratio 14 % 06/09/18 04:52 Glucose 119 mg/dL (65-100) H 06/09/18 04:52 POC Glucose 125 (70-105) H 06/09/18 11:26 Calcium 8.2 mg/dL (8.4-10.2) L 06/09/18 04:52 Magnesium 1.80 mg/dL (1.7-2.3) 06/02/18 04:59 Total Creatine Kinase 256 units/L (30-135) H 05/31/18 17:56 CK-MB (CK-2) 7.0 ng/mL (0.0-4.0) H 05/31/18 17:56 CK-MB (CK-2) Rel Index 2.7 (0-4) 05/31/18 17:56 Troponin T 0.030 ng/mL (0.00-0.029) H D 06/01/18 11:51 Triglycerides 150 mg/dL (2-149) H 06/01/18 11:51 Cholesterol 204 mg/dL (50-199) H 06/01/18 11:51 LDL Cholesterol Direct 167 mg/dL (50-130) H 06/01/18 11:51 HDL Cholesterol 32 mg/dL (40-59) L 06/01/18 11:51 Cholesterol/HDL Ratio 6.37 % 06/01/18 11:51 TSH 1.750 mlU/mL (0.270-4.200) 06/02/18 13:29 Free T4 1.03 ng/dL (0.76-1.46) 06/02/18 13:29 Urine Color Yellow (Yellow) 05/31/18 19:32 Urine Turbidity Cloudy (Clear) 05/31/18 19:32 Urine pH 6.0 (5.0-7.0) 05/31/18 19:32 Ur Specific [place] 1.009 (1.003-1.030) 05/31/18 19:32 Urine Protein 100 mg/dl mg/dL (Negative) 05/31/18 19:32 Urine Glucose (UA) Neg mg/dL (Negative) 05/31/18 19:32 Urine Ketones Neg mg/dL (Negative) 05/31/18 19:32 Urine Blood Sm (Negative) 05/31/18 19:32 Urine Nitrite Neg (Negative) 05/31/18 19:32 Urine Bilirubin Neg (Negative) 05/31/18 19:32 Urine Urobilinogen < 2.0 mg/dL (<2.0) 05/31/18 19:32 Ur Leukocyte Esterase Lg (Negative) 05/31/18 19:32 Urine WBC (Auto) > 182.0 /HPF (0.0-6.0) H 05/31/18 19:32 Urine RBC (Auto) 83.0 /HPF (0.0-6.0) 05/31/18 19:32 U Epithel Cells (Auto) 4.0 /HPF (0-13.0) 05/31/18 19:32 Urine Bacteria (Auto) 1+ /HPF (Negative) 05/31/18 19:32 Urine WBC Clumps 3+ /HPF 05/31/18 19:32 Urine Yeast (Budding) 2+ /HPF 05/31/18 19:32 Urine Eosinophils >5% (None Seen) 06/01/18 14:30 Urine Opiates Screen Presumptive negative 05/31/18 19:32 Urine Methadone Screen Presumptive negative 05/31/18 19:32 Ur Barbiturates Screen Presumptive negative 05/31/18 19:32 Ur Phencyclidine Scrn Presumptive negative 05/31/18 19:32 Ur Amphetamines Screen Presumptive negative 05/31/18 19:32 U Benzodiazepines Scrn Presumptive negative 05/31/18 19:32 Urine Cocaine Screen Presumptive negative 05/31/18 19:32 U Marijuana (THC) Screen Presumptive negative 05/31/18 19:32 Drugs of Abuse Note Disclamer 05/31/18 19:32 Plasma/Serum Alcohol < 0.01 % (0-0.07) 05/31/18 17:56 Active Medications - Current Medications Current Medications: Generic Name Dose Route Start Last Admin Trade Name Freq PRN Reason Stop Dose Admin Acetaminophen 650 mg 05/31/18 21:28 Tylenol PO Q4H PRN Pain MILD(1-3)/Fever >100.5/BROOKS Albuterol 2.5 mg 06/01/18 21:52 Proventil IH Q4HRT PRN Shortness Of Breath Aspirin 325 mg 06/01/18 10:00 06/09/18 11:44 Ecotrin PO 325 mg QDAY JAKE Administration Sodium Chloride 1,000 mls @ 75 mls/hr 06/09/18 13:00 Nacl 0.45% 1000 Ml IV 06/10/18 13:00 DIRECT JAKE Insulin Human Regular 0 units 05/31/18 22:00 06/09/18 09:06 Humulin R SUB-Q Not Given ACHS [facility] Protocol Nitroglycerin 0.4 mg 05/31/18 21:44 Nitrostat SL .Q5MIN PRN Chest Pain Ondansetron HCl 4 mg 05/31/18 21:28 Zofran IV Q8H PRN Nausea And Vomiting Risperidone 0.5 mg 06/02/18 22:00 06/08/18 22:53 Risperdal PO 0.5 mg QHS JAKE Administration Sodium Chloride 10 ml 05/31/18 22:00 06/08/18 22:54 Sodium Chloride Flush Syringe 10 Ml IV 10 ml BID JAKE Administration Sodium Chloride 10 ml 05/31/18 21:28 Sodium Chloride Flush Syringe 10 Ml IV PRN PRN LINE FLUSH Nutrition/Malnutrition Assess - Dietary Evaluation Nutrition/Malnutrition Findings: Nutrition Notes Start: 06/07/18 14:53 Freq: Status: Active Protocol: Document 06/07/18 14:54 LM (Rec: 06/07/18 14:55 LM [id number]) Co-Sign 06/07/18 14:54 LP Nutrition Notes Need for Assessment generated from: LOS Initial or Follow up Brief Note Subjective/Other Information Screen for LOS. 100% intakes in chart. BMI of 37.3. Nutrition Intervention Revisit per MD consult or patient Sign Off request:
[2018-06-09] MEDS ORDERED: NACL 0.45% 1000 ML 1,000 ML IV SCH (13:00)
[2018-06-09] MEDS: SODIUM CHLORIDE FLUSH SYRINGE 10 ML IV SCH ×2 (21:07→21:43)
[2018-06-09] MEDS: RisperDAL PO SCH (21:43)
[2018-06-10] MEDS: HumuLIN R SUB-Q SCH ×3 (00:12→12:47)
[2018-06-10] MEDS: ECOTRIN PO SCH (09:15)
[2018-06-10] MEDS: SODIUM CHLORIDE FLUSH SYRINGE 10 ML IV SCH (09:17)
--- NOTE | 2018-06-10 09:46 | Progress Note ---
Assessment and Plan Assessment and plan: Wenkebach second-degree AV block. Echo reviewed - EF 55-60%, mild LVH, no significant valvular abnormalities. Thyroid profile WNL. Consider 30 day event monitor as OP. Discussed with the patient. Frequent falls. ?Etiology likely secondary to above, PT evaluated and recommended home health PT Acute on chronic kidney disease. Nephrology following. Renal ultrasound reveals no obstruction. Baseline creatinine however is not known. As noted above her serum creatinine was 2.7 in April 2018 UTI treated with IV antibiotic. HIV disease; continue home medications. Hypertension. Resume antihypertensive medications. Diabetes mellitus type 2. Continue Accu-Cheks and sliding scale regular insulin Schizophrenia/psychosis. Psychiatry following Morbid obesity. Disposition; SW contacted her daughter and will bring documents and plan to send to personal home care. - Patient Problems (1) Acute on chronic renal insufficiency Current Visit: Yes Status: Acute (2) Frequent falls Current Visit: Yes Status: Acute (3) Generalized weakness Current Visit: Yes Status: Acute (4) Hyperkalemia Current Visit: Yes Status: Acute (5) Psychiatric disorder Current Visit: Yes Status: Acute (6) Psychosis Current Visit: Yes Status: Acute (7) Schizophrenia Current Visit: Yes Status: Acute (8) UTI (urinary tract infection) Current Visit: Yes Status: Acute (9) Wenckebach second degree AV block Current Visit: Yes Status: Acute (10) Diabetes Current Visit: Yes Status: Chronic History Interval history: Patient was seen and evaluated this morning, patient was comfortable. Hospitalist Physical - Physical exam Narrative exam: Not in cardiopulmonary distress. The patient is obese. Vital signs as documented. Head exam is unremarkable. No scleral icterus . Neck is without jugular venous distension, thyromegaly, or carotid bruits. Lungs are clear to auscultation. Cardiac exam reveals regular rate and Rhythm. First and second heart sounds normal. No murmurs, rubs or gallops. Abdominal exam reveals normal bowel sounds, no masses, no organomegaly and no aortic enlargement. Extremities are nonedematous and both femoral and pedal pulses are normal. STOCK LETTERER: Alert and oriented 3. No focal weakness. - Constitutional Vitals: Temp Pulse Resp BP Pulse Ox 98.5 F 88 20 134/74 99 06/10/18 05:18 06/10/18 05:18 06/10/18 09:18 06/10/18 05:18 06/10/18 05:18 General appearance: Present: no acute distress Results - Labs CBC & Chem 7: 06/07/18 05:42 06/09/18 04:52 Labs: Laboratory Last Values WBC 6.1 K/mm3 (4.5-11.0) 06/07/18 05:42 RBC 3.27 M/mm3 (3.65-5.03) L 06/07/18 05:42 Hgb 10.1 gm/dl (10.1-14.3) 06/07/18 05:42 Hct 30.5 % (30.3-42.9) 06/07/18 05:42 MCV 93 fl (79-97) 06/07/18 05:42 MCH 31 pg (28-32) 06/07/18 05:42 MCHC 33 % (30-34) 06/07/18 05:42 RDW 16.9 % (13.2-15.2) H 06/07/18 05:42 Plt Count 235 K/mm3 (140-440) 06/07/18 05:42 Lymph % (Auto) 34.6 % (13.4-35.0) 06/07/18 05:42 Pratt % (Auto) 12.0 % (0.0-7.3) H 06/07/18 05:42 Eos % (Auto) 2.7 % (0.0-4.3) 06/07/18 05:42 Baso % (Auto) 0.6 % (0.0-1.8) 06/07/18 05:42 Lymph # 2.1 K/mm3 (1.2-5.4) 06/07/18 05:42 Pratt # 0.7 K/mm3 (0.0-0.8) 06/07/18 05:42 Eos # 0.2 K/mm3 (0.0-0.4) 06/07/18 05:42 Baso # 0.0 K/mm3 (0.0-0.1) 06/07/18 05:42 Seg Neutrophils % 50.1 % (40.0-70.0) 06/07/18 05:42 Seg Neutrophils # 3.0 K/mm3 (1.8-7.7) 06/07/18 05:42 Sodium 135 mmol/L (137-145) L 06/09/18 04:52 Potassium 4.5 mmol/L (3.6-5.0) 06/09/18 04:52 Chloride 106.0 mmol/L (98-107) 06/09/18 04:52 Carbon Dioxide 19 mmol/L (22-30) L 06/09/18 04:52 Anion Gap 15 mmol/L 06/09/18 04:52 BUN 40 mg/dL (7-17) H 06/09/18 04:52 Creatinine 2.9 mg/dL (0.7-1.2) H 06/09/18 04:52 Estimated GFR 20 ml/min 06/09/18 04:52 BUN/Creatinine Ratio 14 % 06/09/18 04:52 Glucose 119 mg/dL (65-100) H 06/09/18 04:52 POC Glucose 86 (70-105) 06/10/18 08:04 Calcium 8.2 mg/dL (8.4-10.2) L 06/09/18 04:52 Magnesium 1.80 mg/dL (1.7-2.3) 06/02/18 04:59 Total Creatine Kinase 256 units/L (30-135) H 05/31/18 17:56 CK-MB (CK-2) 7.0 ng/mL (0.0-4.0) H 05/31/18 17:56 CK-MB (CK-2) Rel Index 2.7 (0-4) 05/31/18 17:56 Troponin T 0.030 ng/mL (0.00-0.029) H D 06/01/18 11:51 Triglycerides 150 mg/dL (2-149) H 06/01/18 11:51 Cholesterol 204 mg/dL (50-199) H 06/01/18 11:51 LDL Cholesterol Direct 167 mg/dL (50-130) H 06/01/18 11:51 HDL Cholesterol 32 mg/dL (40-59) L 06/01/18 11:51 Cholesterol/HDL Ratio 6.37 % 06/01/18 11:51 TSH 1.750 mlU/mL (0.270-4.200) 06/02/18 13:29 Free T4 1.03 ng/dL (0.76-1.46) 06/02/18 13:29 Urine Color Yellow (Yellow) 05/31/18 19:32 Urine Turbidity Cloudy (Clear) 05/31/18 19:32 Urine pH 6.0 (5.0-7.0) 05/31/18 19:32 Ur Specific [place] 1.009 (1.003-1.030) 05/31/18 19:32 Urine Protein 100 mg/dl mg/dL (Negative) 05/31/18 19:32 Urine Glucose (UA) Neg mg/dL (Negative) 05/31/18 19:32 Urine Ketones Neg mg/dL (Negative) 05/31/18 19:32 Urine Blood Sm (Negative) 05/31/18 19:32 Urine Nitrite Neg (Negative) 05/31/18 19:32 Urine Bilirubin Neg (Negative) 05/31/18 19:32 Urine Urobilinogen < 2.0 mg/dL (<2.0) 05/31/18 19:32 Ur Leukocyte Esterase Lg (Negative) 05/31/18 19:32 Urine WBC (Auto) > 182.0 /HPF (0.0-6.0) H 05/31/18 19:32 Urine RBC (Auto) 83.0 /HPF (0.0-6.0) 05/31/18 19:32 U Epithel Cells (Auto) 4.0 /HPF (0-13.0) 05/31/18 19:32 Urine Bacteria (Auto) 1+ /HPF (Negative) 05/31/18 19:32 Urine WBC Clumps 3+ /HPF 05/31/18 19:32 Urine Yeast (Budding) 2+ /HPF 05/31/18 19:32 Urine Eosinophils >5% (None Seen) 06/01/18 14:30 Urine Opiates Screen Presumptive negative 05/31/18 19:32 Urine Methadone Screen Presumptive negative 05/31/18 19:32 Ur Barbiturates Screen Presumptive negative 05/31/18 19:32 Ur Phencyclidine Scrn Presumptive negative 05/31/18 19:32 Ur Amphetamines Screen Presumptive negative 05/31/18 19:32 U Benzodiazepines Scrn Presumptive negative 05/31/18 19:32 Urine Cocaine Screen Presumptive negative 05/31/18 19:32 U Marijuana (THC) Screen Presumptive negative 05/31/18 19:32 Drugs of Abuse Note Disclamer 05/31/18 19:32 Plasma/Serum Alcohol < 0.01 % (0-0.07) 05/31/18 17:56 Active Medications - Current Medications Current Medications: Generic Name Dose Route Start Last Admin Trade Name Freq PRN Reason Stop Dose Admin Acetaminophen 650 mg 05/31/18 21:28 Tylenol PO Q4H PRN Pain MILD(1-3)/Fever >100.5/BROOKS Albuterol 2.5 mg 06/01/18 21:52 Proventil IH Q4HRT PRN Shortness Of Breath Aspirin 325 mg 06/01/18 10:00 06/10/18 09:15 Ecotrin PO 325 mg QDAY JAKE Administration Hydroxyzine HCl 25 mg 06/09/18 12:57 Atarax PO Q6H PRN Itching Sodium Chloride 1,000 mls @ 75 mls/hr 06/09/18 13:00 06/10/18 08:52 Nacl 0.45% 1000 Ml IV 06/10/18 13:00 75 mls/hr DIRECT JAKE Administration Insulin Human Regular 0 units 05/31/18 22:00 06/10/18 08:57 Humulin R SUB-Q Not Given ACHS [facility] Protocol Nitroglycerin 0.4 mg 05/31/18 21:44 Nitrostat SL .Q5MIN PRN Chest Pain Ondansetron HCl 4 mg 05/31/18 21:28 Zofran IV Q8H PRN Nausea And Vomiting Risperidone 0.5 mg 06/02/18 22:00 06/09/18 21:43 Risperdal PO 0.5 mg QHS JAKE Administration Sodium Chloride 10 ml 05/31/18 22:00 06/10/18 09:17 Sodium Chloride Flush Syringe 10 Ml IV 10 ml BID JAKE Administration Sodium Chloride 10 ml 05/31/18 21:28 Sodium Chloride Flush Syringe 10 Ml IV PRN PRN LINE FLUSH Nutrition/Malnutrition Assess - Dietary Evaluation Nutrition/Malnutrition Findings: Nutrition Notes Start: 06/07/18 14:53 Freq: Status: Active Protocol: Document 06/07/18 14:54 LM (Rec: 06/07/18 14:55 LM [id number]) Co-Sign 06/07/18 14:54 LP Nutrition Notes Need for Assessment generated from: LOS Initial or Follow up Brief Note Subjective/Other Information Screen for LOS. 100% intakes in chart. BMI of 37.3. Nutrition Intervention Revisit per MD consult or patient Sign Off request:
--- NOTE | 2018-06-10 10:47 | Progress Note ---
Assessment and Plan Impression * Acute on chronic renal failure * Bipolar disorder * HIV disease * Hypertension * Diabetes * Obesity * Urinary tract infection Recommendations * Her serum creatinine is sligthly elevated, follow up UA, still not collected * gentle IV fluid * Renal ultrasound shows a left kidney to be smaller and a right nonobstructing kidney stone * It appears the patient does have a history of underlying chronic kidney disease. * Baseline creatinine however is not known. Serum creatinine was 2.7 in April 2018 * Recent rise in creatinine may be due to Bactrim which she was taking at the time of admission. She may have a prerenal component as well * Monitor fluid status and electrolytes closely * Avoid nephrotoxins * No objection to discharge from renal standpoint Subjective Date of service: 06/10/18 Principal diagnosis: wenckebach Interval history: resting in bed Objective - Exam Narrative Exam: General appearance: well-developed, well-nourished, appears stated age EENT: PERRL, mucous membranes moist Neck: no JVD, no thyromegaly, no carotid bruit, supple Respiratory: Present: Clear to Ascultation Cardiology: regular, normal heart rate, S1S2, no murmurs Gastrointestinal: normal, normoactive bowel sounds Integumentary: no rash, other (no edema) - Vital Signs Vital signs: Vital Signs - 12hr 06/09/18 06/10/18 06/10/18 23:31 05:18 09:18 Temperature 98.2 F 98.5 F Pulse Rate 88 88 Respiratory 18 18 20 Rate Blood Pressure 144/80 134/74 O2 Sat by Pulse 97 99 Oximetry - Lab 06/07/18 05:42 06/09/18 04:52 Most recent lab results Calcium 8.2 mg/dL (8.4-10.2) L 06/09/18 04:52 Magnesium 1.80 mg/dL (1.7-2.3) 06/02/18 04:59 Medications & Allergies - Medications Allergies/Adverse Reactions: Allergies No Known Allergies Allergy (Verified 05/05/18 14:30) Home Medications: Home Medications Medication Instructions Recorded Confirmed Last Taken Type Atovaquone [Mepron] 750 mg PO DAILY 06/02/18 06/02/18 Unknown History Citalopram Hydrobromide 20 mg PO DAILY 06/02/18 06/02/18 Unknown History [Citalopram HBr] Dolutegravir [Tivicay] 50 mg PO DAILY 06/02/18 06/02/18 Unknown History Lisinopril [Prinivil] 5 mg PO DAILY 06/02/18 06/02/18 Unknown History Montelukast Sodium 10 mg PO DAILY 06/02/18 06/02/18 Unknown History Quetiapine Fumarate [QUEtiapine 400 mg PO BID 06/02/18 06/02/18 Unknown History Fumarate] Rilpivirine (Nf) [Edurant (Nf)] 25 mg PO QDAY 06/02/18 06/02/18 Unknown History Rosuvastatin (Nf) [Crestor] 5 mg PO QHS 06/02/18 06/02/18 Unknown History hydrALAZINE [Apresoline TAB] 25 mg PO Q8HR 06/02/18 06/02/18 Unknown History lamiVUDine [Lamivudine] 150 mg PO DAILY 06/02/18 06/02/18 Unknown History cephALEXin [Keflex] 500 mg PO Q8HR #15 cap 06/07/18 Unknown Rx risperiDONE [RisperDAL] 0.5 mg PO QHS #20 tablet 06/07/18 Unknown Rx Active Medications: Generic Name Dose Route Start Last Admin Trade Name Freq PRN Reason Stop Dose Admin Acetaminophen 650 mg 05/31/18 21:28 Tylenol PO Q4H PRN Pain MILD(1-3)/Fever >100.5/BROOKS Albuterol 2.5 mg 06/01/18 21:52 Proventil IH Q4HRT PRN Shortness Of Breath Aspirin 325 mg 06/01/18 10:00 06/10/18 09:15 Ecotrin PO 325 mg QDAY JAKE Administration Hydroxyzine HCl 25 mg 06/09/18 12:57 Atarax PO Q6H PRN Itching Sodium Chloride 1,000 mls @ 75 mls/hr 06/09/18 13:00 06/10/18 08:52 Nacl 0.45% 1000 Ml IV 06/10/18 13:00 75 mls/hr DIRECT JAKE Administration Insulin Human Regular 0 units 05/31/18 22:00 06/10/18 08:57 Humulin R SUB-Q Not Given ACHS JAKE Protocol Nitroglycerin 0.4 mg 05/31/18 21:44 Nitrostat SL .Q5MIN PRN Chest Pain Ondansetron HCl 4 mg 05/31/18 21:28 Zofran IV Q8H PRN Nausea And Vomiting Risperidone 0.5 mg 06/02/18 22:00 06/09/18 21:43 Risperdal PO 0.5 mg QHS JAKE Administration Sodium Chloride 10 ml 05/31/18 22:00 06/10/18 09:17 Sodium Chloride Flush Syringe 10 Ml IV 10 ml BID JAKE Administration Sodium Chloride 10 ml 05/31/18 21:28 Sodium Chloride Flush Syringe 10 Ml IV PRN PRN LINE FLUSH
[2018-06-10 11:36] LABS: Bilirubin,Urine NEG (Negative); Blood,Urine MOD (Negative); Color,Urine Yellow (Yellow); Urobilinogen,Urine < 2.0 mg/dL (<2.0)
[2018-06-10 12:01] LABS: WBC,Urine > 182.0 /HPF (0.0-6.0)
[2018-06-10 13:30] LABS: Calcium 8.6 mg/dL (8.4-10.2)
[2018-06-10 15:00] LABS: Creatinine,Urine TNR mg/dL (0.1-20.0); Fractional Sodium Excretion TNR
[2018-06-10 15:02] LABS: Creatinine,Urine 95.5 mg/dL (0.1-20.0); Fractional Sodium Excretion 1.4
[2018-06-10 17:39] VITALS: BP 162/91
== END 2018-06-10 17:55 | disposition home or self-care (01) | DRG 308 ==
LOC: ED 17:00 → 4A 21:28 → 3A 06-07 19:01
PROVIDERS: ADMIT Internal Medicine Geriatric Medicine; ATTEND Internal Medicine
DX: I44.1 Atrioventricular block, second degree (principal); N17.0 Acute kidney failure with tubular necrosis; N39.0 Urinary tract infection, site not specified; B20 Human immunodeficiency virus [HIV] disease; E87.5 Hyperkalemia; N18.9 Chronic kidney disease, unspecified; F20.9 Schizophrenia, unspecified; F31.9 Bipolar disorder, unspecified; E66.01 Morbid (severe) obesity due to excess calories; I12.9 Hypertensive chronic kidney disease with stage 1 through stage 4 chronic kidney disease, or unspecified chronic kidney disease; E11.22 Type 2 diabetes mellitus with diabetic chronic kidney disease; F29 Unspecified psychosis not due to a substance or known physiological condition; F17.210 Nicotine dependence, cigarettes, uncomplicated; E78.5 Hyperlipidemia, unspecified; F03.90 Unspecified dementia, unspecified severity, without behavioral disturbance, psychotic disturbance, mood disturbance, and anxiety; R00.1 Bradycardia, unspecified; Z68.37 Body mass index [BMI] 37.0-37.9, adult
CPT/HCPCS: 36415; 70450; 76770; 80048; 80061; 80307; 80320; 81001; 82550; 82553; 82565; 82570; 82962; 83735; 84295; 84300; 84439; 84443; 84484; 85025; 87040; 87116; 89050; 93005; 93010; 93306; 94640; 96361; 96374; 96375; 99406; G0378; G0480; J1815; J1940; J7030

== ENCOUNTER 2018-10-25 09:33 | Emergency (ER) | payer MEDICARE ==
[2018-10-25] MEDS ORDERED: TYLENOL PO ONE (12:50)
--- NOTE | 2018-10-25 12:51 | Emergency Department Report ---
ED General Adult HPI - General Chief complaint: Urogenital-Female Stated complaint: OPEN WOUND Time Seen by Provider: 10/25/18 12:42 Source: patient, RN notes reviewed, old records reviewed Mode of arrival: Ambulatory Limitations: No Limitations, Other (the patient is a poor historian) - History of Present Illness Initial comments: This is a 52-year-old female. This patient is not known to this provider previously. Her past medical history includes HIV, diabetes type 2, bipolar, hypertension, renal insufficiency, schizophrenia, morbid obesity, suprapubic Nicolas catheter. Her suprapubic Nicolas catheter was placed by Dr. Jesus Mendoza, at [facility], last month, September 22. I contacted the aforementioned physician for collateral information and corroboration. Apparently, the patient was discharged from the hospital, and supposed to follow up within 2 weeks, and reportedly did not follow-up. The patient is sent to the ER today by her personal shelter for evaluation of her suprapubic wound site. The patient has no complaints at this time. She is asking to eat and drink. Apparently, personnel at the personal shelter concerned about possible discharge from the wound site. - Related Data Home Medications Medication Instructions Recorded Confirmed Last Taken Atovaquone [Mepron] 750 mg PO DAILY 06/02/18 06/02/18 Unknown Citalopram Hydrobromide 20 mg PO DAILY 06/02/18 06/02/18 Unknown [Citalopram HBr] Dolutegravir [Tivicay] 50 mg PO DAILY 06/02/18 06/02/18 Unknown Lisinopril [Prinivil] 5 mg PO DAILY 06/02/18 06/02/18 Unknown Montelukast Sodium 10 mg PO DAILY 06/02/18 06/02/18 Unknown Quetiapine Fumarate [QUEtiapine 400 mg PO BID 06/02/18 06/02/18 Unknown Fumarate] Rilpivirine (Nf) [Edurant (Nf)] 25 mg PO QDAY 06/02/18 06/02/18 Unknown Rosuvastatin (Nf) [Crestor] 5 mg PO QHS 06/02/18 06/02/18 Unknown hydrALAZINE [Apresoline TAB] 25 mg PO Q8HR 06/02/18 06/02/18 Unknown lamiVUDine [Lamivudine] 150 mg PO DAILY 06/02/18 06/02/18 Unknown Previous Rx's Medication Instructions Recorded Last Taken Type cephALEXin [Keflex] 500 mg PO Q8HR #15 cap 06/07/18 Unknown Rx risperiDONE [RisperDAL] 0.5 mg PO QHS #20 tablet 06/07/18 Unknown Rx Allergies Allergy/AdvReac Type Severity Reaction Status Date / Time No Known Allergies Allergy Verified 05/05/18 14:30 ED Review of Systems ROS: Stated complaint: OPEN WOUND Other details as noted in HPI Constitutional: denies: fever Eyes: denies: eye discharge ENT: denies: epistaxis Respiratory: denies: cough Cardiovascular: denies: chest pain Gastrointestinal: denies: vomiting Genitourinary: denies: dysuria Musculoskeletal: denies: myalgia Skin: rash Neurological: denies: weakness ED Past Medical Hx - Past Medical History Previous Medical History?: Yes Hx Hypertension: Yes Hx Congestive Heart Failure: No Hx Diabetes: Yes Hx Psychiatric Treatment: Yes (bipolar, schizophrenia) Hx Asthma: No Hx COPD: No Hx Dementia: Yes Hx HIV: Yes - Surgical History Past Surgical History?: Yes Hx Cholecystectomy: Yes Hx Breast Surgery: Yes (Left breast cyst removed.) Additional Surgical History: abscess removed - Social History Smoking Status: Current Every Day Smoker Substance Use Type: None - Medications Home Medications: Home Medications Medication Instructions Recorded Confirmed Last Taken Type Atovaquone [Mepron] 750 mg PO DAILY 06/02/18 06/02/18 Unknown History Citalopram Hydrobromide 20 mg PO DAILY 06/02/18 06/02/18 Unknown History [Citalopram HBr] Dolutegravir [Tivicay] 50 mg PO DAILY 06/02/18 06/02/18 Unknown History Lisinopril [Prinivil] 5 mg PO DAILY 06/02/18 06/02/18 Unknown History Montelukast Sodium 10 mg PO DAILY 06/02/18 06/02/18 Unknown History Quetiapine Fumarate [QUEtiapine 400 mg PO BID 06/02/18 06/02/18 Unknown History Fumarate] Rilpivirine (Nf) [Edurant (Nf)] 25 mg PO QDAY 06/02/18 06/02/18 Unknown History Rosuvastatin (Nf) [Crestor] 5 mg PO QHS 06/02/18 06/02/18 Unknown History hydrALAZINE [Apresoline TAB] 25 mg PO Q8HR 06/02/18 06/02/18 Unknown History lamiVUDine [Lamivudine] 150 mg PO DAILY 06/02/18 06/02/18 Unknown History cephALEXin [Keflex] 500 mg PO Q8HR #15 cap 06/07/18 Unknown Rx risperiDONE [RisperDAL] 0.5 mg PO QHS #20 tablet 06/07/18 Unknown Rx ED Physical Exam - General Limitations: Other (the patient is a poor historian. The patient is a poor historian.) General appearance: alert, in no apparent distress, obese - Head Head exam: Present: atraumatic, normocephalic - Eye Eye exam: Present: normal appearance, EOMI - ENT ENT exam: Present: normal exam, normal orophraynx, mucous membranes moist, normal external ear exam - Neck Neck exam: Present: normal inspection, full ROM. Absent: tenderness, meningismus - Respiratory Respiratory exam: Present: normal lung sounds bilaterally. Absent: respiratory distress - Cardiovascular Cardiovascular Exam: Present: regular rate, normal rhythm, normal heart sounds. Absent: bradycardia, tachycardia, irregular rhythm, systolic murmur, diastolic murmur, rubs, gallop - GI/Abdominal GI/Abdominal exam: Present: soft, other (there is a suprapubic Nicolas catheter inside. The wound is noted, and does not have redness, streaking, or significant purulent discharge. She has minimal white discharge noted. It is not foul-smelling.). Absent: distended, tenderness, guarding, rebound, rigid, pulsatile mass - Extremities Exam Extremities exam: Present: normal inspection, full ROM, other (2+ pulses noted in the bilateral upper, lower extremities. Compartments soft. No long bony tenderness. The pelvis is stable.). Absent: pedal edema, joint swelling, calf tenderness - Back Exam Back exam: Present: normal inspection, full ROM. Absent: tenderness, CVA tenderness (R), CVA tenderness (L), paraspinal tenderness, vertebral tenderness - Neurological Exam Neurological exam: Present: alert, normal gait, other (Extraocular movements intact. Tongue midline. No facial droop. Facial sensation intact to light touch in the V1, V2, V3 distribution bilaterally. 5 and 5 strength in 4 extremities.. Sensation is intact to light touch in 4 extremities.). Absent: motor sensory deficit - Psychiatric Psychiatric exam: Present: normal affect, normal mood - Skin Skin exam: Present: warm, dry, normal color, other (numerous merari noted in the suprapubic region. There is no redness, or streaking or tenderness.) ED Course Vital Signs 10/25/18 10/25/18 09:43 13:50 Temperature 98.3 F 98.2 F Pulse Rate 108 H 80 Respiratory 18 16 Rate Blood Pressure 145/73 Blood Pressure 117/70 [Right] O2 Sat by Pulse 100 100 Oximetry - Reevaluation(s) Reevaluation #1: 10/25/18 14:03 Differential diagnosis, including but not limited to: Chronic indwelling suprapubic Nicolas catheter, wound evaluation, wound discharge Assessment and plan: 52-year-old female sent to the ER for evaluation of wound. I am able to get in touch with her surgeon of record. The patient did not follow-up as instructed to. There is no redness, or streaking. The patient has minimal discharge, which is not foul smelling, and she is moderately obese, and the abdominal pannus appears to be rubbing up against a suprapubic panus. I contacted her surgeon of record, who indicated she would be happy to see the patient within the next 24-48 hours. The patient will need to have follow-up with her surgeon arranged. She'll also need to practice appropriate wound care The patient does not appear to have an emergent medical condition at this time. She does not require laboratory studies or transfer or advanced imaging at this time. She is resting currently in her stretcher, and in no acute distress. ED Medical Decision Making - Lab Data Vital Signs 10/25/18 10/25/18 09:43 13:50 Temperature 98.3 F 98.2 F Pulse Rate 108 H 80 Respiratory 18 16 Rate Blood Pressure 145/73 Blood Pressure 117/70 [Right] O2 Sat by Pulse 100 100 Oximetry Critical care attestation.: If time is entered above; I have spent that time in minutes in the direct care of this critically ill patient, excluding procedure time. ED Disposition Clinical Impression: Suprapubic catheter, Wound of abdomen Disposition: DC-01 TO HOME OR SELFCARE Is pt being admited?: No Does the pt Need Aspirin: No Condition: Stable Additional Instructions: Continue outpatient medications. Recommend patient follow-up within the next 2 days with her urologist of record, Dr. Jesus Mendoza [facility] [place] [address] Get Directions In addition, recommend keeping the wound dry, and recommended washing with gentle soap and water once every 12-24 hours. Patient should wear loosefitting clothing. Patient may also follow-up with our listed wound care center for outpatient wound care. Patient may also follow-up with our wound care center for outpatient wound care. Return to the emergency room by way of projectile vomiting, change in mental status, confusion, inability to tolerate liquid feeds, new, worsening or different symptoms not present on the initial emergency room evaluation. Referrals: [facility] [Outside] - 3-5 Days [email or web address] [Other] - 3-5 Days
[2018-10-25 15:34] VITALS: BP 127/78
== END 2018-10-25 15:34 | disposition home or self-care (01) ==
LOC: ED 09:33
DX: T83.091A Other mechanical complication of indwelling urethral catheter, initial encounter (principal); Z21 Asymptomatic human immunodeficiency virus [HIV] infection status; E11.9 Type 2 diabetes mellitus without complications; F31.9 Bipolar disorder, unspecified; I10 Essential (primary) hypertension; F20.9 Schizophrenia, unspecified; F17.200 Nicotine dependence, unspecified, uncomplicated; E66.01 Morbid (severe) obesity due to excess calories; Z68.37 Body mass index [BMI] 37.0-37.9, adult; Z79.899 Other long term (current) drug therapy; Z90.49 Acquired absence of other specified parts of digestive tract
CPT/HCPCS: 51702; 99282

== ENCOUNTER 2018-11-08 13:38 | Emergency (ER) | payer MEDICARE ==
[2018-11-08 13:50] VITALS: BP 121/78
--- NOTE | 2018-11-08 13:53 | Event Note ---
ED Screening Note Date of service: 11/08/18 Time: 13:48 ED Screening Note: This is a a 52 y.o. F. that presents to the ER with drainage and opening around suprapubic catheter. Patient reports drainage and pain around site. Patient seen at [facility] 2 weeks ago and they stapled area and placed on antibiotics for infected catheter. This initial assessment/diagnostic orders/clinical plan/treatment(s) is/are subject to change based on patients health status, clinical progression and re-assessment by fellow clinical providers in the ED. Further treatment and workup at subsequent clinical providers discretion. Patient/guardian urged not to elope from the ED as their condition may be serious if not clinically assessed and managed. Initial orders include: Labs
[2018-11-08 14:33] LABS: Basophils % (Auto) 0.7 % (0.0-1.8); Eosinophils # (Auto) 0.3 K/mm3 (0.0-0.4); Eosinophils % (Auto) 4.1 % (0.0-4.3); Hematocrit 27.7 % (30.3-42.9); Hemoglobin 9.2 gm/dl (10.1-14.3); Lymphocytes # (Auto) 1.2 K/mm3 (1.2-5.4); Lymphocytes % (Auto) 17.4 % (13.4-35.0); Mean Corpuscular HGB Conc 33 % (30-34); Mean Corpuscular Volume 98 fl (79-97); Monocytes # (Auto) 0.5 K/mm3 (0.0-0.8); Monocytes % (Auto) 6.8 % (0.0-7.3); Platelet Count 370 K/mm3 (140-440); Red Blood Count 2.83 M/mm3 (3.65-5.03); Red Cell Distribution Width 18.4 % (13.2-15.2)
[2018-11-08 14:56] LABS: Alanine Aminotransferase 14 units/L (7-56); Albumin 3.3 g/dL (3.9-5); BUN/Creatinine Ratio 15; Blood Urea Nitrogen 53 mg/dL (7-17); Calcium 8.9 mg/dL (8.4-10.2); Hemolysis Index 4
[2018-11-08 15:45] LABS: Bilirubin,Urine NEG (Negative); Blood,Urine LG (Negative); Color,Urine Yellow (Yellow); Mucus,Urine FEW /HPF; Urobilinogen,Urine < 2.0 mg/dL (<2.0)
[2018-11-08 15:50] LABS: WBC,Urine > 182.0 /HPF (0.0-6.0)
--- NOTE | 2018-11-08 17:06 | Emergency Department Report ---
ED General Adult HPI - General Chief complaint: Wound/Laceration Stated complaint: POSS CATH INFECTED Time Seen by Provider: 11/08/18 13:48 Source: patient, family Mode of arrival: Ambulatory Limitations: No Limitations - History of Present Illness Initial comments: Patient is a 52-year-old Sirisha female with a past history of chronic renal insufficiency bipolar disorder HIV hypertension and early-onset dementia who had a suprapubic catheter placed approximately muff ago. Patient's caregiver last one Peron to follow state that when the bag is heavy it actually weighs downward and the balloon is pulling from within the bladder. Patient has some wound dehiscence that had to be stapled approximately 2 weeks ago. Patient does not have her follow-up appointment at [facility] mode. The patient was sent in today because there was some blood on the dressings are caregiver was changing her. Patient currently is on no antibiotics for UTI also in the bag showing some cloudy urine. Patient is only on amoxicillin for a possible skin infection from her anal and vaginal warts. Her caregiver states that these warts looked much improved from when she first started using the antibiotics. - Related Data Home Medications Medication Instructions Recorded Confirmed Last Taken Atovaquone [Mepron] 750 mg PO DAILY 06/02/18 06/02/18 Unknown Citalopram Hydrobromide 20 mg PO DAILY 06/02/18 06/02/18 Unknown [Citalopram HBr] Dolutegravir [Tivicay] 50 mg PO DAILY 06/02/18 06/02/18 Unknown Lisinopril [Prinivil] 5 mg PO DAILY 06/02/18 06/02/18 Unknown Montelukast Sodium 10 mg PO DAILY 06/02/18 06/02/18 Unknown Quetiapine Fumarate [QUEtiapine 400 mg PO BID 06/02/18 06/02/18 Unknown Fumarate] Rilpivirine (Nf) [Edurant (Nf)] 25 mg PO QDAY 06/02/18 06/02/18 Unknown Rosuvastatin (Nf) [Crestor] 5 mg PO QHS 06/02/18 06/02/18 Unknown hydrALAZINE [Apresoline TAB] 25 mg PO Q8HR 06/02/18 06/02/18 Unknown lamiVUDine [Lamivudine] 150 mg PO DAILY 06/02/18 06/02/18 Unknown Previous Rx's Medication Instructions Recorded Last Taken Type cephALEXin [Keflex] 500 mg PO Q8HR #15 cap 06/07/18 Unknown Rx risperiDONE [RisperDAL] 0.5 mg PO QHS #20 tablet 06/07/18 Unknown Rx levoFLOXacin [Levaquin TAB] 500 mg PO QDAY #10 tablet 11/08/18 Unknown Rx Allergies Allergy/AdvReac Type Severity Reaction Status Date / Time No Known Allergies Allergy Verified 05/05/18 14:30 ED Review of Systems ROS: Stated complaint: POSS CATH INFECTED Other details as noted in HPI Comment: All other systems reviewed and negative ED Past Medical Hx - Past Medical History Previous Medical History?: Yes Hx Hypertension: Yes Hx Congestive Heart Failure: No Hx Diabetes: Yes Hx Psychiatric Treatment: Yes (bipolar, schizophrenia) Hx Asthma: No Hx COPD: No Hx Dementia: Yes Hx HIV: Yes - Surgical History Past Surgical History?: Yes Hx Cholecystectomy: Yes Hx Breast Surgery: Yes (Left breast cyst removed.) Additional Surgical History: abscess removed - Social History Smoking Status: Never Smoker Substance Use Type: None - Medications Home Medications: Home Medications Medication Instructions Recorded Confirmed Last Taken Type Atovaquone [Mepron] 750 mg PO DAILY 06/02/18 06/02/18 Unknown History Citalopram Hydrobromide 20 mg PO DAILY 06/02/18 06/02/18 Unknown History [Citalopram HBr] Dolutegravir [Tivicay] 50 mg PO DAILY 06/02/18 06/02/18 Unknown History Lisinopril [Prinivil] 5 mg PO DAILY 06/02/18 06/02/18 Unknown History Montelukast Sodium 10 mg PO DAILY 06/02/18 06/02/18 Unknown History Quetiapine Fumarate [QUEtiapine 400 mg PO BID 06/02/18 06/02/18 Unknown History Fumarate] Rilpivirine (Nf) [Edurant (Nf)] 25 mg PO QDAY 06/02/18 06/02/18 Unknown History Rosuvastatin (Nf) [Crestor] 5 mg PO QHS 06/02/18 06/02/18 Unknown History hydrALAZINE [Apresoline TAB] 25 mg PO Q8HR 06/02/18 06/02/18 Unknown History lamiVUDine [Lamivudine] 150 mg PO DAILY 06/02/18 06/02/18 Unknown History cephALEXin [Keflex] 500 mg PO Q8HR #15 cap 06/07/18 Unknown Rx risperiDONE [RisperDAL] 0.5 mg PO QHS #20 tablet 06/07/18 Unknown Rx levoFLOXacin [Levaquin TAB] 500 mg PO QDAY #10 tablet 11/08/18 Unknown Rx ED Physical Exam - General Limitations: No Limitations General appearance: alert, in no apparent distress - Head Head exam: Present: atraumatic, normocephalic - Eye Eye exam: Present: normal appearance - ENT ENT exam: Present: mucous membranes moist - Neck Neck exam: Present: normal inspection - Respiratory Respiratory exam: Present: normal lung sounds bilaterally. Absent: respiratory distress, wheezes, rales, rhonchi - Cardiovascular Cardiovascular Exam: Present: regular rate, normal rhythm. Absent: systolic murmur, diastolic murmur, rubs, gallop - GI/Abdominal GI/Abdominal exam: Present: soft, normal bowel sounds, other (patient with a suprapubic catheter in place. The dressings are dry except for very small amount of pink tinged urine.). Absent: distended, tenderness, guarding, rebound, rigid - Extremities Exam Extremities exam: Present: normal inspection - Back Exam Back exam: Present: normal inspection - Neurological Exam Neurological exam: Present: alert, oriented X3 - Psychiatric Psychiatric exam: Present: normal affect, normal mood - Skin Skin exam: Present: warm, dry, intact, normal color. Absent: rash ED Course Vital Signs 11/08/18 13:48 Temperature 97.7 F Pulse Rate 95 H Respiratory 20 Rate Blood Pressure 121/78 O2 Sat by Pulse 100 Oximetry ED Medical Decision Making - Lab Data Result diagrams: 11/08/18 14:21 11/08/18 14:21 Lab Results 11/08/18 11/08/18 11/08/18 Range/Units 14:21 14:21 15:06 WBC 6.6 (4.5-11.0) K/mm3 RBC 2.83 L (3.65-5.03) M/mm3 Hgb 9.2 L (10.1-14.3) gm/dl Hct 27.7 L (30.3-42.9) % MCV 98 H (79-97) fl MCH 33 H (28-32) pg MCHC 33 (30-34) % RDW 18.4 H (13.2-15.2) % Plt Count 370 (140-440) K/mm3 Lymph % (Auto) 17.4 (13.4-35.0) % [place] % (Auto) 6.8 (0.0-7.3) % Eos % (Auto) 4.1 (0.0-4.3) % Baso % (Auto) 0.7 (0.0-1.8) % Lymph # 1.2 (1.2-5.4) K/mm3 [place] # 0.5 (0.0-0.8) K/mm3 Eos # 0.3 (0.0-0.4) K/mm3 Baso # 0.0 (0.0-0.1) K/mm3 Seg Neutrophils % 71.0 H (40.0-70.0) % Seg Neutrophils # 4.7 (1.8-7.7) K/mm3 Sodium 137 (137-145) mmol/L Potassium 4.8 (3.6-5.0) mmol/L Chloride 104.7 (98-107) mmol/L Carbon Dioxide 20 L (22-30) mmol/L Anion Gap 17 mmol/L BUN 53 H (7-17) mg/dL Creatinine 3.5 H (0.7-1.2) mg/dL Estimated GFR 16 ml/min BUN/Creatinine Ratio 15 % Glucose 177 H (65-100) mg/dL Calcium 8.9 (8.4-10.2) mg/dL Total Bilirubin < 0.20 (0.1-1.2) mg/dL AST 14 (5-40) units/L ALT 14 (7-56) units/L Alkaline Phosphatase 110 (35-129) units/L Total Protein 7.9 (6.3-8.2) g/dL Albumin 3.3 L (3.9-5) g/dL Albumin/Globulin Ratio 0.7 % Urine Color Yellow (Yellow) Urine Turbidity Cloudy (Clear) Urine pH 5.0 (5.0-7.0) Ur Specific [place] 1.013 (1.003-1.030) Urine Protein 100 mg/dl (Negative) mg/dL Urine Glucose (UA) Neg (Negative) mg/dL Urine Ketones Neg (Negative) mg/dL Urine Blood Lg (Negative) Urine Nitrite Neg (Negative) Urine Bilirubin Neg (Negative) Urine Urobilinogen < 2.0 (<2.0) mg/dL Ur Leukocyte Esterase Lg (Negative) Urine WBC (Auto) > 182.0 H (0.0-6.0) /HPF Urine RBC (Auto) 86.0 (0.0-6.0) /HPF U Epithel Cells (Auto) 3.0 (0-13.0) /HPF Urine WBC Clumps 3+ /HPF Urine Mucus Few /HPF Urine Yeast (Budding) 2+ /HPF - Medical Decision Making Patient appears to have UTI still. Patient is not currently on antibiotic that covers for urine specifically. Patient started on levaquin and will be discharged home. This will cover for possible pseudomonas Critical care attestation.: If time is entered above; I have spent that time in minutes in the direct care of this critically ill patient, excluding procedure time. ED Disposition Clinical Impression: UTI (urinary tract infection), Suprapubic catheter Disposition: - TO HOME OR SELFCARE Is pt being admited?: No Does the pt Need Aspirin: No Condition: Stable Instructions: Urinary Tract Infection in Women (ED), How to Care for Your Suprapubic Catheter (ED) Referrals: PRIMARY CAREMD [Primary Care Provider] - 3-5 Days Time of Disposition: 17:06
== END 2018-11-08 17:37 | disposition home or self-care (01) ==
LOC: ED 13:38
DX: N39.0 Urinary tract infection, site not specified (principal); I10 Essential (primary) hypertension; E11.9 Type 2 diabetes mellitus without complications; F31.9 Bipolar disorder, unspecified; F03.90 Unspecified dementia, unspecified severity, without behavioral disturbance, psychotic disturbance, mood disturbance, and anxiety; F20.9 Schizophrenia, unspecified; Z90.49 Acquired absence of other specified parts of digestive tract; Z96.0 Presence of urogenital implants; Z98.890 Other specified postprocedural states; Z79.899 Other long term (current) drug therapy
CPT/HCPCS: 36415; 80053; 81001; 85025